=== PATIENT | male | born 1935 | race Caucasian/White ===

== ENCOUNTER → 2017-10-18 08:29 | Outpatient (CLI) | payer MEDICARE, SELFPAY ==
[2017-10-18 10:05] LABS: Absolute Neutrophil Count 3.3 X10^3/uL (2.0-7.7); Basophil# 0.04 X10^3/uL; Basophil% 0.6 % (0-1); Eosinophil# 0.39 X10^3/uL; Eosinophils% 6.3 % (0-5); Hematocrit 45.8 % (40-54); Hemoglobin 14.8 g/dl (13.0-16.5); Lymphocyte % 25.9 % (19-41); Mean Corp Hgb Conc 32.3 g/gl (32-36); Mean Corpuscular Hgb 29.7 pg (27.0-32.0); Monocyte# 0.83 X10^3/uL; Monocyte% 13.5 % (0-10); Neutrophil % 53.5 % (47-70); Platelet Count 205 K/mm3 (150-450); RBC Distribution Width CV 13.6 % (11.6-14.6); RBC Distribution Width SD 45.5 fl (35.1-43.9); Red Blood Count 4.98 M/mm3 (4.6-6.2); White Blood Count 6.2 K/mm3 (4.4-11.0)
[2017-10-18 10:13] LABS: POSITIVE COUNT NO; POSITIVE DIFFERENTIAL NO; POSITIVE MORPHOLOGY NO
[2017-10-18 10:18] LABS: ALB/GLOB Ratio 1.3 RATIO (0.9-2.4); AST(SGOT) 18 U/L (15-37); Alanine Aminotransfer ALT/SGPT 25 U/L (16-61); Alkaline Phosphatase 85 U/L (45-117); Anion Gap 10 (5-15); BUN 23 mg/dL (7-18); BUN/Creat Ratio 21.9 RATIO (10-20); Calcium,Total 9.1 mg/dL (8.5-10.1); Chloride 105 mmol/L (98-107); Creatinine, Serum 1.05 mg/dL (0.70-1.30); EST Glomerular Filtration Rate 72 mL/min (>60); Est Glom Filt Rate - Afr Amer 87 mL/min (>60); Globulin 3.1 g/dL (2.2-4.2); Glucose 95 mg/dL (74-106); Potassium 3.9 mmol/L (3.5-5.1); Protein, Total 7.1 g/dL (6.4-8.2); Sodium Level 142 mmol/L (136-145)
[2017-10-18 10:24] LABS: Vitamin D,25 Hydroxy 38.1 ng/mL (29.95-100.01)
== END ==
PROVIDERS: Family Provider Internal Medicine; PCP Internal Medicine; Visit Provider Internal Medicine
DX: E55.9 Vitamin D deficiency, unspecified (principal); I10 Essential (primary) hypertension
CPT/HCPCS: 36415; 80053; 82306; 85025

== ENCOUNTER → 2018-06-17 | Outpatient (CLI) | payer MEDICARE, SELFPAY ==
[2018-06-02 08:55] VITALS: BMI 29.1
--- NOTE | 2018-06-17 08:08 | ECHOD_ITS ---
Reason For Study: Murmur Procedure This was a 2D Doppler, Color Flow transthoracic echocardiogram. The exam was of adequate technical quality. Exam performed in department. Left Ventricle Normal LV size. Sigmoid septum. Apical false tendon noted. Left ventricular systolic function is normal. The estimated ejection fraction is 60 %. No evidence for diastolic dysfunction. No regional wall motion abnormalities noted. Right Ventricle Normal RV size. Normal systolic function. Atria Normal left atrium. Normal right atrium. No doppler evidence for ASD. Mitral Valve There is mild mitral annular calcification. Extension of the mitral annular calcification onto the base of the posterior mitral valve leaflet. Trivial mitral valve insufficiency. Tricuspid Valve Normal tricuspid valve. Trivial tricuspid valve insufficiency. Right ventricular systolic pressure estimated to be 24 mmHg. Aortic Valve Trisinus/trileaflet aortic valve. Mild diffuse aortic valve thickening. Mild-Moderate (1-2+) aortic valve insufficiency. Pulmonic Valve The pulmonic valve is not well visualized. Trivial pulmonic valve insufficiency. Great Vessels Mild to moderately dilated aortic root. Pericardium/Pleural No pericardial effusion. MMode/2D Measurements & Calculations LVIDd: 4.3 cm IVSd: 0.90 cm Ao root diam: 4.4 cm LVIDs: 2.4 cm LVPWd: 0.95 cm RVDd: 3.5 cm FS: 43.0 % LAV(MOD-bp): 49.0 ml LA A4 area: 14.6 cm2 LA dimension(2D): 3.3 cm LAV(MOD-bp) Indexed: 25.6 ml/m2 LAV(MOD-sp2): 55.3 ml LAV(MOD-sp4): 38.8 ml RA A4 area: 16.2 cm2 Doppler Measurements & Calculations MV E max sahil: 55.3 cm/sec Lat Peak E' Sahil: 6.7 cm/sec Med Peak E' Sahil: 4.7 cm/sec MV A max sahil: 80.6 cm/sec E/E' lat: 8.3 E/E' med: 11.7 MV E/A: 0.69 Ao V2 max: 153.9 cm/sec AI max sahil: 348.0 cm/sec LV V1 max: 113.2 cm/sec Ao max P.5 mmHg AI max P.5 mmHg LV V1 max P.1 mmHg AI dec slope: 165.0 cm/sec2 AI P1/2t: 617.8 msec PA V2 max: 80.6 cm/sec TR max sahil: 230.9 cm/sec TR max P.3 mmHg Interpretation Summary Left ventricular systolic function is normal. The estimated ejection fraction is 60 %. Sigmoid septum. Apical false tendon noted. There is mild mitral annular calcification. Extension of the mitral annular calcification onto the base of the posterior mitral valve leaflet. Trivial mitral valve insufficiency. Trivial tricuspid valve insufficiency. Mild diffuse aortic valve thickening. Mild-Moderate (1-2+) aortic valve insufficiency. Trivial pulmonic valve insufficiency. Mild to moderately dilated aortic root. Right ventricular systolic pressure estimated to be 24 mmHg. No evidence for diastolic dysfunction. Ordering Physician: Chon Almanzar Referring Physician: Keisha Briscoe M.D. Performed By: Rachelle Koenig [facility]
== END | disposition home or self-care (01) ==
PROVIDERS: Family Provider Internal Medicine; PCP Internal Medicine; Referring Provider Internal Medicine Cardiovascular Disease; Visit Provider Internal Medicine Cardiovascular Disease
DX: I25.10 Atherosclerotic heart disease of native coronary artery without angina pectoris (principal); I35.1 Nonrheumatic aortic (valve) insufficiency
CPT/HCPCS: 93306

== ENCOUNTER 2019-01-01 06:57 | Observation (INO) | payer MEDICARE, SELFPAY ==
[2018-12-17 15:01] VITALS: BMI 29.7
[2019-01-01] VITALS (12 sets, daily range): BP systolic 120–139; BP diastolic 53–80; PULSE 53–71; RESP 12–19; TEMP 36.4–36.8; O2SAT 92–96; BMI 28.4; BMI 28.5
[2019-01-01 07:06] LABS: Bedside Glucose 104 mg/dL (70-110)
--- NOTE | 2019-01-01 07:11 | EKG12_ITS ---
Test Reason : Blood Pressure : / mmHG Vent. Rate : 058 BPM Atrial Rate : 058 BPM P-R Int : 232 ms QRS Dur : 088 ms QT Int : 428 ms P-R-T Axes : 033 -23 018 degrees QTc Int : 420 ms Sinus bradycardia with 1st degree A-V block Minimal voltage criteria for LVH, may be normal variant Borderline ECG Confirmed by JANETTE NINA, JACINTA ([id number]), editor at large MAHOGANY GARCIA ([id number] on 01/06/2019 11:20:17 AM Referred By: COURTNEY Confirmed By:JACINTA SAVAGE MD
--- NOTE | 2019-01-01 07:11 | CT_ITS ---
STUDY: CT BRAIN WITHOUT CONTRAST REASON FOR EXAM: Male, 83 years old. Dizziness and left arm weakness after being injected for nuclear medicine stress test. RADIATION DOSAGE (If Supplied By Facility): CTDIvol = ( 44.99 ) mGy, DLP = ( 815.79 ) mGycm TECHNIQUE: Transaxial CT imaging of the brain was performed without administration of intravenous contrast material. Individualized dose optimization techniques were used for this CT. COMPARISON: No relevant priors. FINDINGS: Normal soft tissue structures. Normal calvarium. There is mild cerebral atrophy with widening of the extra-axial spaces and ventricular dilatation. There are areas of decreased attenuation within the white matter tracts of the supratentorial brain, consistent with microvascular disease changes. Normal basal ganglia and thalami. Normal brainstem. There is mild cerebellar atrophy. There is mild atherosclerotic calcification of the left cavernous carotid artery.. There is no intracranial hemorrhage. There are no findings of an acute ischemic infarction. There is minimal mucoperiosteal thickening in bilateral maxillary, ethmoid, and sphenoid sinuses. There is no evidence for acute sinusitis. CT/Brain/Head without Contrast IMPRESSION: Chronic involutional changes of the brain. No demonstrated acute intracranial process. Electronically Signed: Philip Hooper MD at 8:01 EST , Service support ,
--- NOTE | 2019-01-01 07:13 | ED.DCSUM_ITS ---
History of Present Illness Chief Complaint: Dizziness Informant: Patient, Significant Other Onset: Today Narrative: Patient presents to the nuclear stress lab. He was at the hospital this morning for nuclear stress test. They injected him with the radionuclide into an IV that have been established with a right AC. Patient states shortly after the injection he became very dizzy and felt as if he was drunk. He had difficulty using his arms, left greater than right. He denies difficulty with his legs but again states that he was walking like he was drunk. Symptoms lasted somewhere between 5 and 15 minutes and are resolved at this time. Patient states he amilcar ntflorencia feels back to baseline. He denies having any chest pain or palpitations during the episode. He denies history of stroke or TIA. - Past Medical History (1) Atherosclerotic heart disease of [place] coronary artery without angina pectoris Status: Chronic (2) Essential hypertension Status: Chronic (3) Nonrheumatic aortic valve insufficiency Status: Chronic (4) Pure hypercholesterolemia Status: Chronic (5) Thoracic aortic aneurysm without rupture Status: Chronic Past Medical History - Allergies and Home Meds Allergies/Adverse Reactions: Allergies Penicillins Allergy (Verified 01/01/19 07:00) Unknown Primary Care Physician: Keisha Briscoe MD [Primary Care Provider] - Doctors: Dr. Almanzar Prior records reviewed: Yes Lives: Spouse/ Significant Other Smoking Status: Never smoker Review of Systems General: Denies: Chills, Fever Eyes: Denies: Visual changes - bilaterally ENT: Denies: Bilateral ear pain Cardiovascular: Denies: Chest pain, Palpitations Respiratory: Denies: Dyspnea, Cough Gastrointestinal: Denies: Abdominal pain, Nausea, Vomiting, Diarrhea Musculoskeletal: Denies: Extremity Pain Skin: Denies: Rash Neurological: Reports: Weakness. Denies: Headache Allergy: Denies: Uticaria Physical Exam Vital Signs/Narrative: Vital Signs Temp Pulse Resp BP Pulse Ox 01/01/19 06:58 97.5 F L 56 L 12 139/62 H 95 Inital Vital Signs reviewed: Yes General: Well nourished, Well developed Head: Normocephalic ENT: Moist mucous membranes Neck: Supple Cardiovascular: Regular rate, Regular rhythm Respiratory: No distress, CTA bilaterally Abdomen: Soft, Nontender Extremities: Nontender, No edema Skin: Normal color, No rash Neurological: Alert, Oriented x3, Normal Strength, Normal Sensation, - - NIH equals 0 Psychological: Normal affect Diagnostic/Tx/Re-eval Impressions Brain CT 01/01/19 07:11 IMPRESSION: Chronic involutional changes of the brain. No demonstrated acute intracranial process. Electronically Signed: Philip Hooper MD at 8:01 EST , Service support , Chest X-Ray 01/01/19 07:15 IMPRESSION: Degenerative changes, as described above. No demonstrated acute cardiopulmonary process. Electronically Signed: Ingram Joslyn, at 7:44 EST Tel , Service support , 01/01/19 07:11 Brain/Head without Contrast [CT] Stat 01/01/19 07:15 Chest 1 View (Portable) [RAD] Stat Laboratory Results 01/01/19 01/01/19 01/01/19 07:02 07:15 07:15 WBC 5.8 RBC 4.81 Hgb 14.5 Hct 43.4 MCV 90.2 MCH 30.1 MCHC 33.4 RDW Std Deviation 41.8 RDW Coeff of Mt 12.8 Plt Count 191 MPV 9.8 Immature Gran % (Auto) 0.500 Neut % (Auto) 67.2 Lymph % (Auto) 16.0 L Geary % (Auto) 10.0 Eos % (Auto) 5.3 H Baso % (Auto) 1.0 Absolute Neuts (auto) 3.9 Absolute Lymphs (auto) 0.93 Nucleated RBC % 0 Sodium 143 Potassium 3.8 Chloride 109 H Carbon Dioxide 26.0 Anion Gap 8 BUN 27 H Creatinine 1.10 Estim Creat Clear Calc 50.95 Est GFR (MDRD) Af Amer 83 Est GFR (MDRD) Non-Af 68 BUN/Creatinine Ratio 24.5 H Glucose 100 Calcium 8.9 Troponin I < 0.015 POC Glucose 104 - EKG Initial EKG Interpretation: Sinus Bradycardia - Sinus bradycardia 58 bpm with no acute ischemia. - Medical Decision Making Patient has been given IV fluids here. He said no recurrence of symptoms. I did review the patient's last 2 cardiology visits and his heart rate has been in the mid 50s at that time as well. I spoke with Dr. Almanzar. He states the text and the nuclear lab were quite concerned that his symptoms seem to affect primarily his left arm and they were worried about stroke. Patient had NIH score of 0 on arrival here. I spoken with patient and we will admit patient for further TIA work-up. ED Disposition - Plan for ED Patient: Disposition: Acute Care Hospital [facility] Diagnosis: TIA (transient ischemic attack) Referrals: Keisha Briscoe MD [Primary Care Provider] -
--- NOTE | 2019-01-01 07:15 | RAD_ITS ---
STUDY: X-RAY CHEST REASON FOR EXAM: Male, 83 years old. SOB/DYSPNEA, DIZZINESS, LEFT ARM WEAKNESS S/P INJECTION FOR STRESS TEST TODAY; PATIENT STATES HAS KNOWN AORTIC ANEURYSM TECHNIQUE: Frontal and lateral views of the chest. COMPARISON: None. FINDINGS: The lungs are clear and expanded. There is no demonstrated pleural abnormality. Normal size heart. Normal mediastinum and latoya. Normal visualized pulmonary arteries. There is atherosclerotic calcification of the aortic arch with tortuosity. There is mild old compression fracture of T10. There is degenerative osteoarthritis of the bilateral shoulders. There is no demonstrated abnormality of the visualized soft tissue structures of the upper abdomen. RAD/Chest 1 View (Portable) IMPRESSION: Degenerative changes, as described above. No demonstrated acute cardiopulmonary process. Electronically Signed: Juan Jose Jorgensen, at 7:44 EST Tel , Service support ,
[2019-01-01 07:29] LABS: Absolute Lymphocyte Count 0.93 X10^3/uL (0.83-4.51); Absolute Neutrophil Count 3.9 X10^3/uL (2.0-7.7); Basophil# 0.06 X10^3/uL; Eosinophil# 0.31 X10^3/uL; Eosinophils% 5.3 % (0-5); Hematocrit 43.4 % (40-54); Hemoglobin 14.5 g/dL (13.0-16.5); Lymphocyte # 0.93 X10^3/ul (4.0); Mean Corp Hgb Conc 33.4 g/dL (32-36); Mean Corpuscular Hgb 30.1 pg (27.0-32.0); Mean Corpuscular Volume 90.2 fL (80-94); Mean Platelet Vol. 9.8 fl (6.2-12.0); Monocyte# 0.58 X10^3/uL; NRBC Flagged by Analyzer 0 % (0-5); Neutrophil # 3.89 X10^3/uL (2.7-7.7); Neutrophil % 67.2 % (47-70); Platelet Count 191 K/mm3 (150-450); RBC Distribution Width CV 12.8 % (11.6-14.6); RBC Distribution Width SD 41.8 fl (35.1-43.9); Red Blood Count 4.81 M/mm3 (4.6-6.2); White Blood Count 5.8 K/mm3 (4.4-11.0)
[2019-01-01] MEDS: 0.9% Normal Saline 1,000 ML 150 ML IV (07:29)
[2019-01-01 07:38] LABS: Anion Gap 8 (5-15); BUN 27 mg/dL (7-18); BUN/Creat Ratio 24.5 RATIO (10-20); Calcium,Total 8.9 mg/dL (8.5-10.1); Chloride 109 mmol/L (98-107); EST Glomerular Filtration Rate 68 mL/min (>60); Est Glom Filt Rate - Afr Amer 83 mL/min (>60); Estimated Creatinine Clearance 50.95 ml/min; Glucose 100 mg/dL (74-106); Potassium 3.8 mmol/L (3.5-5.1); Sodium Level 143 mmol/L (136-145)
--- NOTE | 2019-01-01 09:17 | MRI_ITS ---
STUDY: MRI BRAIN WITHOUT CONTRAST REASON FOR EXAM: Male, 83 years old. dizziness after medication injection for stress test ,rt arm wea. TECHNIQUE: Standardized multiplanar fat and water weighted pulse sequences were obtained. COMPARISON: 01/01/2019 CT of the head FINDINGS: There is mild cerebral atrophy with widening of the extra-axial spaces and ventricular dilatation. There are a limited number of small white matter hyperintensities, distributed throughout the deep white matter tracts of the cerebral hemispheres, consistent with minimal chronic white matter ischemic changes. Normal bilateral basal ganglia. Normal thalami. There is no extra-axial fluid accumulation. Normal flow voids within the major intracranial circulation suggesting patency by spin echo criteria. Normal sella turcica, pituitary gland, infundibular stalk, optic chiasm and hypothalamus. Normal tectal plate and pineal gland. Normal midbrain, sukhwinder and medulla. Normal cerebellum. Normal basal cisterns. MRI/Brain without Contrast IMPRESSION: No acute intracranial abnormality. Minimal chronic microvascular ischemic changes. Electronically Signed: Kee Lira MD at 14:21 EST Tel , Service support ,
--- NOTE | 2019-01-01 09:17 | MRI_ITS ---
STUDY: MRA NECK WITHOUT CONTRAST REASON FOR EXAM: Male, 83 years old. dizziness after medication injection for stress test ,rt arm wea. TECHNIQUE: Source images were obtained, MIPs were performed. The study was performed unenhanced. COMPARISON: None. FINDINGS: RIGHT CAROTID ARTERIES: Antegrade flow within the right common carotid artery (CCA). Antegrade flow within the right carotid bulb. There appears to be moderate atherosclerotic plaque formation of the origin of the right internal carotid artery with an estimated stenosis of greater than 70% stenosis. Antegrade flow within the visualized cervical portion of the right internal carotid artery. LEFT CAROTID ARTERIES: Antegrade flow within the left common carotid artery (CCA). Antegrade flow within the left common carotid bulb. There appears to be moderate atherosclerotic plaque formation of the origin of the left internal carotid artery with an estimated stenosis of 50% stenosis. Antegrade flow within the visualized cervical portion of the left internal carotid artery. VERTEBRAL ARTERIES: Antegrade flow within the bilateral vertebral artery. 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 Further evaluation with CTA is recommended. Electronically Signed: Kee Lira MD at 14:29 EST Tel , Service support ,
--- NOTE | 2019-01-01 09:17 | MRI_ITS ---
STUDY: MRA OF THE HEAD WITHOUT CONTRAST REASON FOR EXAM: Male, 83 years old. dizziness after medication injection for stress test ,rt arm wea. TECHNIQUE: 3-D [id number] (TOF) imaging was performed with MIPs. The study was performed unenhanced. COMPARISON: None. FINDINGS: Patent right cavernous carotid artery. Patent left cavernous carotid artery. Patent right A1 segments of the anterior cerebral artery. Patent left A1 segments of the anterior cerebral artery. Unremarkable anterior communicating artery (ACOM) region. Normal bilateral A2 segments of the anterior cerebral arteries. Patent right M1 and M2 segments of the middle cerebral arteries, with a unremarkable M1 bifurcation. Patent left M1 and M2 segments of the middle cerebral arteries, with a unremarkable M1 bifurcation. There is non-visualization of the right posterior communicating artery (PCOM). There is non-visualization of the left posterior communicating artery (PCOM). Patent basilar artery with a normal basilar bifurcation. Patent bilateral posterior cerebral arteries. MRI/MRA Head ONLY without Contrast IMPRESSION: No occlusion or significant stenosis. Electronically Signed: Kee Lira MD at 14:23 EST Tel , Service support ,
[2019-01-01 09:50] LABS: Cholesterol 115 mg/dL (200); High Density Lipoprotein 46 mg/dL; Thyroid Stim Hormone (TSH) 1.91 uIU/mL (0.358-3.74); Triglycerides 89 mg/dL; Very Low Density Lipoprotein 18 mg/dL (5-40)
--- NOTE | 2019-01-01 10:16 | PCM.HP.STD ---
Problem List (1) TIA (transient ischemic attack) Status: Acute (2) Pure hypercholesterolemia Status: Chronic (3) Essential hypertension Status: Chronic (4) Thoracic aortic aneurysm without rupture Status: Chronic History of Present Illness Date of Admission: 01/01/19 Chief Complaint: Dizziness, left arm weakness. The patient is a 83 year old M with past medical history as mentioned above presented to the emergency room because of dizziness and left arm weakness. This morning, patient had nuclear stress test, and received the IV radionuclide and shortly after, he became dizzy, lightheaded and he felt that he was a drunk. He mentioned that he had difficulty using both arms but weakness was more on the left arm, was not able to put his coat on and those symptoms lasted for several minutes. He reported associated mild blurred vision. He denied slurred speech, numbness or tingling. He denied chest pain, palpitation, sweating, syncope or presyncope. He had a history of hypertension and he has been on metoprolol and his blood pressure has been under control. He has a history of benign prostatic hypertrophy and he has been on Flomax and Avodart. He had a history of thoracic aortic aneurysm which has been stable on follow-ups. Upon arrival to ED, his NIH score was 0. His heart rate was in the high 50s, otherwise his vital signs are stable. Routine blood work was unremarkable. EKG revealed bradycardia, heart rate of 58, first-degree AV block with VT interval of 232 ms, no other acute findings. Troponin was negative. Chest x-ray showed no acute findings. CT scan brain showed no acute infarct or hemorrhage. He is being admitted for TIA for evaluation. Past Medical History Past Medical History (Chronic Problems): Chronic Problems (Last Updated 01/01/19 @ 10:16 by Radha Esquivel MD) Pure hypercholesterolemia (Chronic) Essential hypertension (Chronic) Fatigue (Chronic) SOB (shortness of breath) (Chronic) Thoracic aortic aneurysm without rupture (Chronic) Nonrheumatic aortic valve insufficiency (Chronic) Medical History: Medical History (Last Updated 01/01/19 @ 10:16 by Radha Esquivel MD) Pure hypercholesterolemia (Chronic) E78.00 Essential hypertension (Chronic) I10 Thoracic aortic aneurysm without rupture (Chronic) I71.2 Nonrheumatic aortic valve insufficiency (Chronic) I35.1 Osteoarthritis M19.90 BPH (benign prostatic hyperplasia) N40.0 Hypertension (Inactive) I10 Allergies Penicillins Allergy (Verified 01/01/19 07:00) Unknown Home Medications: Ambulatory Orders Medication Instructions Recorded Aspirin [Aspirin, Baby] 81 mg PO DAILY@0800 04/14/16 Calcium Carb,Gluc/Mag Ox,Gluc 1 ea PO BID 04/14/16 [Calcium Magnesium Caplet] Citalopram [Celexa] 10 mg PO DAILY 04/14/16 Dutasteride [Avodart] 0.5 mg PO DAILY 04/14/16 Multivit-Min/FA/Lycopen/Lutein 1 ea PO DAILY 04/14/16 [Centrum Silver Men Tablet] [place]-3 Fatty Acids/Fish Oil 1 ea PO DAILY 04/14/16 [[place] 3 1,000 mg Softgel] Pravastatin [Pravachol] 40 mg PO DAILY 04/14/16 tamsulosin 0.4 mg capsule 0.4 mg PO QDAY 01/22/17 coenzyme Q10 30 mg capsule 30 mg PO QDAY 01/24/17 metoprolol tartrate 25 mg tablet 12.5 mg PO BID tab 01/24/17 vit 2 tab PO DAILY 01/24/17 Z-zgwwagl-qawsqfkfx-rutin-[id number] 500 mg-50 mg-25 mg-40 mg tablet vit C,E,zinc,copper-fonci9d 250 1 cap PO DAILY 11/04/17 mg-lutein 5 mg-zeaxanthin 1 mg capsule Surgical History: Surgical History (Last Reviewed 12/17/18 @ 15:03 by Xochitl Duarte) H/O hemorrhoidectomy Z98.890 H/O hernia repair Z98.890, Z87.19 Surgical History: herniorrhaphy Psychiatric History: No pertinent psych hx Lives: Spouse/ Significant Other Smoking Status: Never smoker Alcohol: None Drugs: None - *Family History Maternal Family History: Family History (Last Reviewed 12/17/18 @ 15:03 by Xochitl Duarte) Father CAD (coronary artery disease) Mother CAD (coronary artery disease) History Items: No pertinent history Paternal Family History: Family History (Last Reviewed 12/17/18 @ 15:03 by Xochitl Duarte) Father CAD (coronary artery disease) Mother CAD (coronary artery disease) History Items: No pertinent history Review of Systems Constitutional: Reports: Weakness. Denies: Anorexia, Chills, Fever Eyes: Reports: Blurred vision. Denies: Double vision, Drainage, Redness HEENT: Denies: Difficulty Hearing, Ear Pain, Eye Pain, Nasal Congestion, Sore Throat Cardiovascular: Reports: Light Headedness. Denies: Chest Pain, Chest Pressure, Chest Tightness, Heaviness, Palpitations, Syncope Respiratory: Denies: Cough, Hemoptysis, Pleuritic Pain, Shortness of Breath, Sputum production, Wheezing Gastrointestinal: Denies: Abdominal Pain, Constipation, Diarrhea, Nausea, Vomiting Genitourinary: Denies: Dysuria, Frequency, Hematuria Musculoskeletal: Denies: Arm Pain, Back Pain, Foot Pain Skin: Denies: Dryness, Rash Neurological: Reports: Blurred vision, Focal weakness. Denies: Balance problems, Change in Speech, Slurred speech, Confusion, Headaches Psychiatric: Denies: Anxiety, Depression Endocrine: Denies: Change in Body Habitus, Polydipsia, Polyuria VTE Information - Inpt Only VTE Present on Admission: No VTE Mechan Device Prophylaxis: None VTE Pharm Prophylaxis ordered?: Yes Patient Problems: Active and Suspected Problems (Last Updated 01/01/19 @ 10:16 by Radha Esquivel MD) TIA (transient ischemic attack) (Acute) - Physical Exam Vitals/I&O's: Vital Signs Temp Pulse Resp BP Pulse Ox 97.8 F 53 L 16 138/53 H 96 01/01/19 09:22 01/01/19 09:55 01/01/19 09:22 01/01/19 09:22 01/01/19 09:22 Oxygen Delivery Method Room Air Weight: 181 lb 10.574 oz Body Mass Index (BMI) 28.4 Finger Stick Blood Glucose 104 General: Alert, Oriented x3, Cooperative, No apparent distress HEENT: Atraumatic, PERRLA, EOMI, Normocephalic Oral: Moist Mucosa, No Gingival or Mucosal Lesions/ Ulcerations Neck: Supple, No JVD, Negative Carotid Bruits, Trachea Midline, Thyroid Normal Size and Texture Lungs: Clear to auscultation, Normal air movement, No rhonchi, No wheeze, No rales Cardiovascular: Regular rate, Regular Rhythm, Normal S1, Normal S2, PMI Normal, Bradycardic Abdomen: Bowel Sounds Present, Soft, Non Tender, Non-Distended, No Hepato-splenomegaly Extremities: No clubbing, No cyanosis, No edema Skin: No rashes, No breakdown Lymphatic: No Cervical, Supraclavicular, or Inguinal Adenopathy Neurological: Cranial nerves II-XII grossly intact, Motor Exam 5/5 strength throughout Psych/Mental Status: Normal Affect, Appropriate, Alert and oriented to time, place, person, mood and affect Laboratory Results 01/01/19 07:02: POC Glucose 104 01/01/19 07:15: WBC 5.8, RBC 4.81, Hgb 14.5, Hct 43.4, MCV 90.2, MCH 30.1, MCHC 33.4, RDW Std Deviation 41.8, RDW Coeff of Mt 12.8, Plt Count 191, MPV 9.8, Immature Gran % (Auto) 0.500, Neut % (Auto) 67.2, Lymph % (Auto) 16.0 L, [place] % (Auto) 10.0, Eos % (Auto) 5.3 H, Baso % (Auto) 1.0, Absolute Neuts (auto) 3.9, Absolute Lymphs (auto) 0.93, Nucleated RBC % 0 01/01/19 07:15: Sodium 143, Potassium 3.8, Chloride 109 H, Carbon Dioxide 26.0, Anion Gap 8, BUN 27 H, Creatinine 1.10, Estim Creat Clear Calc 50.95, Est GFR (MDRD) Af Amer 83, Est GFR (MDRD) Non-Af 68, BUN/Creatinine Ratio 24.5 H, Glucose 100, Calcium 8.9, Troponin I < 0.015 01/01/19 07:15: Triglycerides 89, Cholesterol 115, LDL Cholesterol 51, VLDL Cholesterol 18, HDL Cholesterol 46, TSH 1.91 Clinical Impression(s) from Imaging Studies Brain CT 01/01/19 07:11 IMPRESSION: Chronic involutional changes of the brain. No demonstrated acute intracranial process. Electronically Signed: Philip Hooper MD at 8:01 EST , Service support , Chest X-Ray 01/01/19 07:15 IMPRESSION: Degenerative changes, as described above. No demonstrated acute cardiopulmonary process. Electronically Signed: Juan Jose Jorgensen, at 7:44 EST Tel , Service support , Current Medications Acetaminophen (Tylenol) 650 mg PO Q6H PRN PRN PRN Reason: Pain Score 1-3/Temp > 100.7 F Acetylcysteine (Mucomyst) 1,200 mg PO BID [facility] Stop: 01/02/19 22:01 Aspirin (Aspirin, Baby) 81 mg PO DAILY@0800 [facility] Atorvastatin Calcium (Lipitor) 80 mg PO QHS [facility] Enoxaparin Sodium (Lovenox) 40 mg SC DAILY@1000 [place] Sodium Chloride () 1,000 mls @ 75 mls/hr IV .[id number] [facility] Stop: 01/01/19 22:36 Influenza Virus Vaccine Quadrival (Flucelvax /Fluzone ) 0.5 ml IM .ONCE ONE Stop: 01/01/19 09:23 Lorazepam (Ativan) 1 mg IV X1 ONE Stop: 01/01/19 10:09 Ondansetron HCl (Zofran) 4 mg IV Q8H PRN PRN PRN Reason: NAUSEA/VOMITING Sodium Chloride () 10 - 40 ml IV UD PRN PRN Reason: SALINE FLUSH Assessment/Plan All Active Problems (Last Updated 01/01/19 @ 10:16 by Radha Esquivel MD) TIA (transient ischemic attack) (Acute) This is an 83 years old male patient presented to the emergency because of dizziness and left arm weakness after he received IV radionuclide for nuclear stress test this morning and he is being admitted for TIA for evaluation. #1 TIA: Patient started having dizziness and left upper extremity weakness after he received IV radionuclide. Radionuclide does not cause any neurological symptoms as side effects. NIH score was 0 up to arrival to ER. No focal deficit on physical exam. His vitals are stable. Was bradycardic, as he has been in the 50s which is chronic for him and not new. CT scan brain showed no acute findings. EKG revealed sinus bradycardia, first-degree AV block, no other cardiac arrhythmias or acute ischemic changes. Plan: Admit to PCU for observation, cardiac monitoring, NIH stroke scale, start baby aspirin, Lipitor, fasting lipid profile, MRI brain, MRA of the head and neck, neurology consult, PT OT evaluation and treatment. Patient had 2D echocardiogram back on May, that revealed ejection fraction of 60%, trivial MR, trivial TR, mild to moderate aortic insufficiency, mild to moderate aortic root dilatation, RVSP of 24. At this time, I do not think that we need to repeat the echocardiogram at this time. #2 hypertension: Blood pressure stable, continue metoprolol. #3 hyperlipidemia: Started on Lipitor, fasting lipid profile. #4 thoracic aortic aneurysm: Stable, no acute issues. #5 benign prostatic hyperplasia: Continue Flomax and Avodart. #6 DVT prophylaxis: Subcu Lovenox. This note was generated with [employer] dictation software. It may contain incorrect words, spelling, and punctuation that were not noted in checking the note before signing. Code Visit OBSV E&M: 55651 Initial observation care L3
[2019-01-01] MEDS: LORazepam 2 MG/ML Syringe 1 MG IV (10:54)
[2019-01-01] MEDS: 0.9% Saline Lock 10 ML Syringe IV (10:54)
--- NOTE | 2019-01-01 11:12 | PCM.CONS.GEN ---
Problem List (1) Dizziness Status: Acute Reason for Consult Date of Consultation: 01/01/19 Reason for Consultation: Dizziness and possible left hand weakness History of Present Illness: The patient is a 83 year old M with PMH HTN, HLD, thoracic aortic aneurysm, BPH admitted with acute onset dizziness and possible left hand weakness. Per patient this morning 01/01/2019 he came in for a nuclear stress test, he was given injection in the arm and immediately after that he developed acute dizziness, was very wobbly while walking, he felt his left arm was incoordinated and possibly weak per patient, did not have any leg weakness, speech disturbances or visual disturbances at that time, the symptoms lasted for about 10-15 minutes per patient, per ED documentation his NIHSS stroke scale was 0 on admission to the ED. at present patient feels he is back to his baseline self, denies any headache, dizziness, speech problems, visual disturbances, sensory loss or focal motor weakness. Per patient he does take aspirin every day at baseline but had stopped it for the nuclear stress testing since yesterday. Per patient he lives with his , denies any falls, does not use any cane or walker to ambulate, does drive and does not need any assistance for his ADLs. CT head done on admission reported nothing acute. [] Past Medical History Past Medical History (Chronic Problems): Chronic Problems (Last Updated 01/01/19 @ 10:16 by Radha Esquivel MD) Pure hypercholesterolemia (Chronic) Essential hypertension (Chronic) Fatigue (Chronic) SOB (shortness of breath) (Chronic) Thoracic aortic aneurysm without rupture (Chronic) Nonrheumatic aortic valve insufficiency (Chronic) Medical History: Medical History (Last Updated 01/01/19 @ 10:16 by Radha Esquivel MD) Pure hypercholesterolemia (Chronic) E78.00 Essential hypertension (Chronic) I10 Thoracic aortic aneurysm without rupture (Chronic) I71.2 Nonrheumatic aortic valve insufficiency (Chronic) I35.1 Osteoarthritis M19.90 BPH (benign prostatic hyperplasia) N40.0 Hypertension (Inactive) I10 Allergies Penicillins Allergy (Verified 01/01/19 07:00) Unknown Home Medications: Ambulatory Orders Medication Instructions Recorded Aspirin [Aspirin, Baby] 81 mg PO DAILY@0800 04/14/16 Calcium Carb,Gluc/Mag Ox,Gluc 1 ea PO BID 04/14/16 [Calcium Magnesium Caplet] Citalopram [Celexa] 10 mg PO DAILY 04/14/16 Dutasteride [Avodart] 0.5 mg PO DAILY 04/14/16 Multivit-Min/FA/Lycopen/Lutein 1 ea PO DAILY 04/14/16 [Centrum Silver Men Tablet] [place]-3 Fatty Acids/Fish Oil 1 ea PO DAILY 04/14/16 [[place] 3 1,000 mg Softgel] Pravastatin [Pravachol] 40 mg PO DAILY 04/14/16 tamsulosin 0.4 mg capsule 0.4 mg PO QDAY 01/22/17 coenzyme Q10 30 mg capsule 30 mg PO QDAY 01/24/17 metoprolol tartrate 25 mg tablet 12.5 mg PO BID tab 01/24/17 vit 2 tab PO DAILY 01/24/17 T-isoofoc-lahcehusv-rutin-qyyv606 500 mg-50 mg-25 mg-40 mg tablet vit C,E,zinc,copper-gmivi4r 250 1 cap PO DAILY 11/04/17 mg-lutein 5 mg-zeaxanthin 1 mg capsule Surgical History: Surgical History (Last Reviewed 12/17/18 @ 15:03 by Xochitl Duarte) H/O hemorrhoidectomy Z98.890 H/O hernia repair Z98.890, Z87.19 Surgical History: herniorrhaphy Psychiatric History: No pertinent psych hx Lives: Spouse/ Significant Other Smoking Status: Never smoker Alcohol: None Drugs: None - *Family History Maternal Family History: Family History (Last Reviewed 12/17/18 @ 15:03 by Xochitl Duarte) Father CAD (coronary artery disease) Mother CAD (coronary artery disease) History Items: No pertinent history Paternal Family History: Family History (Last Reviewed 12/17/18 @ 15:03 by Xochitl Duarte) Father CAD (coronary artery disease) Mother CAD (coronary artery disease) History Items: No pertinent history Review of Systems Constitutional: Reports: - - Complete ROS negative except as documented in HPI Patient Problems: Active and Suspected Problems (Last Updated 01/01/19 @ 10:16 by Radha Esquivel MD) Dizziness (Acute) TIA (transient ischemic attack) (Acute) - Physical Exam Vitals/I&O's: Vital Signs Temp Pulse Resp BP Pulse Ox 97.8 F 53 L 16 138/53 H 96 01/01/19 09:22 01/01/19 09:55 01/01/19 09:22 01/01/19 09:22 01/01/19 09:22 Oxygen Delivery Method Room Air Weight: 82.4 kg Body Mass Index (BMI) 28.4 Finger Stick Blood Glucose 104 General: Alert HEENT: Normocephalic Neck: Supple Lungs: Normal air movement Cardiovascular: Normal S1, Normal S2 Abdomen: Bowel Sounds Present Extremities: No cyanosis Neurological: - - Conscious, alert, AOA x3, CN II to XII grossly intact, power 5/5 both upper and lower extremities, plantars B/L flexor, no pronator drift, no sensory loss, no cerebellar signs, gait deferred, reflexes + B/L B/S/T/K/A, No NR, fundus not visualized, NIHSS 0 at present, mRS 0 at baseline Psych/Mental Status: Normal Affect Laboratory Results 01/01/19 07:02: POC Glucose 104 01/01/19 07:15: WBC 5.8, RBC 4.81, Hgb 14.5, Hct 43.4, MCV 90.2, MCH 30.1, MCHC 33.4, RDW Std Deviation 41.8, RDW Coeff of Mt 12.8, Plt Count 191, MPV 9.8, Immature Gran % (Auto) 0.500, Neut % (Auto) 67.2, Lymph % (Auto) 16.0 L, [place] % (Auto) 10.0, Eos % (Auto) 5.3 H, Baso % (Auto) 1.0, Absolute Neuts (auto) 3.9, Absolute Lymphs (auto) 0.93, Nucleated RBC % 0 01/01/19 07:15: Sodium 143, Potassium 3.8, Chloride 109 H, Carbon Dioxide 26.0, Anion Gap 8, BUN 27 H, Creatinine 1.10, Estim Creat Clear Calc 50.95, Est GFR (MDRD) Af Amer 83, Est GFR (MDRD) Non-Af 68, BUN/Creatinine Ratio 24.5 H, Glucose 100, Calcium 8.9, Troponin I < 0.015 01/01/19 07:15: Triglycerides 89, Cholesterol 115, LDL Cholesterol 51, VLDL Cholesterol 18, HDL Cholesterol 46, TSH 1.91 Current Medications Acetaminophen (Tylenol) 650 mg PO Q6H PRN PRN PRN Reason: Pain Score 1-3/Temp > 100.7 F Acetylcysteine (Mucomyst) 1,200 mg PO BID [facility] Stop: 01/02/19 22:01 Aspirin (Aspirin, Baby) 81 mg PO DAILY@0800 [facility] Atorvastatin Calcium (Lipitor) 80 mg PO QHS [facility] Citalopram Hydrobromide (Celexa) 10 mg PO DAILY [facility] Enoxaparin Sodium (Lovenox) 40 mg SC DAILY@1000 [facility] Finasteride (Proscar) 5 mg PO DAILY [facility] Sodium Chloride () 1,000 mls @ 75 mls/hr IV .[id number] [facility] Stop: 01/01/19 22:36 Metoprolol Tartrate (Lopressor (Beta Sabina)) 12.5 mg PO BID [facility] Ondansetron HCl (Zofran) 4 mg IV Q8H PRN PRN PRN Reason: NAUSEA/VOMITING Sodium Chloride () 10 - 40 ml IV UD PRN PRN Reason: SALINE FLUSH Last Admin: 01/01/19 10:54 Dose: 10 ml Documented by: Tamsulosin HCl (Flomax) 0.4 mg PO DAILY@1700 [facility] Assessment/Plan All Active Problems (Last Updated 01/01/19 @ 10:16 by Radha Esquivel MD) Dizziness (Acute) TIA (transient ischemic attack) (Acute) The patient is a 83 year old M with PMH HTN, HLD, thoracic aortic aneurysm, BPH admitted with acute onset dizziness and possible left hand weakness. Per patient this morning 01/01/2019 he came in for a nuclear stress test, he was given injection in the arm and immediately after that he developed acute dizziness, was very wobbly while walking, he felt his left arm was incoordinated and possibly weak per patient, did not have any leg weakness, speech disturbances or visual disturbances at that time, the symptoms lasted for about 10-15 minutes per patient, per ED documentation his NIHSS stroke scale was 0 on admission to the ED. at present patient feels he is back to his baseline self, denies any headache, dizziness, speech problems, visual disturbances, sensory loss or focal motor weakness. Per patient he does take aspirin every day at baseline but had stopped it for the nuclear stress testing since yesterday. Per patient he lives with his , denies any falls, does not use any cane or walker to ambulate, does drive and does not need any assistance for his ADLs. CT head done on admission reported nothing acute. Impression Possible TIA vs Reaction to medication given for nuclear stress testing R/O Stroke Plan -Aspirin 81 mg p.o. once daily. Bleeding risk discussed in detail with the patient. ABCD 2 score of 3. NIHSS 0 -Lipitor 40 mg PO q hs -MRI brain, MRA head/neck -HbA1c pending, LDL 51 -TTE-pending -30-day event recorder on discharge -Cardiology consult -Stroke risk factors discussed and stroke education provided -Permissive HTN for 24 hrs -terminal superintendent goal BP < 130/80 mmHg, goal LDL < 70 and goal Hba1c < 7% -PT/OT/ST -GI/DVT prophylaxis -Fall precautions -Further medical management per hospitalist team -Please call with questions if any -Follow-up with neurology in 4 weeks -Thank you for allowing us to participate in patient's care and management This note has been generated using [employer] dictation software. It may contain incorrect words, spellings and punctuation that were not noted in the review of the note prior to signing Code Visit Inpatient E&M: 73092 Init Hosp L3
[2019-01-01] MEDS: 0.9% Normal Saline 1,000 ML 75 ML IV (12:36)
[2019-01-01] MEDS: Enoxaparin 40 MG/0.4 ML Syringe SC (12:42)
[2019-01-01] MEDS: Aspirin 81 MG TAB.CHEW PO (12:42)
[2019-01-01 12:44] LABS: Hemoglobin A1c 5.6 % (4.2-6.3)
[2019-01-01] MEDS: Acetylcysteine (Mucomyst Oral) 20% SOLN 1200 MG PO ×2 (12:50→21:51)
--- NOTE | 2019-01-01 15:36 | PCM.CONS.C ---
Problem List (1) Dizziness Status: Acute Reason for Consult Date of Consultation: 01/01/19 History of Present Illness: MSAOOD SIMON, is a 83 year old with history of CAD-not requiring PCI or CABG, aortic valve insufficiency, thoracic aortic aneurysm-ascending, hyperlipidemia, and hypertension. He had complained of mild chest discomfort which he had seen Dr. Almanzar who was this primary sustainability purchasing agent. Stress test was ordered. When the patient received technetium he started having dizziness and also he felt his left arm was incoordinated and possibly weak. He did not have any leg weakness, speech disturbances or visual disturbances at that time, the symptoms lasted for about 10-15 minutes per patient, per ED documentation his NIHSS stroke scale was 0 on admission to the ED. at present patient feels he is back to his baseline self, denies any headache, dizziness, speech problems, visual disturbances, sensory loss or focal motor weakness. Per patient he does take aspirin every day at baseline but had stopped it for the nuclear stress testing since yesterday. Per patient he lives with his , denies any falls, does not use any cane or walker to ambulate, does drive and does not need any assistance for his ADLs. CT head done on admission reported nothing acute. Review of systems: All systems reviewed. All else is negative except that in the HPI. Past Medical History Allergies/Adverse Reactions: Allergies Penicillins Allergy (Verified 01/01/19 07:00) Unknown Home Medications: Ambulatory Orders Medication Instructions Recorded Aspirin [Aspirin, Baby] 81 mg PO DAILY@0800 04/14/16 Calcium Carb,Gluc/Mag Ox,Gluc 1 ea PO BID 04/14/16 [Calcium Magnesium Caplet] Citalopram [Celexa] 10 mg PO DAILY 04/14/16 Dutasteride [Avodart] 0.5 mg PO DAILY 04/14/16 Multivit-Min/FA/Lycopen/Lutein 1 ea PO DAILY 04/14/16 [Centrum Silver Men Tablet] [place]-3 Fatty Acids/Fish Oil 1 ea PO DAILY 04/14/16 [[place] 3 1,000 mg Softgel] Pravastatin [Pravachol] 40 mg PO DAILY 04/14/16 tamsulosin 0.4 mg capsule 0.4 mg PO QDAY 01/22/17 coenzyme Q10 30 mg capsule 30 mg PO QDAY 01/24/17 metoprolol tartrate 25 mg tablet 12.5 mg PO BID tab 01/24/17 vit 2 tab PO DAILY 01/24/17 G-fzvnjgv-btcovbhye-[id number] 500 mg-50 mg-25 mg-40 mg tablet vit C,E,zinc,copper-lptuo4v 250 1 cap PO DAILY 11/04/17 mg-lutein 5 mg-zeaxanthin 1 mg capsule Past Medical History (Chronic Problems): Chronic Problems (Last Updated 01/01/19 @ 10:16 by Radha Esquivel MD) Pure hypercholesterolemia (Chronic) Essential hypertension (Chronic) Fatigue (Chronic) SOB (shortness of breath) (Chronic) Thoracic aortic aneurysm without rupture (Chronic) Nonrheumatic aortic valve insufficiency (Chronic) Surgical History: herniorrhaphy Psychiatric History: No pertinent psych hx - *Family History Maternal Family History: Family History (Last Reviewed 12/17/18 @ 15:03 by Xochitl Duarte) Father CAD (coronary artery disease) Mother CAD (coronary artery disease) History Items: No pertinent history Paternal Family History: Family History (Last Reviewed 12/17/18 @ 15:03 by Xochitl Duarte) Father CAD (coronary artery disease) Mother CAD (coronary artery disease) History Items: No pertinent history Lives: Spouse/ Significant Other Smoking Status: Never smoker Alcohol: None Drugs: None Objective: Vital Signs Temp Pulse Resp BP Pulse Ox 97.7 F L 61 17 131/80 H 96 01/01/19 13:22 01/01/19 13:22 01/01/19 13:22 01/01/19 13:22 01/01/19 13:32 Oxygen Delivery Method Room Air Weight: 181 lb 10.574 oz Body Mass Index (BMI) 28.4 Finger Stick Blood Glucose 104 Intake and Output for Last 24 Hours 12/30/18 12/31/18 01/01/19 23:59 23:59 23:59 Intake Total 615 / 615 Balance 615 / 615 General: Awake, Alert, Oriented x 3 HEENT: Atraumatic Oral: Moist Mucosa Neck: Supple Cardiovascular: Regular Rhythm Abdomen: Soft Extremities: No edema Musculoskeletal: No Erythema Skin: No Rashes Psych/Mental Status: Appropriate 01/01/19 07:15: WBC 5.8, RBC 4.81, Hgb 14.5, Hct 43.4, MCV 90.2, MCH 30.1, MCHC 33.4, Plt Count 191, MPV 9.8, Immature Gran % (Auto) 0.500, Neut % (Auto) 67.2, Lymph % (Auto) 16.0 L, Delta % (Auto) 10.0, Eos % (Auto) 5.3 H, Baso % (Auto) 1.0, Absolute Neuts (auto) 3.9, Nucleated RBC % 0 01/01/19 07:15: Sodium 143, Potassium 3.8, Chloride 109 H, Carbon Dioxide 26.0, Anion Gap 8, BUN 27 H, Creatinine 1.10, Est GFR (MDRD) Af Amer 83, Est GFR (MDRD) Non-Af 68, BUN/Creatinine Ratio 24.5 H, Glucose 100, Calcium 8.9, Troponin I < 0.015 01/01/19 07:15: Triglycerides 89, Cholesterol 115, LDL Cholesterol 51, VLDL Cholesterol 18, HDL Cholesterol 46 01/01/19 07:15: Hemoglobin A1c 5.6 Rhythm: EKG: ECHO: Stress Test: Cardiac Cath: PCI: CT Surgery: Holter monitor: EPS: PPM: CXR: Chest CT Scan: Assessment/Plan 1. Start as a possible side effect of technetium injection. His symptoms could have been related to the technetium injection however he is also getting work-up for TIA which is very reasonable. Patient's family member at bedside states that patient has had a stress test with technetium in the past and hasn't had a similar reaction. 2. Thoracic aortic aneurysm: Stable by CT done at [facility]. 3. Aortic insufficiency: 1-2+ by echo in 06/06
--- NOTE | 2019-01-01 16:25 | CDU_ITS ---
Reason For Study: TIA Rt. Velocities/BP Lt. Velocities/BP Prox CCA 174 cm/sec. Prox CCA 61.9/8 cm/sec. Mid CCA 59.6/7.7 cm/sec. Mid CCA 59.7/6.9 cm/sec. Dist CCA 52/6.5 cm/sec. Dist CCA 52/8 cm/sec. Prox ICA 132.3/27 cm/sec. Prox ICA 68.4/13.5 cm/sec. Mid ICA 141.1/27 cm/sec. Mid ICA 71.7/11.3 cm/sec. Dist ICA 85.8/10.3 cm/sec. Dist ICA 98.1/20.1 cm/sec. Rt. ICA/CCA = 2.4. Lt. ICA/CCA = 1.6. Prox ECA 79 cm/sec. Prox ECA 88.3 cm/sec. Rt. Vert. 34.4 cm/sec. Lt. Vert. 63.1/11.6 cm/sec. Right Extracranial There is homogeneous, smooth atherosclerotic plaque noted in the right common carotid artery. There is heterogeneous, irregular atherosclerotic plaque noted in the right internal carotid artery. There is intimal thickening but no significant atherosclerotic plaque noted in the right external carotid artery. Antegrade flow is noted in the right vertebral artery. Left Extracranial There is homogeneous, smooth atherosclerotic plaque noted in the left common carotid artery. There is heterogeneous, irregular atherosclerotic plaque noted in the left internal carotid artery. There is no significant atherosclerotic plaque noted in the left external carotid artery. Antegrade flow is noted in the left vertebral artery. Procedure Carotid Duplex [id number]. Exam performed portable in patient room. Interpretation Summary Moderate calcific plaque with shadowing white proximal internal carotid with 50-69% stenosis. <50% stenosis right external carotid Mild amount of irregular calcific plaque in the proximal left internal carotid with <50% stenosis <50% stenosis left external carotid Patent and antegrade vertebrals bilaterally Ordering Physician: Radha Esquivel Referring Physician: Keisha Briscoe M.D. Performed By: Anastacia Lazo RVT
[2019-01-01] MEDS: Tamsulosin HCl 0.4 MG Capsule PO (18:14)
[2019-01-01] MEDS: Atorvastatin Calcium 80 MG Tablet PO (21:51)
[2019-01-01] MEDS: Metoprolol Tartrate 25 MG Tablet 12.5 MG PO (22:04)
[2019-01-01] MEDS: MELATONIN 10 MG TABLET 5 MG PO (23:56)
[2019-01-02] VITALS (8 sets, daily range): BP systolic 125–129; BP diastolic 61–69; PULSE 45–62; RESP 16–17; TEMP 36.3–36.6; O2SAT 94–98
[2019-01-02 06:17] LABS: Anion Gap 7 (5-15); BUN 20 mg/dL (7-18); BUN/Creat Ratio 21.2 RATIO (10-20); Calcium,Total 8.2 mg/dL (8.5-10.1); Chloride 110 mmol/L (98-107); Creatinine, Serum 0.94 mg/dL (0.70-1.30); EST Glomerular Filtration Rate 81 mL/min (>60); Est Glom Filt Rate - Afr Amer 98 mL/min (>60); Estimated Creatinine Clearance 57.62 ml/min; Glucose 101 mg/dL (74-106); Potassium 3.9 mmol/L (3.5-5.1); Sodium Level 142 mmol/L (136-145)
--- NOTE | 2019-01-02 08:16 | PCM.PN.CARD ---
Subjectve: The patient is awake and alert. He denies any ongoing chest discomfort, difficulty breathing, or focal motor or sensory deficit at this time. Objective: Vital Signs Temp Pulse Resp BP Pulse Ox 97.8 F 59 L 17 129/61 H 96 01/02/19 03:46 01/02/19 07:02 01/02/19 03:46 01/02/19 03:46 01/02/19 03:46 Oxygen Delivery Method Room Air Weight: 181 lb 10.574 oz Body Mass Index (BMI) 28.4 Finger Stick Blood Glucose 104 Intake and Output for Last 24 Hours 12/31/18 01/01/19 01/02/19 23:59 23:59 23:59 Intake Total 1642 / 1642 1000 / 1000 Output Total 0 / 0 Balance 1642 / 1642 1000 / 1000 General: Awake, Alert, Oriented x 3, Cooperative, No Acute Distress HEENT: Atraumatic, Normocephalic, PERRL, EOMI, Sclera Non Icteric Oral: Moist Mucosa Neck: Supple, Good ROM Lungs: Clear to auscultation Cardiovascular: Regular Rhythm, Normal S1, Normal S2 Murmur Murmur: Grade 1/6, Soft, Mid Diastolic, LLSB Vascular: No Carotid Bruits Abdomen: Bowel Sounds Present, Soft, Non Tender Extremities: No edema Neurological: No Focal Motor or Sensory Deficit Psych/Mental Status: Appropriate 01/01/19 07:15: Triglycerides 89, Cholesterol 115, LDL Cholesterol 51, VLDL Cholesterol 18, HDL Cholesterol 46 01/01/19 07:15: Hemoglobin A1c 5.6 01/02/19 05:35: Sodium 142, Potassium 3.9, Chloride 110 H, Carbon Dioxide 25.0, Anion Gap 7, BUN 20 H, Creatinine 0.94, Est GFR (MDRD) Af Amer 98, Est GFR (MDRD) Non-Af 81, BUN/Creatinine Ratio 21.2 H, Glucose 101, Calcium 8.2 L Rhythm: Sinus rhythm Medical Necessity - Tobacco Use Smoking Status: Never smoker Assessment/Plan 1. TIA The patient demonstrated, following an injection of Cardiolite nuclear imaging agent yesterday, what was reported as symptoms and physical examination findings compatible with a focal neurologic deficit. The patient was not reported as becoming bradycardic or hypotensive. The etiology of the event raise concerns about a potential reaction to the Cardiolite nuclear imaging agent. It appears to been reported with a variety of potential side effects including alteration in taste, IV site related irritation, potentially bradycardia/hypotension, lightheadedness/dizziness, abdominal discomfort with nausea and emesis, however, based upon review of information available thus far and discussion with the manager nuclear, there is been no report of side effects resulting in focal neurologic deficits such as motor deficits, etc. Thus his clinical course raise concerns of another etiology explaining and/or contributing to event such as an underlying neurologic event. He has undergone evaluation with no definitive findings of an acute OUTBOUND TELEMARKETER event. However his evaluation has revealed concerns of right carotid artery stenosis being potentially greater than 70%. He is now pending further evaluation with a carotid artery duplex study. He may need formal peripheral vascular surgery consultation. 2. CAD The patient has a history of CAD. In the past it is been thought to be angiographically significant. He has been treated medically. Based upon his recent concerns of some chest discomfort he was to undergo further evaluation with the stress nuclear imaging study, which he has undergone in the past, to further evaluate for any obvious changes that would suggest a change in his underlying cardiovascular status warranting further evaluation care. This is now on hold pending his neurologic evaluation. In the future, he may need continued noninvasive and/or invasive evaluation. Consideration will have to be given at that time as to how to proceed, from a noninvasive standpoint, if there is any concerns with respect to utilizing a nuclear imaging agent. 3. Thoracic aortic aneurysm He has been evaluated extensively locally and at [facility] and at [facility]. He has chosen to follow with [facility] for this issue. He has not been recommended for surgical intervention as of yet. 4. Aortic valve insufficiency He will continue to be followed by history, exam, and echocardiogram as deemed appropriate. 5. Hyperlipidemia He will continue medical management as deemed appropriate. 6. Hypertension He will continue medical therapy with adjustment as needed. Comment: The patient's case was discussed and reviewed with the patient, his spouse, his daughter, and Dr. Esquivel. This note was generated using a voice recognition system and there may be incorrect words, spelling or punctuation that were not noted when reviewing the office note prior to saving.
[2019-01-02] MEDS: Aspirin 81 MG TAB.CHEW PO (09:12)
[2019-01-02] MEDS: Finasteride 5 MG Tablet PO (09:12)
[2019-01-02] MEDS: Enoxaparin 40 MG/0.4 ML Syringe SC (09:12)
[2019-01-02] MEDS: Metoprolol Tartrate 25 MG Tablet 12.5 MG PO (09:12)
[2019-01-02] MEDS: Citalopram 10 MG Tablet PO (09:12)
[2019-01-02] MEDS: Acetylcysteine (Mucomyst Oral) 20% SOLN 1200 MG PO (09:16)
--- NOTE | 2019-01-02 10:03 | CASEMGMT ---
BRITTANY CISSE NOTE: To room to talk with pt. Introduced self and role of BRITTANY CISSE. @ bedside. Reviewed GALVEZ form and pt denies having any questions. Form signed by pt, copy made and placed on chart, and original given to pt. Anastasiya THURMAN RN, CM
--- NOTE | 2019-01-02 10:15 | CT_ITS ---
STUDY: CTA HEAD AND NECK WITH CONTRAST REASON FOR EXAM: Male, 83 years old. DIZZY. RADIATION DOSAGE (If Supplied By Facility): CTDIvol = ( 29.75 ) mGy, DLP = ( 1551.72 ) mGycm TECHNIQUE: CT angiography was performed with a multi-detector CT scanner. Data acquisition was obtained from the skull base through the vertex following intravenous administration of IV Isovue 370 100. MIP images were reconstructed from the axial data set. Post-processing of the angiographic images was performed, with multiplanar reformation and 3D reconstruction. Individualized dose optimization techniques were used for this CT. COMPARISON: No relevant priors. FINDINGS: Normal bilateral petrous carotid arteries. There is calcified plaque formation of the right cavernous carotid artery, without a cross-sectional luminal stenosis. There is calcified plaque formation of the left cavernous carotid artery, without a cross-sectional luminal stenosis. Normal right A1 segments of the anterior cerebral artery. Normal left A1 segments of the anterior cerebral artery. Normal intact anterior communicating artery (ACOM). Normal bilateral A2 segments of the anterior cerebral arteries. Normal right M1 and M2 segments of the middle cerebral arteries, with a normal M1 bifurcation. Normal left M1 and M2 segments of the middle cerebral arteries, with a normal M1 bifurcation. Small right posterior communicating artery (PCOM). Small left posterior communicating artery (PCOM). Normal basilar artery with a normal basilar bifurcation. The visualized bilateral superior cerebellar (SCA) arteries are normal. Normal bilateral P1, P2 and visualized P3 segments of the posterior cerebral arteries. AORTIC ARCH: There is mild atherosclerotic plaque of the visualized aortic arch. RIGHT CAROTID ARTERIES: Normal right common carotid artery (CCA). There is mild atherosclerotic plaque formation with minimal narrowing of the right carotid bulb. There is extensive atherosclerotic plaque formation of the proximal right internal carotid artery (axial image #127 series 3) with an estimated stenosis of greater than 70%. Normal visualized cervical portion of the right internal carotid artery. Normal origin of the right external carotid artery (ECA). LEFT CAROTID ARTERIES: Normal left common carotid artery (CCA). There is mild atherosclerotic plaque formation with minimal narrowing of the left carotid bulb. There is mild atherosclerotic plaque formation of the origin of the left internal carotid artery with less than 50% cross sectional diameter stenosis. Normal visualized cervical portion of the left internal carotid artery. Normal origin of the left external carotid artery (ECA). VERTEBRAL ARTERIES: Normal bilateral vertebral arteries. CT/CTA Head AND Neck W/ Contrast IMPRESSION: Greater than 70% stenosis of the right ICA. Less than 50% stenosis of the left ICA. Electronically Signed: Kee Lira MD at 12:03 EST Tel , Service support ,
--- NOTE | 2019-01-02 12:32 | PCM.DC ---
- Discharge Diagnoses Current Active Problems: Current Active and Chronic Problems (Last Updated 01/01/19 @ 10:16 by Radha Esquivel MD) Dizziness (Acute) TIA (transient ischemic attack) (Acute) You will use the following diet at home:: Cardiac Your food should be the consistency of: Regular Discharge Activity: Return to Normal Activity Weight Bearing Status: Weight bearing as tolerated Call your doctor if you observe: Fever of 101 or Higher, Numbness or Tingling, Shortness of breath, Dizziness, Fainting spells, Chest pain, Increased palpitations (irregular heartbeat), Uncontrolled pain Allergies/Adverse Reactions: Allergies Penicillins Allergy (Verified 01/01/19 07:00) Unknown Medications to take at Discharge Aspirin [Aspirin, Baby] 81 mg PO DAILY@0800 04/14/16 Calcium Carb,Gluc/Mag Ox,Gluc [Calcium Magnesium Caplet] 1 ea PO BID 04/14/16 Citalopram [Celexa] 10 mg PO DAILY 04/14/16 Dutasteride [Avodart] 0.5 mg PO DAILY 04/14/16 Multivit-Min/FA/Lycopen/Lutein [Centrum Silver Men Tablet] 1 ea PO DAILY 04/14/16 [place]-3 Fatty Acids/Fish Oil [[place] 3 1,000 mg Softgel] 1 ea PO DAILY 04/14/16 Pravastatin [Pravachol] 40 mg PO DAILY 04/14/16 tamsulosin 0.4 mg capsule 0.4 mg PO QDAY 01/22/17 coenzyme Q10 30 mg capsule 30 mg PO QDAY 01/24/17 metoprolol tartrate 25 mg tablet 12.5 mg PO BID tab 01/24/17 vit B-itdqcrt-yzziukugk-rutin-[id number] 500 mg-50 mg-25 mg-40 mg tablet 2 tab PO DAILY 01/24/17 vit C,E,zinc,copper-ctnrx8r 250 mg-lutein 5 mg-zeaxanthin 1 mg capsule 1 cap PO DAILY 11/04/17 Clopidogrel Bisulfate [Plavix] 75 mg PO DAILY #21 tab 01/02/19 The following prescriptions were given: Clopidogrel Bisulfate [Plavix] 75 mg PO DAILY #21 tab Transmission Status: Pending to [id number] Primary Care Physician: Keisha Briscoe MD [Primary Care Provider] - Please follow up with your Primary Care Physician in: 1-2 week. Test Results: Test results from this visit will be discussed in further detail at your follow-up appointment, if applicable. Please Follow Up With: Abisai Powell MD When: as scheduled. Please Follow Up With: Nusrat Krishnan MD When: 4 weeks.
--- NOTE | 2019-01-02 12:54 | PN.NEURO_ITS ---
Patient Problems: Active and Suspected Problems (Last Updated 01/01/19 @ 10:16 by Radha Esquivel MD) Dizziness (Acute) TIA (transient ischemic attack) (Acute) Subjective: No issues overnight. Care discussed with the hospitalist staff. MRI brain negative for acute stroke. MRA head/neck reported to show greater than 70% sten osis in the right ICA, CTA head/neck reported to show greater than 70% stenosis in the right ICA. Per patient today he tells me that he had episodes of probable left hand weakness 1 to 2 weeks ago, where he could not close his fingers and the weakness lasted for few minutes before improving but patient did not seek any medical advice for the same. - Physical Exam Vitals/I&O's: Vital Signs Temp Pulse Resp BP Pulse Ox 97.4 F L 61 16 129/68 H 96 01/02/19 09:10 01/02/19 09:12 01/02/19 09:10 01/02/19 09:10 01/02/19 09:10 Oxygen Delivery Method Room Air Weight: 82.4 kg Body Mass Index (BMI) 28.4 Finger Stick Blood Glucose 104 Intake and Output for Last 24 Hours 12/31/18 01/01/19 01/02/19 23:59 23:59 23:59 Intake Total 1642 / 1642 1500 / 1500 Output Total 0 / 0 Balance 1642 / 1642 1500 / 1500 General: Alert HEENT: Normocephalic Neck: Supple Lungs: Normal air movement Cardiovascular: Normal S1, Normal S2 Abdomen: Bowel Sounds Present Extremities: No cyanosis Neurological: - - Conscious, alert, AOA x3, CN II to XII grossly intact, power 5/5 both upper and lower extremities, plantars B/L flexor, no pronator drift, no sensory loss, no cerebellar signs, gait deferred, reflexes + B/L B/S/T/K/A, No NR, fundus not visualized, NIHSS 0, mRS 0 at baseline Psych/Mental Status: Normal Affect Laboratory Results 01/02/19 05:35: Sodium 142, Potassium 3.9, Chloride 110 H, Carbon Dioxide 25.0, Anion Gap 7, BUN 20 H, Creatinine 0.94, Estim Creat Clear Calc 57.62, Est GFR (MDRD) Af Amer 98, Est GFR (MDRD) Non-Af 81, BUN/Creatinine Ratio 21.2 H, Glucose 101, Calcium 8.2 L Current Medications Acetaminophen (Tylenol) 650 mg PO Q6H PRN PRN PRN Reason: Pain Score 1-3/Temp > 100.7 F Acetylcysteine (Mucomyst) 1,200 mg PO BID [facility] Stop: 01/02/19 22:01 Last Admin: 01/02/19 09:16 Dose: 1,200 mg Documented by: Aspirin (Aspirin, Baby) 81 mg PO DAILY@0800 [facility] Last Admin: 01/02/19 09:12 Dose: 81 mg Documented by: Atorvastatin Calcium (Lipitor) 80 mg PO QHS [facility] Last Admin: 01/01/19 21:51 Dose: 80 mg Documented by: Citalopram Hydrobromide (Celexa) 10 mg PO DAILY [facility] Last Admin: 01/02/19 09:12 Dose: 10 mg Documented by: Enoxaparin Sodium (Lovenox) 40 mg SC DAILY@1000 [facility] Last Admin: 01/02/19 09:12 Dose: 40 mg Documented by: Finasteride (Proscar) 5 mg PO DAILY [facility] Last Admin: 01/02/19 09:12 Dose: 5 mg Documented by: Melatonin (Melatonin) 5 mg PO QHS PRN PRN Reason: SLEEP Last Admin: 01/01/19 23:56 Dose: 5 mg Documented by: Metoprolol Tartrate (Lopressor (Beta Sabina)) 12.5 mg PO BID [facility] Last Admin: 01/02/19 09:12 Dose: 12.5 mg Documented by: Ondansetron HCl (Zofran) 4 mg IV Q8H PRN PRN PRN Reason: NAUSEA/VOMITING Sodium Chloride () 10 - 40 ml IV UD PRN PRN Reason: SALINE FLUSH Last Admin: 01/01/19 10:54 Dose: 10 ml Documented by: Tamsulosin HCl (Flomax) 0.4 mg PO DAILY@1700 [facility] Last Admin: 01/01/19 18:14 Dose: 0.4 mg Documented by: STROKE Vital Signs/Narrative: Vital Signs Temp Pulse Resp BP Pulse Ox 01/02/19 09:12 61 01/02/19 09:10 97.4 F L 61 16 129/68 H 96 Medical Necessity - Tobacco Use Smoking Status: Never smoker Assessment/Plan All Active Problems (Last Updated 01/01/19 @ 10:16 by Radha Esquivel MD) Dizziness (Acute) TIA (transient ischemic attack) (Acute) The patient is a 83 year old M with PMH HTN, HLD, thoracic aortic aneurysm, BPH admitted with acute onset dizziness and possible left hand weakness. Per patient this morning 01/01/2019 he came in for a nuclear stress test, he was given injection in the arm and immediately after that he developed acute dizziness, was very wobbly while walking, he felt his left arm was incoordinated and possibly weak per patient, did not have any leg weakness, speech disturbances or visual disturbances at that time, the symptoms lasted for about 10-15 minutes per patient, per ED documentation his NIHSS stroke scale was 0 on admission to the ED. at present patient feels he is back to his baseline self, denies any headache, dizziness, speech problems, visual disturbances, sensory loss or focal motor weakness. Per patient he does take aspirin every day at baseline but had stopped it for the nuclear stress testing since yesterday. Per patient he lives with his , denies any falls, does not use any cane or walker to ambulate, does drive and does not need any assistance for his ADLs. CT head done on admission reported nothing acute. Impression Probable TIA (as patient had episodes of left hand weakness about 1-2 weakness ago) Right ICA > 70% stenosis Plan -Aspirin 81 mg p.o. once daily. Plavix 75 mg PO once daily. Dual AP for 3 weeks then switch to single AP with ASA. Bleeding risk discussed in detail with the patient. -Lipitor 40 mg PO q hs -MRI brain, MRA head/neck-reviewed -CTA head/neck reviewed -HbA1c 5.6, LDL 51 -TTE-pending -30-day event recorder on discharge -Vascular Surgery consult [facility] to evaluate for right CEA -Stroke risk factors discussed and stroke education provided -Avoid hypotension -skilled nursing goal BP < 130/80 mmHg, goal LDL < 70 and goal Hba1c < 7% -PT/OT/ST -GI/DVT prophylaxis -Fall precautions -Further medical management per hospitalist team -Please call with questions if any -Follow-up with neurology in 4 weeks -Thank you for allowing us to participate in patient's care and management This note has been generated using edoation software. It may contain incorrect words, spellings and punctuation that were not noted in the review of the note prior to signing
--- NOTE | 2019-01-02 13:52 | DS.PCM_ITS ---
Discharge Date and Diagnosis Date of Admission: 01/01/19 Date of Discharge: 01/02/19 - Primary Discharge Diagnosis #1 probable transient ischemic attack. #2 Right internal carotid artery stenosis more than 70%. - Secondary Discharge Diagnosis Chronic Problems (Last Updated 01/01/19 @ 10:16 by Radha Esquivel MD) Pure hypercholesterolemia (Chronic) Essential hypertension (Chronic) Fatigue (Chronic) SOB (shortness of breath) (Chronic) Thoracic aortic aneurysm without rupture (Chronic) Nonrheumatic aortic valve insufficiency (Chronic) Hospital Course and Treatment Imaging Results: 01/02/19 10:15 CTA Head AND Neck W/ Contrast [CT] Urgent Clinical Impression(s) from Imaging Studies Brain CT 01/01/19 07:11 IMPRESSION: Chronic involutional changes of the brain. No demonstrated acute intracranial process. Electronically Signed: Philip Hooper MD at 8:01 EST , Service support , Chest X-Ray 01/01/19 07:15 IMPRESSION: Degenerative changes, as described above. No demonstrated acute cardiopulmonary process. Electronically Signed: Juan Jose Jorgensen, at 7:44 EST Tel , Service support , Brain MRI 01/01/19 09:17 IMPRESSION: No acute intracranial abnormality. Minimal chronic microvascular ischemic changes. Electronically Signed: Kee Lira MD at 14:21 EST Tel , Service support , Head MRA 01/01/19 09:17 IMPRESSION: No occlusion or significant stenosis. Electronically Signed: Kee Lira MD at 14:23 EST Tel , Service support , Neck MRA 01/01/19 09:17 IMPRESSION: Greater than 70% stenosis of the right ICA. Further evaluation with CTA is recommended. Electronically Signed: Kee Lira MD at 14:29 EST Tel , Service support , Head/Neck CTA 01/02/19 10:15 IMPRESSION: Greater than 70% stenosis of the right ICA. Less than 50% stenosis of the left ICA. Electronically Signed: Kee Lira MD at 12:03 EST Tel , Service support , Dr. Negro, neurology. Operations: None Procedures: 2-D Echocardiogram, EKG Summary of Care Provided: Patient seen and examined on day of discharge and appeared to be stable to be discharged home. Symptoms resolved, no more left arm weakness. He has been asymptomatic. His vital signs are stable. The patient is a 83 year old M patient presented to the emergency room because of dizziness and left arm weakness after he received IV radionuclide for nuclear stress test done on the morning of the day of admission and he was admitted for probable TIA for evaluation. CT scan brain done in the ED and showed no acute infarct or hemorrhage. Upon arrival to ED, his NIH stroke scale was 0 and his symptoms resolved. His EKG revealed sinus bradycardia, first-degree AV block otherwise no acute changes or cardiac arrhythmias. MRI brain done and revealed no evidence of acute infarct or hemorrhage. MRA of the head showed no occlusion or significant stenosis. MRA of the neck revealed greater than 70% stenosis of the right ICA. Patient had 2D echocardiogram done on May, that revealed ejection fraction of 60%, trivial MR, trivial TR, mild to moderate aortic insufficiency, RVSP of 24. There was no indication to repeat the echocardiogram at this time. His routine blood work was unremarkable. Lipid profile revealed normal total cholesterol, normal LDL and HDL cholesterol. TSH was normal. Hemoglobin A1c was normal. CTA of the head and neck performed because of the right RCA stenosis and revealed greater than 70% stenosis of the right ICA and less than 50% stenosis of the left ICA. Carotid Doppler done and report was pending at the time of the discharge. Neurology consulted and recommended to start patient Plavix in addition to the aspirin and statin that he has been on. After discussion with neurology, patient needed to be evaluated by vascular surgeon for this right ICA stenosis. I discussed the case with Dr. Powell and I requested if he can see the patient this coming week as outpatient and he agreed. Initially, patient preferred to go to [facility] as outpatient to be seen by vascular surgeon. I informed the patient that he should see a vascular surgeon sooner than later which should be this coming week or by maximum the week after. I informed the patient that if he wants to go to [facility] as outpatient, he either has to go to his PCP for a referral to vascular surgery at [facility] or he can find that by himself. After discussion with the patient, he agreed to see Dr. Abisai Powell this coming week as outpatient for evaluation and recommendation. Patient discharged home in a stable medical condition, discharged on aspirin, pravastatin, Plavix, continued on his previous home medications without any changes, recommended follow-up with PCP in 1 to 2 weeks, follow-up with as scheduled. - Physical Exam Vitals/I&O's: Vital Signs Temp Pulse Resp BP Pulse Ox 97.6 F L 62 16 125/69 H 94 01/02/19 13:15 01/02/19 13:15 01/02/19 13:15 01/02/19 13:15 01/02/19 13:15 Oxygen Delivery Method Room Air Weight: 181 lb 10.574 oz Body Mass Index (BMI) 28.4 Finger Stick Blood Glucose 104 Intake and Output for Last 24 Hours 12/31/18 01/01/19 01/02/19 23:59 23:59 23:59 Intake Total 1642 / 1642 1500 / 1500 Output Total 0 / 0 Balance 1642 / 1642 1500 / 1500 General: Alert, Oriented x3, Cooperative, No apparent distress HEENT: Atraumatic, PERRLA, EOMI, Normocephalic Oral: Moist Mucosa, No Gingival or Mucosal Lesions/ Ulcerations Neck: Supple, No JVD, Negative Carotid Bruits, Trachea Midline, Thyroid Normal Size and Texture Lungs: Clear to auscultation, Normal air movement, No rhonchi, No wheeze, No rales Cardiovascular: Regular rate, Regular Rhythm, Normal S1, Normal S2, PMI Normal Abdomen: Bowel Sounds Present, Soft, Non Tender, Non-Distended, No Hepato- splenomegaly Extremities: No clubbing, No cyanosis, No edema Skin: No rashes, No breakdown Lymphatic: No Cervical, Supraclavicular, or Inguinal Adenopathy Neurological: Cranial nerves II-XII grossly intact, Neuro grossly intact Psych/Mental Status: Normal Affect, Appropriate Laboratory Results 01/02/19 05:35: Sodium 142, Potassium 3.9, Chloride 110 H, Carbon Dioxide 25.0, Anion Gap 7, BUN 20 H, Creatinine 0.94, Estim Creat Clear Calc 57.62, Est GFR (MDRD) Af Amer 98, Est GFR (MDRD) Non-Af 81, BUN/Creatinine Ratio 21.2 H, Glucose 101, Calcium 8.2 L Discharge Activity: Return to Normal Activity Weight Bearing Status: Weight bearing as tolerated Call your doctor if you observe: Fever of 101 or Higher, Numbness or Tingling, Shortness of breath, Dizziness, Fainting spells, Chest pain, Increased palpitations (irregular heartbeat), Uncontrolled pain Home Medications: Medications to take at Discharge Aspirin [Aspirin, Baby] 81 mg PO DAILY@0800 04/14/16 Calcium Carb,Gluc/Mag Ox,Gluc [Calcium Magnesium Caplet] 1 ea PO BID 04/14/16 Citalopram [Celexa] 10 mg PO DAILY 04/14/16 Dutasteride [Avodart] 0.5 mg PO DAILY 04/14/16 Multivit-Min/FA/Lycopen/Lutein [Centrum Silver Men Tablet] 1 ea PO DAILY 04/14/16 Buchanan-3 Fatty Acids/Fish Oil [Buchanan 3 1,000 mg Softgel] 1 ea PO DAILY 04/14/16 Pravastatin [Pravachol] 40 mg PO DAILY 04/14/16 tamsulosin 0.4 mg capsule 0.4 mg PO QDAY 01/22/17 coenzyme Q10 30 mg capsule 30 mg PO QDAY 01/24/17 metoprolol tartrate 25 mg tablet 12.5 mg PO BID tab 01/24/17 vit F-sqfsbjp-odljvwoke-rutin-mrpd316 500 mg-50 mg-25 mg-40 mg tablet 2 tab PO DAILY 01/24/17 vit C,E,zinc,copper-vzpyp4o 250 mg-lutein 5 mg-zeaxanthin 1 mg capsule 1 cap PO DAILY 11/04/17 Clopidogrel Bisulfate [Plavix] 75 mg PO DAILY #21 tab 11/15/19 Following Prescrptions Were Given to Patient: Clopidogrel Bisulfate [Plavix] 75 mg PO DAILY #21 tab Transmission Status: Received by [id number] Primary Care Physician: Keisha Briscoe MD [Primary Care Provider] - Please follow up with your Primary Care Physician in: 1-2 week. Please Follow Up With: Abisai Powell MD When: as scheduled. Please Follow Up With: Nursat Negro MD When: 4 weeks. Please Follow Up With: Keisha Briscoe MD Disposition: Home Minutes spent on discharge:: 28 Patient Condition:: Stable Medical Necessity - Tobacco Use Smoking Status: Never smoker Meaningful Use Info Meaningful Use Diagnoses (Choose all that apply): None applicable Code Visit OBSV E&M: 25558 Observation care discharge
== END 2019-01-02 12:33 | disposition home or self-care (01) ==
LOC: ED 08:31 → PCU 08:35
PROVIDERS: Psychiatry & Neurology Neurology; Admitting Provider Hospitalist; Emergency Provider Emergency Medicine; Family Provider Internal Medicine; PCP Internal Medicine; Visit Provider Hospitalist
DX: I65.21 Occlusion and stenosis of right carotid artery (principal); I10 Essential (primary) hypertension; Z23 Encounter for immunization; I25.10 Atherosclerotic heart disease of native coronary artery without angina pectoris; M19.90 Unspecified osteoarthritis, unspecified site; N40.0 Benign prostatic hyperplasia without lower urinary tract symptoms; E78.5 Hyperlipidemia, unspecified; I71.2 Thoracic aortic aneurysm, without rupture; Z79.899 Other long term (current) drug therapy; Z79.82 Long term (current) use of aspirin
CPT/HCPCS: 36415; 70450; 70496; 70498; 70544; 70549; 70551; 71045; 80048; 80061; 82962; 83036; 84443; 84484; 85025; 93005; 93880; 96361; 96372; 96374; 99218; 99285; A9575; J7030; Q9967; 90686; A4216; G0378

== ENCOUNTER → 2019-12-10 | Outpatient (CLI) | payer MEDICARE, SELFPAY ==
[2019-12-10 09:12] VITALS: BMI 26.1
--- NOTE | 2019-12-10 09:37 | CT_ITS ---
STUDY: CT PELVIS WITH CONTRAST REASON FOR EXAM: Male, 84 years old. RT GROIN PAIN, RECURRENT RIH, RT HYDROCELE. RADIATION DOSAGE (If Supplied By Facility): CTDIvol = ( 28.20 ) mGy, DLP = ( 1724.82 ) mGycm TECHNIQUE: Transaxial imaging of the pelvis was performed with oral contrast. Oral and amp; IV Gastrografin and amp; 100mL Isovue-300 was administered intravenously. Individualized dose optimization techniques were used for this CT. COMPARISON: None. FINDINGS: Normal urinary bladder. The prostate is enlarged measuring 6.7 cm x 4.4 cm. This causes indentation at the bladder base. Normal visualized small intestine. There are multiple colonic diverticula of the sigmoid colon consistent with chronic diverticulosis. There is no pelvic fluid. There is no pelvic lymphadenopathy or mass lesion. There is diffuse atherosclerotic calcification of the pelvic arteries. Normal abdominal wall. There are diffuse degenerative changes of the visualized lumbar spine. CT/Pelvis WITH IV Contrast IMPRESSION: Sigmoid diverticulitis. Prostatic enlargement with indentation of the bladder base. No evidence of a right inguinal hernia Electronically Signed: Jm Howe, at 12:41 EDT , Service support ,
[2019-12-10 12:21] LABS: CREATININE FINGERSTICK 0.8 mg/dL (0.70-1.30)
== END | disposition home or self-care (01) ==
PROVIDERS: PCP Internal Medicine; Referring Provider Surgery; Visit Provider Surgery
DX: R10.31 Right lower quadrant pain (principal)
CPT/HCPCS: 72193; Q9967

== ENCOUNTER → 2020-11-24 08:18 | Outpatient (CLI) | payer MEDICARE, SELFPAY ==
--- NOTE | 2020-11-24 08:21 | RAD_ITS ---
INDICATION: DYSPHAGIA EXAMINATION/TECHNIQUE: Barium pill was administered to the patient. Thick and thin oral contrast and effervescent granules were administered to the patient. Total Fluoroscopic Time: 2:20 minutes. Number of Fluoroscopic Images: 23 COMPARISON: None. FINDINGS: Slight delay in transit of the barium pill through the esophagus was notable in the mid esophagus and in the distal esophagus immediately above the gastroesophageal junction. Unremarkable oropharyngeal phase of swallowing. Unremarkable transit of the contrast bolus into the esophagus. The esophagus demonstrates unremarkable contours, no evidence of esophageal strictures or diverticula, no evidence of esophageal masses or external compression is seen. Irregular esophageal contractility visualized suggestion of presbyesophagus. There is a circumferential persistent narrowing visualized just above the gastroesophageal junction suggestive of a SCHATZKI ring. Small type I hiatus hernia is seen. No evidence of gastroesophageal reflux was seen. RAD/Esophagus Dual Contrast IMPRESSION: Irregular esophageal contractility. Circumferential persistent narrowing visualized just above the gastroesophageal junction suggestive of a SCHATZKI ring. Small type I hiatus hernia is seen. No evidence of gastroesophageal reflux was seen. Electronically Signed: Jr Ridley MD at 10:37 EDT Tel , Service support ,
== END ==
PROVIDERS: PCP Internal Medicine; Referring Provider Internal Medicine; Visit Provider Internal Medicine
DX: R13.10 Dysphagia, unspecified (principal)
CPT/HCPCS: 74221

== ENCOUNTER 2020-12-22 06:59 | Day surgery (SDC) | payer MEDICARE, SELFPAY ==
[2020-12-22 07:28] VITALS: BP 152/60; PULSE 59; RESP 18; TEMP 35.8; O2SAT 98; BMI 29.0
[2020-12-22] MEDS: Lactated Ringers 1,000 ML 100 ML IV (07:30)
--- NOTE | 2020-12-22 08:06 | PCM.HP.BLA ---
History and Physical Date of Admission: 12/22/20 [facility] [id number] [place] [address] Intake Visit Reasons: Dysphagia Chief Complaint: Neck and Upper Back Pain Allergies Penicillins Allergy (Verified 11/29/20 14:54) Unknown Medications aspirin 81 mg PO DAILY@0800 04/14/16 [History Confirmed 11/29/20] tdpzaeir-lgn-AX-lycopen-lutein 1 ea PO DAILY 04/14/16 [History Confirmed 11/29/20] tamsulosin 0.4 mg capsule 0.4 mg PO QDAY 01/22/17 [History Confirmed 11/29/20] cholecalciferol (vitamin D3) 10 mcg (400 unit) chewable tablet 10 mcg PO DAILY 03/11/20 [History Confirmed 11/29/20] lactobacillus combination no.9 4 billion cell capsule 4,000 mmu cells PO DAILY 03/11/20 [History Confirmed 11/29/20] melatonin 5 mg capsule 5 mg PO QHS PRN cap 03/11/20 [History Confirmed 11/29/20] metoprolol tartrate 25 mg tablet 12.5 mg PO BID tab 03/11/20 [History Confirmed 11/29/20] omega-3 fatty acids 1,000 mg capsule 1,000 mg PO DAILY 03/11/20 [History Confirmed 11/29/20] ascorbic acid (vitamin C) 1,000 mg tablet 1 g PO DAILY tab 09/26/20 [History Confirmed 11/29/20] coenzyme Q10 100 mg capsule 100 mg PO DAILY 09/26/20 [History Confirmed 11/29/20] magnesium oxide 400 mg PO DAILY 09/26/20 [History Confirmed 11/29/20] tizanidine 4 mg tablet 4 mg PO TID PRN tab 09/26/20 [History Confirmed 11/29/20] zinc gluconate 30 mg tablet 30 mg PO DAILY 09/26/20 [History Confirmed 11/29/20] [facility] Medical History (Updated 11/29/20 @ 17:[address] Ocasio Friend, DO) BPH (benign prostatic hyperplasia) Carotid stenosis, bilateral Dysphagia Essential hypertension Hypertension Nonrheumatic aortic valve insufficiency Osteoarthritis Pure hypercholesterolemia Right groin pain Thoracic aortic aneurysm without rupture TIA (transient ischemic attack) Surgical History H/O hemorrhoidectomy H/O hernia repair History of cataract extraction History of colonoscopy (~2016) History of right-sided carotid endarterectomy History of sinus surgery Family History Father CAD (coronary artery disease) Diabetes Mother CAD (coronary artery disease) CHF (congestive heart failure) Sister Hypertension Cancer leukemia Social History Smoking Status: Never smoker alcohol intake: never substance use type: does not use what type of physical activity do you participate in: walking frequency: daily duration: 30-45 minutes/day HPI HPI Chief Complaint: Neck and Upper Back Pain Details: MASOOD SIMON, is a 85 M who presents to the office today for He was referred to this office for evaluation of esophageal dysphagia. He has been having problems with esophageal dysphagia with mostly solids and occasional pills. Lower esophageal ring (Schatzki). Symptoms include difficulty swallowing and some choking and coughing with food and pills, nighttime cough noted. Esophageal dual contrast performed 11/24/2020 with the following findings: barium pill had slight delay of transit through the esophagus in the mid esophagus and in the distal esophagus immediately above the gastroesophageal junction. Irregular esophageal contractility with suggestion of presbyesophagus, suggestion of Schatzki ring and small type I hiatal hernia. Denies EGD history. ROS Eyes Eyes: Positive for irritation ENT ENT: Positive for hearing loss and hoarseness Resp Respiratory: Positive for cough Musc Musculoskeletal: Positive for Arthritis Endo Endocrine: Positive for increased thirst/drinking Brad/Lymp Hematologic/Lymphatic: Positive for easy bruising Exam Const General: cooperative and comfortable Nutritional Appearance: average body habitus and well nourished [facility] Head: normal to inspection Ears: hearing grossly normal bilaterally Nose: external nose normal Face and sinus: normal facial exam Mouth: oral mucosae normal Throat: posterior oropharynx normal Eyes General: appearance normal, both eyes and all related structures Neck Neck: normal visual inspection Chest Chest palpation & inspection: normal inspection of the chest and normal palpation of entire chest wall Resp Effort & Inspection: normal respiratory effort Auscultation: Bilateral: Clear to Auscultation Cardio Palpation: normal PMI Rate: regular rate Rhythm: regular rhythm GI Inspection: normal to inspection Auscultation: normal bowel sounds Percussion: normal to percussion Palpation: no hepatosplenomegaly Skin General: no rashes or lesions noted Neuro General: patient alert Extrem General: normal to inspection Psych Affect: normal affect Quality Reporting Tobacco Screening ([facility] 138) Smoking Status: Never smoker Assessment and Plan Assessment and Plan (1) Dysphagia: Status: Acute Plan - Dr. Ocasio Friend, DO: Patient will undergo upper endoscopy to evaluate his upper GI tract for Doherty's esophagus, esophageal stricture, esophageal ring. He also undergo esophageal dilation. I suspect he does have a hiatal hernia that is contributing to the symptoms even though he does not have GERD on daily basis. He will likely need to be on 40 mg of pantoprazole or omeprazole twice a day for 8 weeks and then can can be titrated all the way down.
--- NOTE | 2020-12-22 08:30 | EGD_PTH ---
PATIENT: MASOOD SIMON LOC: EN U#:[id number] AGE/SX: 85/M ROOM: RE12/22/[address]: Dr. Amarjit Arango DO : 1935 BED: DIS: 12/22/2020 SPEC #: [id number] RECD: 12/22/20 10:56 STATUS: EUGENIO REBrenda #: [id number] RODDY: 12/22/20 08:[address]: Amarjit Arango DEPT: SURGICAL PATHOLOGY RECD BY: Rae Ybarra ENTERED: 12/22/20 12:19 SP TYPE: EGD BIOPSY OT DR: Dr. Roz Morrison DO Tissues: Esophagus, NOS Procedures: Special Stain Group II Surgery Specimen Level IV Alcian Blue/PAS (control) HEADER OPERATION: EGD ([facility]) with dilation PRE-OP DIAGNOSIS: Dysphagia TISSUE SUBMITTED: Random esophagus biopsy MICROSCOPIC DIAGNOSIS Esophagus, random biopsy: Fragments of gastroesophageal mucosa with mild chronic inflammation. Intestinal metaplasia (goblet cell metaplasia) not identified. See comment. DASH:sarabjit 12/23/2020 COMMENT The specimen predominantly consists of squamous epithelium. Alcian blue/PAS stain with matched control is used in the evaluation of the specimen. Significant increased number of eosinophils consistent with eosinophilic esophagitis are not seen. MICROSCOPIC DESCRIPTION Slides are reviewed. GROSS DESCRIPTION Received in fixative is one container labeled with the patient's name and designated random esophagus biopsy. The specimen consists of multiple irregular fragments of light moreira soft tissue that in aggregate measure 1 x 0.8 x 0.1 cm. The specimen is totally submitted in one cassette. / DASH:sarabjit 12/22/20 TC:3 CPT: 77270, 35678
[2020-12-22 08:35] VITALS: BP 111/53; BP 152/60; PULSE 67; PULSE 71; RESP 16; TEMP 36.1; O2SAT 94
--- NOTE | 2020-12-22 08:35 | OP.EGD_ITS ---
Patient Name: Bogdan Cobb Procedure Date: 12/22/2020 8:05 AM Date of : 1935 Age: 85 Procedure: Upper GI endoscopy Indications: Suspected esophageal reflux Providers: Amarjit Arango DO Referring MD: Roz Morrison Medicines: See the Anesthesia note for documentation of the administered medications Patient Profile: This is an 85 year old male. Refer to note in patient chart for documentation of history and physical. Patient has symptoms of chronic dysphagia and dysphagia with solids. Complications: No immediate complications. Procedure: Pre-Anesthesia Assessment: - Prior to the procedure, a History and Physical was performed, and patient medications and allergies were reviewed. The patient is competent. The risks and benefits of the procedure and the sedation options and risks were discussed with the patient. All questions were answered and informed consent was obtained. Patient identification and proposed procedure were verified by the physician in the pre-procedure area. Mental Status Examination: alert and oriented. Airway Examination: normal oropharyngeal airway and neck mobility. Respiratory Examination: clear to auscultation. CV Examination: normal. Prophylactic Antibiotics: The patient does not require prophylactic antibiotics. Prior Anticoagulants: The patient has taken no previous anticoagulant or antiplatelet agents. ASA Grade Assessment: II - A patient with mild systemic disease. After reviewing the risks and benefits, the patient was deemed in satisfactory condition to undergo the procedure. The anesthesia plan was to use moderate sedation / analgesia (conscious sedation). Immediately prior to administration of medications, the patient was re-assessed for adequacy to receive sedatives. The heart rate, respiratory rate, oxygen saturations, blood pressure, adequacy of pulmonary ventilation, and response to care were monitored throughout the procedure. The physical status of the patient was re-assessed after the procedure. After obtaining informed consent, the endoscope was passed under direct vision. Throughout the procedure, the patient's blood pressure, pulse, and oxygen saturations were monitored continuously. The Endoscope was introduced through the mouth, and advanced to the second part of duodenum. The upper GI endoscopy was accomplished without difficulty. The patient tolerated the procedure well. Moderate Sedation: Moderate (conscious) sedation was administered by the endoscopy nurse and supervised by the endoscopist. The patient's oxygen saturation, heart rate, blood pressure and response to care were monitored. Total physician intraservice time was 15 minutes. Scope In: 8:15:25 AM Scope Out: 8:25:21 AM Total Procedure Duration Time 0 hours 9 minutes 56 seconds Findings: There were two 1 cm submucosal lesion seen in the proximal esophagus. A moderate Schatzki ring was found in the lower third of the esophagus. A guidewire was placed and the scope was withdrawn. Dilation was performed with a Savary dilator with no resistance at 60 Fr. Mucosal changes including ringed esophagus and feline appearance were found in the lower third of the esophagus. Esophageal findings were graded using the Eosinophilic Esophagitis Endoscopic Reference Score (EoE-EREFS) as: Rings Grade 2 Moderate (distinct rings that do not occlude passage of diagnostic 8-10 mm endoscope), Exudates Grade 0 None (no white lesions seen), Furrows Grade 1 Present (vertical lines with or without visible depth) and Stricture none (no stricture found). Biopsies were obtained from the proximal and distal esophagus with cold forceps for histology of suspected eosinophilic esophagitis. A small hiatal hernia was present. The second portion of the duodenum was normal. Impression: - Moderate Schatzki ring. Dilated. - Esophageal mucosal changes consistent with eosinophilic esophagitis. Biopsied. - Small hiatal hernia. - Normal second portion of the duodenum. Recommendation: - Discharge patient to home. - Resume previous diet. - Continue present medications. - Await pathology results. - Return to my office in 2 weeks. Procedure Code(s): --- Professional --- 74522, 59, Esophagogastroduodenoscopy, flexible, transoral; with insertion of guide wire followed by passage of dilator(s) through esophagus over guide wire G0500, Moderate sedation services provided by the same physician or other qualified health pet care worker performing a gastrointestinal endoscopic service that sedation supports, requiring the presence of an independent trained observer to assist in the monitoring of the patient's level of consciousness and physiological status; initial 15 minutes of intra-service time; patient age 5 years or older (additional time may be reported with [address]4838, as appropriate) Diagnosis Code(s): --- Professional --- K22.2, Esophageal obstruction K22.8, Other specified diseases of esophagus K44.9, Diaphragmatic hernia without obstruction or gangrene CPT copyright 2017 [employer]. All rights reserved. The codes documented in this report are preliminary and upon donor recruiter review may be revised to meet current compliance requirements. Amarjit Arango DO 12/22/2020 8:34:45 AM This report has been signed electronically. Number of Addenda: 1 Note Initiated On: 12/22/2020 8:05 AM Addendum Number: 1 Addendum Date: 10/20/2021 6:12:20 AM MAC was used instead of moderate sedation for this patient. Amarjit Arango DO 10/20/2021 6:12:26 AM This report has been signed electronically.
--- NOTE | 2020-12-22 08:36 | OP.CCLET_ITS ---
10/20/2021 Roz Morrison [address] [place] [address] Re : Upper GI endoscopy procedure for Bogdan Cobb Dear Dr. Morrison This procedure was performed on December. My impressions and recommendations are as follows: Impressions : - Moderate Schatzki ring. Dilated. - Esophageal mucosal changes consistent with eosinophilic esophagitis. Biopsied. - Small hiatal hernia. - Normal second portion of the duodenum. Recommendations : - Discharge patient to home. - Resume previous diet. - Continue present medications. - Await pathology results. - Return to my office in 2 weeks. My findings are described in the full procedure note, which is enclosed. If I can be of further assistance, please feel free to contact me at . Sincerely, Amarjit Arango, 12/22/2020 8:34:45 AM This report has been signed electronically.
[2020-12-22 08:40] VITALS: BP 112/56; BP 152/60; PULSE 61; RESP 16; O2SAT 96
[2020-12-22 08:45] VITALS: BP 112/59; BP 152/60; PULSE 61; RESP 16; O2SAT 96
[2020-12-22 08:49] VITALS: BP 122/59; BP 152/60; PULSE 57; RESP 16; TEMP 36.1; O2SAT 95
[2020-12-22 09:05] VITALS: BP 152/60
== END 2020-12-22 09:10 | disposition home or self-care (01) ==
LOC: EN 07:00 → AC 07:01
PROVIDERS: PCP Internal Medicine; Referring Provider Internal Medicine; Visit Provider Internal Medicine Gastroenterology
PROC: 0DJ08ZZ Inspection of Upper Intestinal Tract, Via Natural or Artificial Opening Endoscopic (ICD-10-PCS; CPT 43235; principal; 2020-12-22 08:25)
DX: K21.00 Gastro-esophageal reflux disease with esophagitis, without bleeding (principal); K22.2 Esophageal obstruction; K44.9 Diaphragmatic hernia without obstruction or gangrene; I10 Essential (primary) hypertension; M19.90 Unspecified osteoarthritis, unspecified site; E78.00 Pure hypercholesterolemia, unspecified; Z86.73 Personal history of transient ischemic attack (TIA), and cerebral infarction without residual deficits; Z79.899 Other long term (current) drug therapy
CPT/HCPCS: 43239; 43248; 88305; 88313; J7120

== ENCOUNTER → 2021-01-27 10:18 | Outpatient (CLI) | payer MEDICARE, SELFPAY ==
--- NOTE | 2021-01-27 10:20 | VDLE_ITS ---
Reason For Study: Leg pain RIGHT LEFT GSV is normal. CFV is compressible, spontaneous, phasic, CFV is compressible, spontaneous, phasic, competent, and demonstrates normal competent and demonstrates normal augmentation. augmentation. FV is compressible, spontaneous, phasic, competent and demonstrates normal augmentation. POP V is compressible, spontaneous, phasic, competent and demonstrates normal augmentation. T/P Trunk is compressible. PTV is compressible. RT PerV is compressible. Procedure This is a venous duplex using B-mode, color flow and spectral Doppler. Exam performed in department. A preliminary report was called and/or faxed to [place]. VL/Venous Duplex US, Unilateral Interpretation Summary Deep veins of the right lower extremity are patent and compressible segmentally . There is no evidence of right lower extremity deep vein thrombosis. Valvular competence nadir ears intact within the proximal deep venous system on the right . The right great saphenous vein a ppears patent and compressible segmentally. Ordering Physician: Elvia Monson Referring Physician: Roz Morrison M.D. Performed By: Anastacia Lazo RVT
== END ==
PROVIDERS: PCP Internal Medicine; Referring Provider Nurse Practitioner; Visit Provider Nurse Practitioner
DX: M79.604 Pain in right leg (principal)
CPT/HCPCS: 93971

== ENCOUNTER → 2021-06-28 | Outpatient (CLI) | payer MEDICARE, SELFPAY ==
--- NOTE | 2021-06-28 08:39 | ECHOD_ITS ---
Reason For Study: Aortic insufficiency, Thoracic Ao Aneurysm Procedure This was a 2D Doppler, Color Flow transthoracic echocardiogram. The exam was of adequate technical quality. Exam performed in department. Left Ventricle Normal LV size. Apical false tendon noted. Left ventricular systolic function is normal. The estimated ejection fraction is 65 %. Diastolic function is indeterminate. No regional wall motion abnormalities noted. Right Ventricle Normal RV size. Normal systolic function. Atria Normal left atrium. Normal right atrium. No doppler evidence for ASD. Mitral Valve There is mild mitral annular calcification. Extension of the mitral annular calcification onto the base of the posterior mitral valve leaflet. Trivial mitral valve insufficiency. Tricuspid Valve Normal tricuspid valve. Trivial tricuspid valve insufficiency. Right ventricular systolic pressure estimated to be 22 mmHg. Aortic Valve Trisinus/trileaflet aortic valve. Mild diffuse aortic valve thickening. Mild focal aortic valve calcification. Mild-Moderate (1-2+) aortic valve insufficiency. Pulmonic Valve The pulmonic valve is not well visualized. Trivial pulmonic valve insufficiency. Great Vessels Mild to moderately dilated aortic root. Pericardium/Pleural No pericardial effusion. MMode/2D Measurements & Calculations LVIDd: 4.0 cm IVSd: 1.3 cm Ao root diam: 4.4 cm LVIDs: 2.4 cm LVPWd: 1.1 cm RVDd: 3.3 cm FS: 39.6 % LAV(MOD-bp): 52.6 ml LVAd ap4: 37.3 cm2 SV(MOD-sp4): 78.4 ml LAV(MOD-bp) Indexed: 26.7 ml/m2 LVLd ap4: 9.0 cm LAV(MOD-sp2): 71.9 ml EDV(MOD-sp4): 126.0 ml LAV(MOD-sp4): 33.2 ml EDV(sp4-el): 131.6 ml LVAs ap4: 20.9 cm2 LVLs ap4: 7.6 cm ESV(MOD-sp4): 47.6 ml ESV(sp4-el): 48.7 ml EF(MOD-sp4): 62.2 % EF(sp4-el): 63.0 % SV(sp4-el): 82.9 ml LA A4 area: 13.4 cm2 LA dimension(2D): 3.9 cm RA A4 area: 14.4 cm2 Doppler Measurements & Calculations MV E max sahil: 72.2 cm/sec Lat Peak E' Sahil: 6.9 cm/sec Med Peak E' Sahil: 3.8 cm/sec MV A max sahil: 103.2 cm/sec E/E' lat: 10.5 E/E' med: 18.9 MV E/A: 0.70 Ao V2 max: 169.8 cm/sec AI max sahil: 353.4 cm/sec LV V1 max: 95.9 cm/sec Ao max P.5 mmHg AI max P.0 mmHg LV V1 max P.7 mmHg AI dec slope: 178.6 cm/sec2 AI P1/2t: 579.4 msec PA V2 max: 75.9 cm/sec TR max sahil: 215.1 cm/sec TR max P.5 mmHg ECHO/Echo Complete Interpretation Summary Left ventricular systolic function is normal. The estimated ejection fraction is 65 %. Apical false tendon noted. There is mild mitral annular calcification. Extension of the mitral annular calcification onto the base of the posterior mi tral valve leaflet. Trivial mitral valve insufficiency. Trivial tricuspid valve insufficiency. Mild diffuse aortic valve thickening. Mild focal aortic valve calcification. Mild-Moderate (1-2+) aortic valve insufficiency. Trivial pulmonic valve insufficiency. Mild to moderately dilated aortic root. Right ventricular systolic pressure estimated to be 22 mmHg. Diastolic function is indeterminate. Ordering Physician: Chon Almanzar Referring Physician: Roz Morrison M.D. Performed By: Rachelle Koenig RDCS
--- NOTE | 2021-06-28 08:39 | CT_ITS ---
STUDY: CTA CHEST REASON FOR EXAM: Male, 86 years old. Follow-up examination for thoracic aortic aneurysm RADIATION DOSAGE (If Supplied By Facility): CTDIvol = ( 14.83 ) mGy, DLP = ( 671.72 ) mGycm TECHNIQUE: The examination was performed with the intravenous administration of IV 100mL Isovue-300. Post-processing of the angiographic images was performed, with multiplanar reformation and 3D reconstruction. Individualized dose optimization techniques were used for this CT. COMPARISON: Comparison is made with prior study dated 11/12/2016. FINDINGS: Normal enhancement of the main pulmonary artery and right and left pulmonary arteries. Normal enhancement of the bilateral peripheral pulmonary arteries. There is no demonstrated pulmonary embolism. There is aneurysmal dilatation of the ascending aorta. The transverse diameter of the ascending aorta measures 43 mm''s. This is unchanged. There is no demonstrated aortic dissection. Normal heart and pericardium. Normal mediastinum. Calcified bilateral hilar lymph nodes more prominent on the right side. Normal visualized trachea and bronchi. The lungs are well expanded. Normal pulmonary parenchyma. Normal pleura. Normal chest wall structures. There are degenerative changes of thoracic spine. Mild loss of height of the superior endplates of the lower dorsal vertebrae. Stable 1.6 x 2.7 cm hypodense nodule with peripheral enhancement in the superior anterior aspect of the right lobe of the liver suggestive of a small hemangiomas. CT/CTA Chest W/WO Contrast IMPRESSION: Stable examination. Electronically Signed: Jm Howe MD at 12:52 EDT ,
[2021-06-28 08:51] LABS: CREATININE FINGERSTICK 0.7 mg/dL (0.70-1.30); EGFR FINGERSTICK > 60.0000 mL/min (>60)
== END | disposition home or self-care (01) ==
LOC: CT 08:39
PROVIDERS: PCP Internal Medicine; Referring Provider Internal Medicine Cardiovascular Disease; Visit Provider Internal Medicine Cardiovascular Disease
DX: I71.2 Thoracic aortic aneurysm, without rupture (principal); I35.1 Nonrheumatic aortic (valve) insufficiency; I10 Essential (primary) hypertension
CPT/HCPCS: 71275; 93306; Q9967

== ENCOUNTER 2022-01-07 02:46 | Emergency (ER) | payer MEDICARE, SELFPAY ==
[2022-01-07 02:47] VITALS: BP 156/88; PULSE 107; RESP 18; TEMP 36.1; O2SAT 95; BMI 27.2
[2022-01-07] MEDS: Ipratropium/Albuterol Sulfate 3 ML AMPUL.NEB INHALATION (03:29)
[2022-01-07] MEDS: Albuterol 2.5 MG/3 ML VIAL.NEB. INHALATION (03:29)
[2022-01-07] MEDS: dexAMETHasone 10 MG/ML Vial PO.IVFORM (03:31)
[2022-01-07 03:39] VITALS: PULSE 95; RESP 22
--- NOTE | 2022-01-07 04:34 | EX.ED.DYSGE1 ---
HPI History of Present Illness Chief Complaint: Cough Narrative Narrative: Patient is an 86-year-old male with past medical history of hypertension hyperlipidemia and thoracic aortic aneurysm. He states about 5 days ago he was seen by his family doctor secondary to congestion cough and drainage. He states COVID was negative but he tested positive for influenza A and therefore was placed on Tamiflu Tessalon Perles and Robitussin-AC. He states has been taking his medications as directed but he stays up all night hacking and coughing and secondary to this comes to the ER for evaluation [facility] Medical History Arthritis BPH (benign prostatic hyperplasia) Cardiology follow-up encounter Carotid stenosis, bilateral Cough Dietary restriction Difficulty swallowing Dysphagia Easy bruising Essential hypertension GERD (gastroesophageal reflux disease) History of echocardiogram History of pain when walking History of stress test Hypertension Hypertension Non-smoker Nonrheumatic aortic valve insufficiency Osteoarthritis Pain Prostate disease Pure hypercholesterolemia Restless legs Right groin pain Shortness of breath on exertion Thoracic aortic aneurysm without rupture TIA (transient ischemic attack) TIA (transient ischemic attack) Wears glasses Wears hearing aid Home Medications aspirin 81 mg chewable tablet 81 mg PO DAILY@0800 [facility] 04/14/16 [History Last Taken Unknown] xeyyqgrw-hkp-iprli acid 300 mcg-lycopene 600 mcg-lutein 300 mcg tablet 1 ea PO DAILY supplement 04/14/16 [History Last Taken Unknown] tamsulosin 0.4 mg capsule 0.4 mg PO QDAY prostate 01/22/17 [History Last Taken Unknown] cholecalciferol (vitamin D3) 10 mcg (400 unit) chewable tablet (PushToTest Vitamin D3) 10 mcg PO DAILY 03/11/20 [History Last Taken Unknown] melatonin 5 mg capsule 5 mg PO QHS PRN Sleep 03/11/20 [History Last Taken Unknown] metoprolol tartrate 25 mg tablet 12.5 mg PO BID 03/11/20 [History Last Taken 12/22/20] omega-3 fatty acids 1,000 mg capsule (Fish Oil Concentrate) 1,000 mg PO DAILY 03/11/20 [History Last Taken Unknown] ascorbic acid (vitamin C) 1,000 mg tablet 1 g PO DAILY 09/26/20 [History Last Taken Unknown] magnesium oxide 400 mg PO DAILY 09/26/20 [History Last Taken Unknown] zinc gluconate 30 mg tablet 30 mg PO DAILY 09/26/20 [History Last Taken Unknown] Prostate B 3 cap PO/SL DAILY 12/19/20 [History Last Taken Unknown] albuterol sulfate 90 mcg/actuation aerosol inhaler (Ventolin HFA) 1 - 2 puff inhalation Q4H PRN PRN Wheezing #1 device 01/07/22 [Rx Last Taken Unknown] azelastine 137 mcg (0.1 %) nasal spray aerosol 2 spray intranasal BID #30 mL 01/07/22 [Rx Last Taken Unknown] buvxtslv-lddadcshq-xbomsnmk 3.5 mg/mL-10,000 unit/mL-0.1% eye drops (Maxitrol) 2 drp EACH EYE 4X/DAY 7 days #10 mL 01/07/22 [Rx Last Taken Unknown] prednisone 20 mg tablet 20 mg PO DAILY 5 days #5 tabs 01/07/22 [Rx Last Taken Unknown] Allergy/AdvReac Type Severity Reaction Status Date / Time Penicillins Allergy Unknown Verified 01/07/22 02:54 Family History Father CAD (coronary artery disease) Diabetes Mother CAD (coronary artery disease) CHF (congestive heart failure) Sister Hypertension Cancer leukemia Surgical History H/O hemorrhoidectomy H/O hernia repair History of cardiac catheterization History of cataract extraction History of colonoscopy (~2015) History of esophagogastroduodenoscopy (EGD) History of right-sided carotid endarterectomy History of sinus surgery Social History Smoking Status: Never smoker alcohol intake: never substance use type: does not use what type of physical activity do you participate in: walking frequency: daily duration: 30-45 minutes/day ROS ROS ED Constitutional Constitutional ED: Reports chills, fever(s) and subjective Eyes Eyes: Reports other Details: Positive bilateral eye discharge ENT ENT ED: Reports rhinorrhea and sore throat Cardiovascular Cardiovascular: Denies chest pain Respiratory/Chest Respiratory/Chest: Reports cough and dyspnea Gastrointestinal Gastrointestinal: Denies abdominal pain, diarrhea, nausea or vomiting Genitourinary Genitourinary ED: Denies dysuria Musculoskeletal Musculoskeletal: Reports myalgias Integumentary Denies rash Neurologic Neurologic: Reports headache(s) Hematologic/Lymphatic Hematologic/Lymphatic: Denies easy bleeding or easy bruising EXAM Physical Exam Const Vital Signs: 01/07/22 02:47 01/07/22 02:55 01/07/22 03:39 Temperature 97.0 F L Temperature Source Temporal Pulse Rate 107 H 95 Respiratory Rate 18 22 H Respiratory Effort Normal Respiratory Pattern Tachypnea Blood Pressure 156/88 H Blood Pressure Mean 110 Pulse Ox 95 Oxygen Delivery Method Room Air 01/07/22 05:13 Temperature Temperature Source Pulse Rate 90 Respiratory Rate 19 H Respiratory Effort Respiratory Pattern Blood Pressure Blood Pressure Mean Pulse Ox 97 Oxygen Delivery Method Positive well nourished and well developed General Appearance ED: well developed HEENT Reports moist mucous membranes HEENT Narrative: Nasal mucosa is hyperemic and boggy with enlarged inferior nasal turbinate. There is cobblestoning the posterior pharynx consistent with sinus drainage without airway edema or compromise Eyes PERRL and EOMs intact bilaterally Eyes Narrative: Bilateral sclera are injected with full conjunctiva and purulent discharge present Neck supple and no JVD Neck Narrative: Positive anterior cervical lymphadenopathy Chest Wall palpation of chest normal Resp normal respiratory effort Resp Narrative: Breath sounds are slight diminished throughout with faint expiratory wheeze in the bilateral bases but otherwise no nasal flaring retractions tachypnea or accessory muscle use Cardio regular rate and regular rhythm GI normal to inspection, nondistended, normoactive bowel sounds, non-tender, non-distended and no masses Auscultation: normoactive bowel sounds Palpation: soft Extremity normal to inspection Neuro oriented x3 and CN's II-XII intact bilaterally Sensorium / Orientation: alert Psych mental status grossly normal Skin no rashes or lesions noted MDM MDM MDM Narrative Medical decision making narrative: Patient presented to the ER slightly hypertensive but does have a past medical history of this. Otherwise he is satting in the high 90s on room air and has no signs of acute distress. He already has a known diagnosis of influenza A. Therefore do not feel there is need to repeat viral swabs. As the patient has known influenza I do not feel chest x-ray is warranted as even if it shows pneumonia it will be viral pneumonia and there is no need for antibiotics. As the patient is not having respiratory distress or hypoxia he will not require admission to the hospital. He will be placed on symptomatic medications and is otherwise safe for discharge Discharge Plan Triage Chief Complaint: Cough ED Provider: Gerald Emerson Dx/Rx/DC Orders Clinical Impression: Influenza A, Essential hypertension, Acute viral conjunctivitis Instructions: ED Influenza (Adult) Prescriptions: New albuterol sulfate [Ventolin HFA] 90 mcg/actuation HFA aerosol inhaler 1 - 2 puff inhalation Q4H PRN PRN (Reason: Wheezing) Qty: 1 0RF prednisone 20 mg tablet 20 mg PO DAILY 5 Days Qty: 5 0RF azelastine 137 mcg (0.1 %) aerosol,spray 2 spray intranasal BID Qty: 30 0RF Rx Instructions: administer into each nostril neomycin-polymyxin B-dexameth [Maxitrol] 3.5mg/mL-10,000 unit/mL-0.1 % drops,suspension 2 drp EACH EYE 4X/DAY 7 Days Qty: 10 0RF No Action tamsulosin 0.4 mg capsule,extended release 24hr 0.4 mg PO QDAY melatonin 5 mg capsule 5 mg PO QHS PRN (Reason: Sleep) omega-3 fatty acids [Fish Oil Concentrate] 1,000 mg capsule 1,000 mg PO DAILY cholecalciferol (vitamin D3) [Kids Vitamin D3] 10 mcg (400 unit) tablet,chewable 10 mcg PO DAILY metoprolol tartrate 25 mg tablet 12.5 mg PO BID magnesium oxide 400 mg magnesium capsule 400 mg PO DAILY ascorbic acid (vitamin C) 1,000 mg tablet 1 g PO DAILY zinc gluconate 30 mg tablet 30 mg PO DAILY aspirin 81 MG tablet,chewable 81 mg PO DAILY@0800 bzwyhnjv-ctf-DL-lycopen-lutein 1 EACH tablet 1 ea PO DAILY Prostate B 3 cap PO/SL DAILY Primary Care Provider: Roz Morrison Referrals: Roz Morrison DO [Primary Care Provider] - Activity Restrictions/Additional Instructions: You have influenza A which is causing persistent cough and drainage. This will usually last 7 to 10 days which means you have another 2 to 5 days of symptoms on average. Take the medication prescribed today to help reduce congestion wheezing and cough. You may also mix hot tea honey and a shot of whiskey in order to help reduce cough and help with sleep. Please return to the ER should you have any further concerns Disposition Disposition: Home, Self Care Discharge Date/Time: 01/07/22 05:14
[2022-01-07 05:13] VITALS: PULSE 90; RESP 19; O2SAT 97
== END 2022-01-07 05:14 | disposition home or self-care (01) ==
PROVIDERS: Emergency Provider Emergency Medicine; PCP Internal Medicine; Visit Provider Emergency Medicine
DX: J10.1 Influenza due to other identified influenza virus with other respiratory manifestations (principal); E78.00 Pure hypercholesterolemia, unspecified; I10 Essential (primary) hypertension; B30.9 Viral conjunctivitis, unspecified; Z20.822 Contact with and (suspected) exposure to COVID-19
CPT/HCPCS: 94640; 99283

== ENCOUNTER → 2022-06-26 | Outpatient (CLI) | payer MEDICARE, SELFPAY ==
--- NOTE | 2022-06-26 12:14 | CT_ITS ---
STUDY: CTA CHEST REASON FOR EXAM: Male, 87 years old. Thoracic ascending aortic aneurysm. Follow-up examination. RADIATION DOSAGE (If Supplied By Facility): CTDIvol = ( 14.9 ) mGy, DLP = ( 623.93 ) mGycm TECHNIQUE: The examination was performed with the intravenous administration of IV 75mL Isovue-370. Post-processing of the angiographic images was performed, with multiplanar reformation and 3D reconstruction. Individualized dose optimization techniques were used for this CT. COMPARISON: Comparison is made with prior study of June 28, 2021. FINDINGS: Normal enhancement of the main pulmonary artery and right and left pulmonary arteries. Normal enhancement of the bilateral peripheral pulmonary arteries. There is no demonstrated pulmonary embolism. There is aneurysmal dilatation of the ascending aorta. The transverse diameter of the ascending aorta measures 45 mm''s. Atherosclerotic plaque formation of the aortic arch. There is no demonstrated aortic dissection. There are calcifications of the coronary arteries. Normal mediastinum. Calcified right hilar lymph nodes. Normal visualized trachea and bronchi. The lungs are well expanded. Normal pulmonary parenchyma. Normal pleura. Normal chest wall structures. There are degenerative changes of thoracic spine. Diffuse fatty infiltration of the liver. Stable 2.9 cm by 3.2 cm hypodense nodule in the peripheral lateral aspect of the right lobe of the liver with peripheral enhancement suggestive of an hemangioma. CT/CTA Chest W/WO Contrast IMPRESSION: The transverse diameter of the root of the ascending thoracic aorta measures 45 mm. Electronically Signed: Jm Howe MD at 13:32 EDT ,
--- NOTE | 2022-06-26 12:37 | CDU_ITS ---
Reason For Study: Carotid Occlusion Rt. Velocities/BP Lt. Velocities/BP Prox CCA 116.2/8.4 cm/sec. Prox CCA 70.7/14.2 cm/sec. Mid CCA 86.4/7.3 cm/sec. Mid CCA 62.1/5.6 cm/sec. Dist CCA 45.0/5.2 cm/sec. Dist CCA 41.3/5.6 cm/sec. Prox ICA 63.6/12.6 cm/sec. Prox ICA 60.9/9.3 cm/sec. Mid ICA 64.5/14.5 cm/sec. Mid ICA 78.1/11.8 cm/sec. Dist ICA 52.2/10.6 cm/sec. Dist ICA 78.4/15.6 cm/sec. Rt. ICA/CCA = 0.7. Lt. ICA/CCA = 1.3. Prox ECA 67.4/6.0 cm/sec. Prox ECA 89.1/9.3 cm/sec. Rt. Vert. 26.0/6.8 cm/sec. Lt. Vert. 38.9/7.5 cm/sec. Right Extracranial There is homogeneous, smooth atherosclerotic plaque noted in the right common carotid artery. There is heterogeneous, irregular atherosclerotic plaque noted in the right internal carotid artery. History of RT Endarterectomy. There is intimal thickening but no significant atherosclerotic plaque noted in the right external carotid artery. Antegrade flow is noted in the right vertebral artery. Left Extracranial There is homogeneous, smooth atherosclerotic plaque noted in the left common carotid artery. There is heterogeneous, irregular atherosclerotic plaque noted in the left internal carotid artery. There is intimal thickening but no significant atherosclerotic plaque noted in the left external carotid artery. Antegrade flow is noted in the left vertebral artery. Procedure Carotid Duplex 01603. This is a Carotid Duplex examination using B-mode, color flow and specral Doppler. The exam was diagnostic. Exam performed in department. VL/Carotid Duplex Ultrasound Interpretation Summary Postoperative changes of the right carotid bulb and proximal internal carotid a rtery with minimal irregular plaque and less than 50% stenosis of the internal carotid artery Less than 50% stenosis right external carotid artery Heterogenous plaque at the proximal left internal carotid artery albeit with le ss than 50% stenosis Less than 50% stenosis left external carotid artery Patent and antegrade vertebral arteries bilaterally There is improvement per the previous examination January 02, 2019 regarding t he right carotid Ordering Physician: Keisha Briscoe Referring Physician: Keisha Briscoe Performed By: Abrahan Levy RVT
[2022-06-26 12:45] LABS: CREATININE FINGERSTICK 1.1 mg/dL (0.70-1.30); EGFR FINGERSTICK > 60.0000 mL/min (>60)
== END | disposition home or self-care (01) ==
LOC: CT 12:13
PROVIDERS: PCP Internal Medicine; Referring Provider Internal Medicine; Visit Provider Internal Medicine
DX: I71.21 Aneurysm of the ascending aorta, without rupture (principal); I65.23 Occlusion and stenosis of bilateral carotid arteries
CPT/HCPCS: 71275; 93880; Q9967

== ENCOUNTER → 2022-07-06 | Outpatient (CLI) | payer MEDICARE, SELFPAY ==
--- NOTE | 2022-07-06 09:56 | ECHOD_ITS ---
Version 2 Reason For Study: NON RHEUMATIC AI, TAA W/O RUPTURE Procedure This was a 2D Doppler, Color Flow transthoracic echocardiogram. The study was technically difficult. Exam performed in department. Left Ventricle Normal LV size. Left ventricular systolic function is normal. The estimated ejection fraction is 65 %. Stage 1 diastolic dysfunction. No regional wall motion abnormalities noted. Right Ventricle Normal RV size. Normal systolic function. Atria Normal left atrium. Normal right atrium. Mitral Valve There is mild mitral annular calcification. Tricuspid Valve Normal tricuspid valve. Mild tricuspid valve insufficiency. Pulmonary artery systolic pressure is 23 mmHg. Aortic Valve Trisinus/trileaflet aortic valve. Mild focal aortic valve calcification. Mild (1+) aortic valve insufficiency. Great Vessels Mild to moderately dilated aortic root. The pulmonary artery is normal size. Normal inferior vena cava. Pericardium/Pleural No pericardial effusion. MMode/2D Measurements & Calculations LVIDd: 4.7 cm IVSd: 1.1 cm Ao root diam: 4.5 cm LVIDs: 3.0 cm LVPWd: 1.1 cm RVDd: 3.2 cm FS: 36.1 % LAV(MOD-bp): 57.3 ml LVAd ap4: 32.1 cm2 LVAd ap2: 31.9 cm2 LAV(MOD-bp) Indexed: 28.9 ml/m2 LVLd ap4: 8.6 cm LVLd ap2: 8.6 cm LAV(MOD-sp2): 60.7 ml EDV(MOD-sp4): 98.2 ml EDV(MOD-sp2): 97.4 ml LAV(MOD-sp4): 51.1 ml EDV(sp4-el): 101.4 ml EDV(sp2-el): 100.3 ml LVAs ap4: 18.2 cm2 LVAs ap2: 16.9 cm2 LVLs ap4: 7.1 cm LVLs ap2: 7.0 cm ESV(MOD-sp4): 40.8 ml ESV(MOD-sp2): 35.5 ml ESV(sp4-el): 39.9 ml ESV(sp2-el): 34.8 ml EF(MOD-sp4): 58.5 % EF(MOD-sp2): 63.5 % EF(sp4-el): 60.7 % SV(MOD-sp4): 57.4 ml SV(MOD-sp2): 61.8 ml SV(sp4-el): 61.6 ml LA dimension(2D): 3.7 cm LA A4 area: 18.3 cm2 Time Measurements MV dec time: 0.20 sec Doppler Measurements & Calculations MV E max sahil: 73.2 cm/sec Lat Peak E' Sahil: 9.4 cm/sec Med Peak E' Sahil: 6.9 cm/sec MV A max sahil: 105.2 cm/sec E/E' lat: 7.8 E/E' med: 10.5 MV E/A: 0.70 Ao V2 max: 157.1 cm/sec AI max sahil: 361.0 cm/sec LV V1 max: 110.1 cm/sec Ao max P.9 mmHg AI max P.2 mmHg LV V1 max P.8 mmHg Ao V2 mean: 105.0 cm/sec AI dec slope: 187.3 cm/sec2 LV V1 mean P.7 mmHg Ao mean P.9 mmHg AI P1/2t: 564.5 msec LV V1 mean: 79.0 cm/sec Ao V2 VTI: 31.4 cm LV V1 VTI: 27.5 cm AV (velocity ratio): 0.88 PA V2 max: 85.0 cm/sec TR max sahil: 224.4 cm/sec TR max P.1 mmHg ECHO/Echo Complete Interpretation Summary Normal LV size. Left ventricular systolic function is normal. The estimated ejection fraction is 65 %. Mild to moderately dilated aortic root. Mild (1+) aortic valve insufficiency. Stage 1 diastolic dysfunction. Compared to previous study, the left ventricular systolic function is the same. . Ordering Physician: Chon Almanzar Referring Physician: Keisha Briscoe Performed By: Ailyn Molina, GI, RVT
== END | disposition home or self-care (01) ==
PROVIDERS: PCP Internal Medicine; Referring Provider Internal Medicine Cardiovascular Disease; Visit Provider Internal Medicine Cardiovascular Disease
DX: I35.1 Nonrheumatic aortic (valve) insufficiency (principal); I71.20 Thoracic aortic aneurysm, without rupture, unspecified; E78.00 Pure hypercholesterolemia, unspecified
CPT/HCPCS: 93306

== ENCOUNTER → 2022-10-08 | Outpatient (CLI) | payer MEDICARE, SELFPAY ==
--- NOTE | 2022-10-08 15:54 | CT_ITS ---
STUDY: CTA CHEST REASON FOR EXAM: Male, 87 years old. 3 months follow-up thoracic aortic aneurysm RADIATION DOSAGE (If Supplied By Facility): CTDIvol = ( 22.70 ) mGy, DLP = ( 480.51 ) mGycm TECHNIQUE: The examination was performed with the intravenous administration of 100mL Isovue-370. Post-processing of the angiographic images was performed, with multiplanar reformation and 3D reconstruction. Individualized dose optimization techniques were used for this CT. COMPARISON: CTA chest 06/26/2022 FINDINGS: Normal enhancement of the main pulmonary artery and right and left pulmonary arteries. Normal enhancement of the bilateral peripheral pulmonary arteries. There is no demonstrated pulmonary embolism. Stable 4.5 cm aneurysmal dilatation ascending thoracic aorta, descending aorta normal caliber. There is no demonstrated aortic dissection. Normal heart and pericardium. Normal mediastinum. Normal hilar regions. Normal pulmonary parenchyma. No pleural effusions. Normal chest wall structures. No acute or aggressive osseous abnormality. No acute findings in the upper abdomen. Stable 2.7 cm low-attenuation lesion right lobe liver with discontinuous peripheral puddling enhancement suggesting hemangioma. CT/CTA Chest W/WO Contrast IMPRESSION: Stable examination with stable 4.5 cm aneurysmal dilatation ascending thoracic aorta. No evidence of dissection. No acute pulmonary findings or other significant interval change from the prior examination. Electronically Signed: Jonathon Boo MD at 21:08 EDT ,
[2022-10-08 16:19] LABS: CREATININE FINGERSTICK < 0.9 mg/dL (0.70-1.30); EGFR FINGERSTICK > 60.0000 mL/min (>60)
== END | disposition home or self-care (01) ==
LOC: CT 15:51
PROVIDERS: PCP Internal Medicine; Referring Provider Internal Medicine Cardiovascular Disease; Visit Provider Internal Medicine Cardiovascular Disease
DX: I71.20 Thoracic aortic aneurysm, without rupture, unspecified (principal)
CPT/HCPCS: 71275; Q9967

== ENCOUNTER 2022-11-27 10:28 | Day surgery (SDC) | payer MEDICARE, SELFPAY ==
--- NOTE | 2022-11-27 | COLBX_PTH ---
PATIENT: MASOOD SIMON LOC: EN U#:[id number] AGE/SX: 87/M ROOM: RE11/27/[address]: Dr. Amarjit Arango DO : 1935 BED: DIS: 11/27/2022 SPEC #: [id number] RECD: 11/27/22 15:14 STATUS: EUGENIO RICK #: [id number] RODDY: 11/27/22 00:[address]: Amarjit Arango DEPT: SURGICAL PATHOLOGY RECD BY: Marisol Ramirez ENTERED: 11/28/22 09:57 SP TYPE: COLON BX OTHR DR: Dr. Keisha Briscoe MD Tissues: A - SPLENIC FLEXURE B - Sigmoid colon biopsy Procedures: Surgery Specimen Level IV HEADER OPERATION: Colonoscopy, biopsy PRE-OP DIAGNOSIS: Screening colon cancer TISSUE SUBMITTED: A - Splenic flexure polyp biopsy, B - Sigmoid polyps (x2) biopsy MICROSCOPIC DIAGNOSIS A. Colonic polyp at splenic flexure, biopsy: Fragments of hyperplastic polyp. B. Sigmoid colon polyps, biopsy: Tubular adenoma. Hyperplastic polyp. AM:sarabjit 11/29/2022 MICROSCOPIC DESCRIPTION Slides are reviewed. GROSS DESCRIPTION A - Received in fixative is one container labeled with the patient's name and designated splenic flexure polyp. The specimen consists of two irregular fragments of light moreira soft tissue that in aggregate measure 0.5 x 0.2 x 0.1 cm. The specimen is totally submitted in one cassette. B - Received in fixative is one container labeled with the patient's name and designated sigmoid polyp biopsy. The specimen consists of multiple irregular fragments of light moreira soft tissue that in aggregate measure 0.7 x 0.3 x 0.1 cm. The specimen is totally submitted in one cassette. / AM:sarabjit 11/28/2022 TC:5 CPT: 15931 x2
[2022-11-27 10:40] VITALS: BP 143/57; PULSE 77; RESP 16; TEMP 36.3; O2SAT 95; BMI 27.8
[2022-11-27] MEDS: Lactated Ringers 1,000 ML 15 ML IV (10:45)
--- NOTE | 2022-11-27 11:37 | PCM.HP.BLA ---
History and Physical Date of Admission: 11/27/22 MASOOD SIMON, is a 86 M who presents to the office today for 85 M who presents to the office today for Last visit 11/29/20 for initial evaluation for esophageal dysphagia with solids and pills. Dysphagia ? EGD with possible dilation. Expected PPI need BID with eight weeks titration until cessation of medication. EGD performed 12/22/20 Moderate Schatzki ring, dilated. Esophageal mucosal changes consistent with EOE. Small hiatal hernia. Biopsies - Esophagus, random biopsy: Fragments of gastroesophageal mucosa with mild chronic inflammation. Medications ? Protonix taper. Still has some difficulty with swallowing and states he continues to have a harsh cough frequently that is not productive. Protonix BID started yesterday. ROS General General: No weight change, appetite, fatigue, colon cancer, breast cancer or weakness HEENT HEENT: No difficulty swallowing, eye injury, eye surgery, swollen glands or hoarseness Endo Endocrine: No thyroid disease, diabetes mellitus, thyroid cancer, Hair loss, heat intolerance or cold intolerance Skin Skin: No rash or changing moles Breast Breast: No left breast lump, right breast lump, nipple discharge, breast pain, abnormal mammogram, abnormal US or breast enlargement Musc Musculoskeletal: No back problems, arthritis, rheumatoid arthritis, gout or joint pain Cardio Cardiovascular: No murmur, pacemaker, heart disease, atrial fibrillation, high blood pressure, heart attack, heart stent, palpitations, shortness of breat with exertion or chest pain Psych Psychiatric: No depression, anxiety or hearing voices Resp Respiratory: No shortness of breath, No sleep apnea, No cough, No COPD, No asthma, No emphysema and No wheezing Gastro Gastrointestinal: No abdominal pain, No nausea or vomiting, No diarrhea, No constipation, No blood in stool, No acid reflux, No hemorrhoids, No ulcers, No gallbladder problem and No black,tarry stools Brad Hematologic: No blood thinners, No blood disorders, No bleeding, No anemia and No blood clots Neuro Neurologic: No system reviewed and no additional complaints, except as documented, No as per HPI, No abnormal gait, No abnormal hearing, No abnormal movements, No abnormal speech, No behavioral changes, No burning sensations, No confusion, No convulsions, No disequilibrium, No dizziness, No localized weakness, No frequent falls, No headache(s), No lack of coordination, No loss of vision, No memory loss, No numbness, No other visual disturbances, No radicular pain, No restless legs, No sensory deficit, No syncope, No tingling, No tremor(s), No weakness and No other Exam Const General: cooperative and comfortable Nutritional Appearance: average body habitus and well nourished [facility] Head: normal to inspection Ears: hearing grossly normal bilaterally Nose: external nose normal Face and sinus: normal facial exam Mouth: oral mucosae normal Throat: posterior oropharynx normal Eyes General: appearance normal, both eyes and all related structures Neck Neck: normal visual inspection Chest Chest palpation & inspection: normal inspection of the chest and normal palpation of entire chest wall Resp Effort & Inspection: normal respiratory effort Cardio Palpation: normal PMI Rate: regular rate Rhythm: regular rhythm GI Inspection: normal to inspection Palpation: no hepatosplenomegaly Percussion: normal to percussion Auscultation: normal bowel sounds Skin General: no rashes or lesions noted Neuro General: patient alert Extrem General: normal to inspection Psych Affect: normal affect Assessment and Plan Assessment and Plan (1) GERD (gastroesophageal reflux disease): Status: Acute Plan - Dr. Ocasio Friend, DO: Patient is up on pantoprazole therapy with famotidine. we will continue that for the next couple months and then wean off famotidine (2) Dysphagia: Status: Acute Plan - Dr. Ocasio Friend, DO: Anymore dysphagia at this time after undergoing esophageal dilation. Hopefully this will plan for him to have another endoscopy with dilation. Plan Details Goals & Barriers: Goals Decrease pain Improve ROM Decrease inflammation Barriers Stenosis I have examined the patient and the H&P has been reviewed. There are no clinical changes since date of exam.
[2022-11-27 12:20] VITALS: BP 108/54; BP 109/54; BP 143/57; PULSE 55; PULSE 57; RESP 16; RESP 18; TEMP 36.4; O2SAT 95; O2SAT 96
--- NOTE | 2022-11-27 12:20 | OP.COLON_ITS ---
Patient Name: Bogdan Cobb Procedure Date: 11/27/2022 11:34 AM Date of : 1935 Age: 87 Procedure: Colonoscopy Indications: Screening for colorectal malignant neoplasm Providers: Amarjit Arango DO Referring MD: Keisha Briscoe Medicines: Monitored Anesthesia Care Patient Profile: This is an 87 year old male. Refer to note in patient chart for documentation of history and physical. Last Colonoscopy: more than 10 years ago. Complications: No immediate complications. Procedure: Pre-Anesthesia Assessment: - Prior to the procedure, a History and Physical was performed, and patient medications and allergies were reviewed. The patient is competent. The risks and benefits of the procedure and the sedation options and risks were discussed with the patient. All questions were answered and informed consent was obtained. Patient identification and proposed procedure were verified by the physician. Mental Status Examination: normal. Prophylactic Antibiotics: The patient does not require prophylactic antibiotics. Prior Anticoagulants: The patient has taken no anticoagulant or antiplatelet agents. ASA Grade Assessment: II - A patient with mild systemic disease. After reviewing the risks and benefits, the patient was deemed in satisfactory condition to undergo the procedure. The anesthesia plan was to use monitored anesthesia care (MAC). Immediately prior to administration of medications, the patient was re-assessed for adequacy to receive sedatives. The heart rate, respiratory rate, oxygen saturations, blood pressure, adequacy of pulmonary ventilation, and response to care were monitored throughout the procedure. The physical status of the patient was re-assessed after the procedure. After I obtained informed consent, the scope was passed under direct vision. Throughout the procedure, the patient's blood pressure, pulse, and oxygen saturations were monitored continuously. The Colonoscope was introduced through the anus and advanced to the cecum, identified by appendiceal orifice and ileocecal valve. The colonoscopy was performed without difficulty. The patient tolerated the procedure well. The quality of the bowel preparation was good. The ileocecal valve, appendiceal orifice, and rectum were photographed. Scope In: 11:52:18 AM Scope Withdrawal Time 0 hours 15 minutes 53 seconds Scope Out: 12:13:26 PM Total Procedure Duration Time 0 hours 21 minutes 8 seconds Findings: The perianal and digital rectal examinations were normal. Three sessile polyps were found in the sigmoid colon and transverse colon. The polyps were 1 to 2 mm in size. These polyps were removed with a cold snare. Resection and retrieval were complete. Verification of patient identification for the specimen was done. Estimated blood loss was minimal. Multiple small and large-mouthed diverticula were found in the recto-sigmoid colon and sigmoid colon. Impression: - Three 1 to 2 mm polyps in the sigmoid colon and in the transverse colon, removed with a cold snare. Resected and retrieved. - Diverticulosis in the recto-sigmoid colon and in the sigmoid colon. Recommendation: - Discharge patient to home. - Resume previous diet. - Continue present medications. - Await pathology results. - Repeat colonoscopy in 5 years for surveillance. Procedure Code(s): --- Professional --- 07881, Colonoscopy, flexible; with removal of tumor(s), polyp(s), or other lesion(s) by snare technique CPT copyright 2021 [employer]. All rights reserved. The codes documented in this report are preliminary and upon stand up comedian review may be revised to meet current compliance requirements. Amarjit Arango DO 11/27/2022 12:20:22 PM This report has been signed electronically. Number of Addenda: 0 Note Initiated On: 11/27/2022 11:34 AM
--- NOTE | 2022-11-27 12:21 | OP.CCLET_ITS ---
11/27/2022 Keisha Briscoe Re : Colonoscopy procedure for Bogdan Cobb Dear Rachna This procedure was performed on Sunday, November 27, 2022. My impressions and recommendations are as follows: Impressions : - Three 1 to 2 mm polyps in the sigmoid colon and in the transverse colon, removed with a cold snare. Resected and retrieved. - Diverticulosis in the recto-sigmoid colon and in the sigmoid colon. Recommendations : - Discharge patient to home. - Resume previous diet. - Continue present medications. - Await pathology results. - Repeat colonoscopy in 5 years for surveillance. My findings are described in the full procedure note, which is enclosed. If I can be of further assistance, please feel free to contact me at . Sincerely, Amarjit Arango, 11/27/2022 12:20:22 PM This report has been signed electronically.
[2022-11-27 12:25] VITALS: BP 104/52; BP 143/57; PULSE 56; RESP 18; O2SAT 95
[2022-11-27 12:35] VITALS: BP 113/55; BP 115/57; BP 143/57; PULSE 56; PULSE 61; RESP 14; TEMP 36.6; O2SAT 96; O2SAT 99
[2022-11-27 13:00] VITALS: BP 143/57
== END 2022-11-27 13:12 | disposition home or self-care (01) ==
LOC: EN 10:28 → AC 10:30
PROVIDERS: PCP Internal Medicine; Referring Provider Internal Medicine; Visit Provider Internal Medicine Gastroenterology
PROC: 0DJD8ZZ Inspection of Lower Intestinal Tract, Via Natural or Artificial Opening Endoscopic (ICD-10-PCS; CPT 45378; principal; 2022-11-27 11:25)
DX: Z12.11 Encounter for screening for malignant neoplasm of colon (principal); K21.9 Gastro-esophageal reflux disease without esophagitis; K57.30 Diverticulosis of large intestine without perforation or abscess without bleeding; D12.5 Benign neoplasm of sigmoid colon; Z79.899 Other long term (current) drug therapy; Z79.82 Long term (current) use of aspirin; I10 Essential (primary) hypertension; E78.00 Pure hypercholesterolemia, unspecified; Z87.19 Personal history of other diseases of the digestive system
CPT/HCPCS: 45385; 88305; J7120; J2405

== ENCOUNTER → 2023-05-06 | Outpatient (CLI) | payer MEDICARE, SELFPAY ==
--- NOTE | 2023-05-06 11:00 | ECHOD_ITS ---
Reason For Study: NONRHEUMATIC AI Procedure This was a 2D Doppler, Color Flow transthoracic echocardiogram. Exam performed in department. Left Ventricle Normal LV size. Left ventricular systolic function is normal. Stage 1 diastolic dysfunction. The left ventricular ejection fraction is 60 %. No regional wall motion abnormalities noted. Right Ventricle Normal RV size. Normal systolic function. Atria Normal left atrium. Normal right atrium. Mitral Valve Normal mitral valve. Tricuspid Valve Normal tricuspid valve. Mild tricuspid valve insufficiency. Aortic Valve Mild focal aortic valve calcification. Mild (1+) aortic valve insufficiency. Pulmonic Valve Normal pulmonic valve. Mild (1+) pulmonic valve insufficiency. Great Vessels Mild to moderately dilated aortic root. The pulmonary artery is normal size. Inferior vena cava collapse with respiration. Pericardium/Pleural No pericardial effusion. MMode/2D Measurements & Calculations LVIDd: 4.9 cm IVSd: 1.1 cm Ao root diam: 4.3 cm LVIDs: 2.8 cm LVPWd: 1.1 cm RVDd: 3.2 cm FS: 42.7 % LAV(MOD-bp): 54.2 ml LVAd ap4: 32.4 cm2 LVAd ap2: 29.1 cm2 LAV(MOD-bp) Indexed: 27.7 ml/m2 LVLd ap4: 8.4 cm LVLd ap2: 7.9 cm LAV(MOD-sp2): 59.7 ml EDV(MOD-sp4): 102.3 ml EDV(MOD-sp2): 91.3 ml LAV(MOD-sp4): 49.2 ml EDV(sp4-el): 106.3 ml EDV(sp2-el): 90.5 ml LVAs ap4: 17.8 cm2 LVAs ap2: 15.3 cm2 LVLs ap4: 6.8 cm LVLs ap2: 6.5 cm ESV(MOD-sp4): 39.4 ml ESV(MOD-sp2): 29.8 ml ESV(sp4-el): 39.7 ml ESV(sp2-el): 30.5 ml EF(MOD-sp4): 61.5 % EF(MOD-sp2): 67.4 % EF(sp4-el): 62.7 % SV(MOD-sp4): 62.9 ml SV(MOD-sp2): 61.5 ml SV(sp4-el): 66.6 ml LA dimension(2D): 3.9 cm LA A4 area: 17.9 cm2 RA A4 area: 19.8 cm2 TAPSE: 2.1 cm Time Measurements MV dec time: 0.18 sec Doppler Measurements & Calculations MV E max sahil: 63.9 cm/sec Lat Peak E' Sahil: 8.0 cm/sec Med Peak E' Sahil: 7.2 cm/sec MV A max sahil: 96.9 cm/sec E/E' lat: 8.0 E/E' med: 8.9 MV E/A: 0.66 MV V2 max: 91.8 cm/sec MV P1/2t max sahil: 94.4 cm/sec Ao V2 max: 153.2 cm/sec MV max P.4 mmHg MV P1/2t: 70.7 msec Ao max P.4 mmHg MV V2 mean: 52.7 cm/sec MV dec slope: 391.2 cm/sec2 Ao V2 mean: 98.7 cm/sec MV mean P.3 mmHg Ao mean P.6 mmHg MV V2 VTI: 29.3 cm MVA(P1/2t): 3.1 cm2 Ao V2 VTI: 37.6 cm AV (velocity ratio): 0.74 AI max sahil: 358.5 cm/sec LV V1 max: 97.8 cm/sec PA V2 max: 71.6 cm/sec AI max P.5 mmHg LV V1 max P.8 mmHg PA V2 mean: 48.8 cm/sec AI dec slope: 153.3 cm/sec2 LV V1 mean P.4 mmHg AI P1/2t: 684.9 msec LV V1 mean: 73.0 cm/sec LV V1 VTI: 27.6 cm TR max sahil: 219.8 cm/sec TR max P.3 mmHg ECHO/Echo Complete Interpretation Summary Normal LV size. Left ventricular systolic function is normal. Stage 1 diastolic dysfunction. The left ventricular ejection fraction is 60 %. Mild to moderately dilated aortic root. Mild (1+) aortic valve insufficiency. Mild focal aortic valve calcification. Ordering Physician: Christ Long Referring Physician: Keisha Briscoe Performed By: Ailyn Molina, GI, RVT
== END | disposition home or self-care (01) ==
LOC: CVS 10:57
PROVIDERS: PCP Internal Medicine; Referring Provider Internal Medicine Cardiovascular Disease; Visit Provider Internal Medicine Cardiovascular Disease
DX: I35.1 Nonrheumatic aortic (valve) insufficiency (principal)
CPT/HCPCS: 93306

== ENCOUNTER → 2023-07-30 | Outpatient (CLI) | payer MEDICARE, SELFPAY ==
--- NOTE | 2023-07-30 15:17 | US_ITS ---
INDICATION: BPH EXAMINATION: Ultrasound US Post Void Residual Urine/Bladder TECHNIQUE: Gillis scale and color doppler imaging was performed of the urinary bladder. COMPARISON: No relevant prior comparison study available FINDINGS: Minimally distended bladder without wall thickening. No calculi. Pre-void volume is 184 mL. Post-void volume is 120 mL. Enlarged prostate measures 7.2 x 7 x 4.7 cm. US/Post Void Residual Bladder IMPRESSION: Prostatomegaly. Post void residual bladder volume of 120 mL. Electronically Signed: Eliseo Morales MD at 23:19 EDT ,
== END | disposition home or self-care (01) ==
LOC: US 15:15
PROVIDERS: PCP Internal Medicine; Referring Provider Internal Medicine; Visit Provider Internal Medicine
DX: N40.1 Benign prostatic hyperplasia with lower urinary tract symptoms (principal)
CPT/HCPCS: 51798

== ENCOUNTER → 2023-10-24 | Outpatient (CLI) | payer MEDICARE, SELFPAY ==
--- NOTE | 2023-10-24 14:54 | CT_ITS ---
STUDY: CTA CHEST REASON FOR EXAM: Male, 88 years old. TAA RADIATION DOSAGE (If Supplied By Facility): CTDIvol = ( 16.11 ) mGy, DLP = ( 537.26 ) mGycm TECHNIQUE: The examination was performed with the intravenous administration of IV 100mL Isovue-370. Post-processing of the angiographic images was performed, with multiplanar reformation and 3D reconstruction. Individualized dose optimization techniques were used for this CT. COMPARISON: Comparison is made with prior study dated October 08, 2022. FINDINGS: Normal enhancement of the main pulmonary artery and right and left pulmonary arteries. Normal enhancement of the bilateral peripheral pulmonary arteries. There is no demonstrated pulmonary embolism. There is aneurysmal dilatation of the ascending aorta. The transverse diameter of the ascending aorta measures 44.3 mm''s. This is essentially unchanged. Scattered calcific plaques of the aortic arch. There is no demonstrated aortic dissection. Normal heart and pericardium. No significant coronary calcification is seen. Normal mediastinum. Normal hilar regions. Normal visualized trachea and bronchi. The lungs are well expanded. Normal pulmonary parenchyma. Normal pleura. Normal chest wall structures. There are degenerative changes of thoracic spine. Stable 2.7 cm hypodensity in the anterior lateral aspect of the right lobe of the liver suggestive of a hemangioma. Fatty infiltration of the liver. CT/CTA Chest W/WO Contrast IMPRESSION: Stable examination. Electronically Signed: Jm Howe MD at 9:07 EDT ,
[2023-10-24 15:32] LABS: CREATININE FINGERSTICK 1.1 mg/dL (0.70-1.30); EGFR FINGERSTICK > 60.0000 mL/min (>60)
== END | disposition home or self-care (01) ==
LOC: CT 14:52
PROVIDERS: PCP Internal Medicine; Referring Provider Physician Assistant Medical; Visit Provider Physician Assistant Medical
DX: Z01.812 Encounter for preprocedural laboratory examination (principal); I71.21 Aneurysm of the ascending aorta, without rupture
CPT/HCPCS: 71275; Q9967

== ENCOUNTER → 2023-10-29 | Outpatient (CLI) | payer MEDICARE, SELFPAY ==
--- NOTE | 2023-10-29 17:32 | STRESSREP_ITS ---
Stress Test Report Exercise myocardial perfusion stress test. 88-year-old man with a history of chest pain Stress protocol: Resting EKG demonstrates normal sinus rhythm with a first-degree AV block and a rate of 62 bpm resting blood pressure is 128/70 mmHg. The patient exercised according to the regular Luis protocol for a total duration of 7 minutes attain ing a maximum heart rate of 102 bpm which was 76% of maximum predicted heart rate; the maximum workload was 7 metabolic equivalents. At rest there were no ST or T wave changes noted to suggest ischemia and at peak exercise upsloping ST changes only were noted which did not meet the criteria for ischemia. No clinical angina was noted the test was terminated due to the target heart rate being achieved/fatigue. The peak blood pressure was 140/66 mmHg. Rate-pressure product was 12,000. Myocardial perfusion protocol. 11.1 mCi of technetium 99m sestamibi was injected at rest. The patient exerc ised according to regular Luis protocol for total duration of 7 minutes and at peak exercise 33.7 mCi of technetium 99m sestamibi was injected stress images were obtained stress and rest images were reconstructed in comparing the short axis vertical long and horizontal long axis. Gated images were also obtained. Perfusion SPECT analysis: Review of the stress images demonstrate normal uptake of tracer noted in all areas of the myocardium. The resting images similarly demonstrate normal uptake of tracer noted in all areas of the myocardium. No areas of reversibility are noted to suggest ischemia no previous infarct was noted. Gated SPECT analysis: The gated ejection fraction is 63. Conclusion: Normal exercise myocardial perfusion stress test at a moderate work load Preserved ejection fraction.
== END | disposition home or self-care (01) ==
LOC: CVS 06:52
PROVIDERS: PCP Internal Medicine; Referring Provider Physician Assistant Medical; Visit Provider Physician Assistant Medical
DX: R53.83 Other fatigue (principal); I35.1 Nonrheumatic aortic (valve) insufficiency; E78.00 Pure hypercholesterolemia, unspecified; R06.09 Other forms of dyspnea
CPT/HCPCS: 78452; 93017; A9500; A4216

== ENCOUNTER → 2023-11-09 | Outpatient (CLI) | payer MEDICARE, SELFPAY ==
--- NOTE | 2023-11-09 10:45 | US_ITS ---
STUDY: SCROTUM ULTRASOUND REASON FOR EXAM: Male, 88 years old. Right-sided pain TECHNIQUE: Ultrasound evaluation of the scrotum was performed with color Doppler and static bowers-scale imaging. COMPARISON: None. FINDINGS: RIGHT TESTICLE INTRATESTICULAR: There is a normal size of the right testicle. The right testicle measures 4.2 x 2.4 x 1.9 cm. There is a homogenous echotexture. There is normal arterial and normal venous vascularity. There is no demonstrated right testicular mass or cyst. EXTRATESTICULAR: The epididymis is normal in size. The epididymis head measures 1.3 cm. There is normal vascularity of the epididymis. There are well-defined cystic structures within the epididymis, without internal echoes, consistent with epididymal cysts. There is a moderate sized hydrocele with echogenic debris. There is no demonstrated varicocele. There is no demonstrated extratesticular mass or cyst. LEFT TESTICLE INTRATESTICULAR: There is a normal size of the left testicle. The left testicle measures 4.2 x 2.7 x 1.7 cm. There is a homogenous echotexture. There is normal arterial and normal venous vascularity. There is no demonstrated left testicular mass or cyst. EXTRATESTICULAR: The epididymis is normal in size. The epididymis head measures 1.0 cm. There is normal vascularity of the epididymis. There are well-defined cystic structures within the epididymis, without internal echoes, consistent with epididymal cysts. There is a moderate size hydrocele with echogenic debris. There is no demonstrated varicocele. There is no demonstrated extratesticular mass or cyst. US/Testicular with Arterial Flow IMPRESSION: Normal bilateral testicles, no sonographic evidence of intratesticular mass or torsion. Bilateral epididymal cysts Moderate bilateral hydroceles Electronically Signed: Jay Bach MD at 15:38 EDT ,
== END | disposition home or self-care (01) ==
LOC: US 10:43
PROVIDERS: PCP Internal Medicine; Referring Provider Internal Medicine; Visit Provider Internal Medicine
DX: N50.811 Right testicular pain (principal)
CPT/HCPCS: 76870; 93976

== ENCOUNTER → 2024-03-25 | Outpatient (CLI) | payer MEDICARE, SELFPAY ==
--- NOTE | 2024-03-25 14:08 | RAD_ITS ---
PROCEDURE: CHEST PA AND LATERAL REASON FOR EXAM: Cough for 3 days. TECHNIQUE: Single frontal image including the chest. COMPARISON: CTA chest dated 10/24/2023. FINDINGS: Lungs are clear of pneumonia and congestion. Old healed granulomatous changes. No pleural effusions, thickening, or pneumothorax. Heart and mediastinum are normal. Aorta is atherosclerotic and tortuous. No hilar masses. Bones and soft tissues are unremarkable. RAD/Chest PA and Lateral IMPRESSION: No active cardiopulmonary disease. Reading Location: [facility]
== END | disposition home or self-care (01) ==
LOC: MTRAD 14:05
PROVIDERS: PCP Internal Medicine; Referring Provider Nurse Practitioner; Visit Provider Nurse Practitioner
DX: R05.1 Acute cough (principal)
CPT/HCPCS: 71046

== ENCOUNTER 2024-05-18 03:15 | Emergency (ER) | payer MEDICARE, SELFPAY ==
[2024-05-18] VITALS (12 sets, daily range): BP systolic 138–163; BP diastolic 53–97; PULSE 55–63; RESP 12–22; TEMP 36.6–36.7; O2SAT 94–97; BMI 28.1
--- NOTE | 2024-05-18 03:38 | EKG12_ITS ---
Test Reason : CP Blood Pressure : */* mmHG Vent. Rate : 60 BPM Atrial Rate : 60 BPM P-R Int : 266 ms QRS Dur : 80 ms QT Int : 396 ms P-R-T Axes : 26 -16 18 degrees QTcB Int : 396 ms Sinus rhythm with 1st degree A-V block Otherwise normal ECG Confirmed by JANETTE NINA, JACINTA ([id number]), supervising editor trailer MARLYN MATA ([id number]) on 05/19/2024 8:35:10 AM Referred By: Confirmed By: JACINTA SAVAGE MD
--- NOTE | 2024-05-18 03:39 | CT_ITS ---
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 Coronal and Sagittal reconstruction series were provided. 3D, 3D post processing, 3D reconstructions, Maximum intensity projection (MIPs) Volume rendering and Shaded surface rendering was provided. CONTRAST: 99 cc Isovue 370 contrast intravenously One or more dose reduction techniques were used (e.g., Automated exposure control, adjustment of the mA and/or kV according to patient size, use of iterative reconstruction technique). RADIATION DOSE SUMMARY: CTDlvol: 47.49 mGy DLP: 556.10 mGycm COMPARISON: 10/24/2023 and 06/28/2021 FINDINGS: Ascending thoracic aorta measures 4.1 cm, not significantly changed. No thoracic aortic dissection. Descending thoracic aorta 2.7 cm. There is an again note of undulation of the great vessels with calcific plaque, kinking and some post stenotic appearing dilation of the proximal right subclavian artery with contrast beyond and not significantly changed from the prior study. No pericardial effusion. Some mild coronary calcification noted. No pleural effusion. No evidence of filling defect to suggest pulmonary embolism. The central airways appear patent. The lungs appear clear. Sequela of previous granulomatous disease again noted. 3 cm low-density subcapsular focus within the liver not significantly changed in size and has been associated with suggested peripheral contrast nodular foci consistent with suggesting cavernous hemangioma. A 2 cm ovoid soft tissue lesion along the anterior wall of the stomach axial 40 is again seen not significantly changed in size since 2021. May follow-up with nonemergent GI consult if not already previously evaluated. Cervical spondylosis/discogenic change again noted. CT/CTA Chest W/WO Contrast IMPRESSION: Ascending thoracic aorta measures 4.1 cm, not significantly changed. No thorac ic aortic dissection. Descending thoracic aorta 2.7 cm. A 2 cm ovoid soft tissue lesion along the anterior wall of the stomach axial 40 is again seen not significantly changed in size since 2021. May follow-up with nonemergent GI consult if not already previously evaluated. Reading Location: [id number]
[2024-05-18] MEDS: 0.9% Normal Saline (500mL Bag) 500 ML 999 ML IV (03:44)
[2024-05-18 03:48] LABS: Absolute Lymphocyte Count 1.09 X10^3/uL (0.83-4.51); Basophil# 0.08 X10^3/uL; Basophil% 1.3 % (0-1); Eosinophil# 0.36 X10^3/uL; Eosinophils% 5.8 % (0-5); Hematocrit 39.8 % (40-54); Hemoglobin 13.3 g/dL (13.0-16.5); Lymphocyte # 1.09 X10^3/ul (0.83-4.51); Lymphocyte % 17.7 % (19-41); Mean Corp Hgb Conc 33.4 g/dL (32-36); Mean Corpuscular Hgb 30.6 pg (27.0-32.0); Mean Corpuscular Volume 91.5 fL (80-94); Monocyte# 0.64 X10^3/uL; Monocyte% 10.4 % (0-10); NRBC Flagged by Analyzer 0 % (0-5); Neutrophil # 3.97 X10^3/uL (2.7-7.7); Neutrophil % 64.5 % (47-70); Platelet Count 195 K/mm3 (150-450); RBC Distribution Width CV 13.1 % (11.6-14.6); RBC Distribution Width SD 43.8 fl (35.1-43.9); Red Blood Count 4.35 M/mm3 (4.6-6.2); White Blood Count 6.2 K/mm3 (4.4-11.0)
[2024-05-18 04:03] LABS: Prothrombin Time (Protime)PT. 13.2 SECONDS (11.7-14.9)
[2024-05-18 04:04] LABS: Partial Thromboplast Time 29.6 Seconds (24.1-36.2)
[2024-05-18 04:11] LABS: Magnesium 2.4 mg/dL (1.5-2.2); Troponin T High Sensitivity 11 ng/L (<=22)
[2024-05-18 04:25] LABS: Anion Gap 11 (5-15); BUN 22 mg/dL (4-19); BUN/Creat Ratio 23.8 RATIO (10-20); Carbon Dioxide 23.3 mmol/L (21.0-32.0); Chloride 107 mmol/L (98-108); Creatinine, Serum 0.91 mg/dL (0.70-1.20); EST Glomerular Filtration Rate 82 (>60); Estimated Creatinine Clearance 60.38 ml/min (50-250); Glucose 113 mg/dL (70-99); Potassium 4.1 mmol/L (3.3-5.1); Sodium Level 141 mmol/L (133-145)
[2024-05-18 05:46] LABS: Troponin T High Sens 2 HR 10 ng/L (<=22)
--- NOTE | 2024-05-18 05:58 | EX.ED.DYSGE1 ---
HPI History of Present Illness Chief Complaint: Chest Pain Informant: patient and spouse/S.O. Narrative Narrative: Patient is an 89-year-old male with past medical history of hypertension hyperlipidemia coronary artery disease and thoracic aortic aneurysm. He also reports he has a left rotator cuff injury. He states that occasionally while he sleeps the rotator cuff will cause pain but if he rolls over and moves in different direction symptoms seem to resolve. He states he went to bed feeling normal then awoke with pain along the left shoulder and back region. He states he thought it was his rotator cuff acting up again and therefore he changed positions and took Tylenol but states that there was no symptom improvement. He states a few hours later he went downstairs and the pain suddenly worsened and caused nausea and diaphoresis. With concern this could be cardiac in nature he presents for evaluation. Of note the patient states that upon arrival to the ER the pain seems to be suddenly improving. [facility] Medical History (Updated 05/18/24 @ 06:[address] Gerald Emerson, DO) Acute cough Fatigue High cholesterol Aortic dilatation Wears dentures GERD (gastroesophageal reflux disease) Cough Wears hearing aid Wears glasses Arthritis Prostate disease Easy bruising Restless legs TIA (transient ischemic attack) Dietary restriction Difficulty swallowing Non-smoker Shortness of breath on exertion Pain History of pain when walking History of echocardiogram History of stress test Hypertension Cardiology follow-up encounter Dysphagia Right groin pain Carotid stenosis, bilateral TIA (transient ischemic attack) Pure hypercholesterolemia Essential hypertension BPH (benign prostatic hyperplasia) Hypertension Osteoarthritis Thoracic aortic aneurysm without rupture Nonrheumatic aortic valve insufficiency Home Medications ?Medication ?Instructions ?Recorded ?Last Taken ?Type aspirin 81 mg chewable tablet 81 mg PO DAILY@0800 heart [facility] 04/14/16 Unknown History tamsulosin 0.4 mg capsule 0.4 mg PO QDAY prostate 01/22/17 Unknown History cholecalciferol (vitamin D3) 10 10 mcg PO DAILY 03/11/20 Unknown History mcg (400 unit) chewable tablet (Kids Vitamin D3) melatonin 5 mg capsule 5 mg PO QHS PRN Sleep 03/11/20 Unknown History metoprolol tartrate 25 mg tablet 12.5 mg PO BID 03/11/20 11/27/22 10:20 History omega-3 fatty acids 1,000 mg 1,000 mg PO DAILY 03/11/20 Unknown History capsule (Fish Oil Concentrate) ascorbic acid (vitamin C) 1,000 mg 1 g PO DAILY 09/26/20 Unknown History tablet magnesium oxide 400 mg PO DAILY 09/26/20 Unknown History Prostate B 3 cap PO/SL DAILY 12/19/20 Unknown History citalopram 10 mg tablet 10 mg PO DAILY 09/18/22 11/27/22 10:20 History rosuvastatin 5 mg tablet 5 mg PO DAILY 09/18/22 Unknown History coenzyme Q10 200 mg capsule 200 mg PO QDAY 03/25/24 Unknown History carboxymethylcellulose sodium 1 % 1 drp EACH EYE .weekly 05/18/24 Unknown History eye drops (Artificial Tears (carboxymethylcellulose)) Allergy/AdvReac Type Severity Reaction Status Date / Time Penicillins Allergy Unknown Verified 05/18/24 03:18 Family History Father CAD (coronary artery disease) Diabetes Mother CAD (coronary artery disease) CHF (congestive heart failure) Sister Hypertension Cancer leukemia Surgical History History of esophagogastroduodenoscopy (EGD) History of cardiac catheterization History of right-sided carotid endarterectomy History of sinus surgery History of colonoscopy (~2015) History of cataract extraction H/O hemorrhoidectomy H/O hernia repair Social History Smoking Status: Never smoker alcohol intake: never substance use type: does not use what type of physical activity do you participate in: walking frequency: daily duration: 30-45 minutes/day ROS ROS ED Constitutional Constitutional ED: Reports sweats; Denies chills or fever(s) Eyes Eyes: Denies blurry vision or change in vision ENT ENT ED: Denies sore throat Cardiovascular Cardiovascular: Reports chest pain; Denies palpitations or racing heartbeat Respiratory/Chest Respiratory/Chest: Denies cough or dyspnea Gastrointestinal Gastrointestinal: Reports nausea; Denies abdominal pain, diarrhea or vomiting Genitourinary Genitourinary ED: Denies dysuria Musculoskeletal Musculoskeletal: Reports back pain Integumentary Denies rash Neurologic Neurologic: Denies headache(s) Hematologic/Lymphatic Hematologic/Lymphatic: Denies easy bleeding or easy bruising EXAM Physical Exam Const Vital Signs: 05/18/24 03:19 05/18/24 03:31 05/18/24 03:45 Temperature 98.0 F Temperature Source Temporal Pulse Rate 63 60 Respiratory Rate 19 H 15 Blood Pressure 163/80 H 142/61 H Blood Pressure Mean 107 83 Pulse Ox 97 97 Oxygen Delivery Method Room Air 05/18/24 04:00 05/18/24 04:10 05/18/24 04:15 Temperature Temperature Source Pulse Rate Respiratory Rate Blood Pressure 146/53 H Blood Pressure Mean 76 Pulse Ox 94 95 Oxygen Delivery Method 05/18/24 04:16 05/18/24 04:30 05/18/24 04:45 Temperature Temperature Source Pulse Rate 57 L 57 L 60 Respiratory Rate 17 12 22 H Blood Pressure 155/97 H 155/97 H Blood Pressure Mean 116 110 Pulse Ox 94 96 96 Oxygen Delivery Method 05/18/24 05:00 Temperature Temperature Source Pulse Rate 55 L Respiratory Rate 16 Blood Pressure 147/56 H Blood Pressure Mean 83 Pulse Ox 95 Oxygen Delivery Method Positive well nourished and well developed General Appearance ED: well developed; Negative for pallor HEENT HEENT Narrative: Normocephalic atraumatic Eyes PERRL and EOMs intact bilaterally General Eye ED: Negative for scleral icterus Neck supple and no JVD Chest Wall palpation of chest normal Chest Narrative: No bony deformity or subcutaneous emphysema noted Resp normal respiratory effort and clear to auscultation bilaterally Cardio regular rate and regular rhythm Rate: other Other Details: Regular rate and rhythm Radial and carotid pulses are equal and symmetric There is a grade 3 out of 6 systolic murmur noted GI normal to inspection, nondistended, normoactive bowel sounds, non-tender, non-distended and no masses GI Narrative: No voluntary guarding or rigidity or pulsatile mass Auscultation: normoactive bowel sounds Palpation: soft Back/Spine no CVA tenderness Extremity normal to inspection Extremity Narrative: No asymmetric edema no pitting edema negative Homans' sign bilaterally Neuro oriented x3, CN's II-XII intact bilaterally and no sensory deficits noted Sensorium / Orientation: alert Motor Exam: strength 5/5 throughout Psych mental status grossly normal Skin no rashes or lesions noted and no wounds General Skin Exam: Negative for jaundice or pallor MDM MDM MDM Narrative Medical decision making narrative: Patient arrived to the ER hypertensive otherwise with stable vitals. He reported spontaneous improvement of pain upon arrival as well. There is potential this could just be a an exacerbation of his left rotator cuff injury. However based on his complex medical history this could be acute coronary syndrome versus a thoracic aortic dissection. Patient could also have atypical presentation for a pulmonary embolus or pneumonia. Secondary to his basic labs were obtained and a CTA of the chest was ordered as well. EKG showed sinus rhythm without ischemic changes or dysrhythmia changes. Lab work revealed no clinically significant findings such as electrolyte abnormality anemia or TRIPP. Initial troponin was 11 the delta was flat at a value of 10 going against acute coronary syndrome. The CTA confirmed his thoracic aortic aneurysm but it is stable in size without dissection nor is there a PE or pneumonia noted. The patient's pain remained spontaneously resolved while in the ER and his blood pressure improved as well. At this time as symptoms have spontaneously improved his workup does not reveal any signs of ACS or dissection or PE there is no need for further inpatient evaluation and he is otherwise safe for discharge. History & Record Review Discussion w/independent historian: Patient and Significant other Lab Data Attestation: I reviewed the patient's lab results. Labs: Laboratory Results - last 24 hr 05/18/24 05/18/24 03:25 05:21 WBC 6.2 RBC 4.35 L Hgb 13.3 Hct 39.8 L MCV 91.5 MCH 30.6 MCHC 33.4 RDW Std Deviation 43.8 RDW Coeff of Mt 13.1 Plt Count 195 MPV 10.0 Immature Gran % (Auto) 0.300 Neut % (Auto) 64.5 Lymph % (Auto) 17.7 L [place] % (Auto) 10.4 H Eos % (Auto) 5.8 H Baso % (Auto) 1.3 H Absolute Neuts (auto) 4.0 Absolute Lymphs (auto) 1.09 Nucleated RBC % 0 PT 13.2 INR 1.0 APTT 29.6 Sodium 141 Potassium 4.1 Chloride 107 Carbon Dioxide 23.3 Anion Gap 11 BUN 22 H Creatinine 0.91 Estim Creat Clear Calc 60.38 Est GFR (MDRD) Non-Af 82 BUN/Creatinine Ratio 23.8 H Glucose 113 H Calcium 9.0 Magnesium 2.4 H Troponin T High Sens 11 Troponin T Hi Sens 2 Hr 10 Radiography Diagnostic Testing: Clinical Impression(s) from Imaging Studies Chest CTA 05/18/24 03:39 IMPRESSION: Ascending thoracic aorta measures 4.1 cm, not significantly changed. No thoracic aortic dissection. Descending thoracic aorta 2.7 cm. A 2 cm ovoid soft tissue lesion along the anterior wall of the stomach axial 40 is again seen not significantly changed in size since 2021. May follow-up with nonemergent GI consult if not already previously evaluated. Reading Location: [facility] Discharge Plan Triage Chief Complaint: Chest Pain ED Provider: Gerald Emerson Dx/Rx/DC Orders Clinical Impression: Nonspecific chest pain, Thoracic aortic aneurysm, Essential hypertension, Dyslipidemia, GERD (gastroesophageal reflux disease) Instructions: ED Chest Pain, Uncertain Cause, Thoracic Aortic Aneurysm Prescriptions: No Action tamsulosin 0.4 mg capsule,extended release 24hr 0.4 mg PO QDAY melatonin 5 mg capsule 5 mg PO QHS PRN (Reason: Sleep) omega-3 fatty acids [Fish Oil Concentrate] 1,000 mg capsule 1,000 mg PO DAILY cholecalciferol (vitamin D3) [Kids Vitamin D3] 10 mcg (400 unit) tablet,chewable 10 mcg PO DAILY metoprolol tartrate 25 mg tablet 12.5 mg PO BID magnesium oxide 400 mg magnesium capsule 400 mg PO DAILY ascorbic acid (vitamin C) 1,000 mg tablet 1 g PO DAILY citalopram 10 mg tablet 10 mg PO DAILY rosuvastatin 5 mg tablet 5 mg PO DAILY Patient Comments: TAKE 1 TABLET BY MOUTH IN THE MORNING coenzyme Q10 200 mg capsule 200 mg PO QDAY aspirin 81 MG tablet,chewable 81 mg PO DAILY@0800 Prostate B 3 cap PO/SL DAILY Artificial Tears (cmc) 1 % drops 1 drp EACH EYE .weekly Primary Care Provider: Keisha Briscoe Referrals: Keisha Briscoe MD [Primary Care Provider] - Activity Restrictions/Additional Instructions: Your CT scan displayed that your aneurysm is stable without tear or rupture. Your EKG was sinus rhythm going against heart attack and your blood test for the heart to troponins have been normal as well going against active heart damage. Continue all of your home medications as directed by your doctor and return to the ER should you have any further concerns Print Language: Lao Disposition Disposition: Home, Self Care Discharge Date/Time: 05/18/24 06:07
== END 2024-05-18 06:07 | disposition home or self-care (01) ==
PROVIDERS: Emergency Provider Emergency Medicine; PCP Internal Medicine; Visit Provider Emergency Medicine
DX: R07.9 Chest pain, unspecified (principal); K21.9 Gastro-esophageal reflux disease without esophagitis; E78.5 Hyperlipidemia, unspecified; I71.20 Thoracic aortic aneurysm, without rupture, unspecified; I25.10 Atherosclerotic heart disease of native coronary artery without angina pectoris; Z86.73 Personal history of transient ischemic attack (TIA), and cerebral infarction without residual deficits; N40.0 Benign prostatic hyperplasia without lower urinary tract symptoms; Z79.899 Other long term (current) drug therapy; Z79.82 Long term (current) use of aspirin; Z98.49 Cataract extraction status, unspecified eye
CPT/HCPCS: 71275; 80048; 83735; 84484; 85025; 85610; 85730; 93005; 96360; 99282; Q9967; A4216

== ENCOUNTER 2024-05-25 12:48 | Day surgery (SDC) | payer MEDICARE, SELFPAY ==
--- NOTE | 2024-05-22 12:08 | PAT.ANESEVAL ---
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 When Was Last Pacemaker Check QUESTION #4 FULL TEXT: You/Your Family Experience fever (hyperthermia) with Anesthesia Last Oral Intake Last Oral intake: Last Oral Intake NPO since Meds taken in AM with sips of water? Meds patient instructed to take am of surgery PONV PONV - lead based paint technician: PONV - lead based paint technician Female No 05/22/24 09:22 HX of Motion Sickness Yes 05/22/24 09:22 HX of N/V After Surgery No 05/22/24 09:22 Non-Smoker Yes 05/22/24 09:22 Duration of Surgery greater No 05/22/24 09:22 than 60 minutes Number of Risk Factors 2 05/22/24 09:22 PONV Score Moderate Risk 05/22/24 09:22 Height & Weight Height & Weight: Anesthesia: Height & Weight Height 5 ft 8 in 05/18/24 03:19 Respiratory Assessment Respiratory Assessment - lead based paint technician: Respiratory Tract Infection Hx - lead based paint technician Hx Respiratory Tract Infection No 05/22/24 09:22 STOP Sleep Apnea STOP Sleep Apnea - lead based paint technician: STOP Sleep Apnea - lead based paint technician Hx Hypertension Yes: CONTROLLED WITH MED 05/22/24 09:22 Hx Sleep Apnea Yes 05/22/24 09:22 CPAP Yes 05/22/24 09:22 BIPAP No 05/22/24 09:22 Do you snore loudly (louder than talking or can be heard Do you often feel tired/ fatigued/ sleepy during daytime? Has anyone observed you stop breathing during sleep? STOP Results Positive 05/22/24 09:22 QUESTION #5 FULL TEXT : Do you snore loudly (louder than talking or can be heard through closed doors)? Tobacco Use History Tobacco Use History - lead based paint technician: Tobacco Use History - lead based paint technician Tobacco Use Smoking Status Never smoker 05/22/24 09:22 Hx Tobacco Use No 05/22/24 09:22 Years Smoking Packs Smoked per Day Smoking Cessation Date was within the last 15 years Hx Smoking Cessation Date Hx Smoking Cessation Counseling Hematologic Medial History Hematologic Hx - lead based paint technician: Hematologic Medical Hx - seat mender Hx of Blood Transfusion No 05/22/24 09:22 Hx of Transfusion in last 3 No 05/22/24 09:22 Months Date of Last Transfusion (if within last 3 months) Ever experience any problems No 05/22/24 09:22 with transfusion(s)? Specify any problems Hx of Preganancy in last 3 N/A 05/22/24 09:22 Months Nurse Filling Out Transfusion DSCHRIBER 05/22/24 09:22 & Questions: Date: 05/22/24 05/22/24 09:22 Time: 09:23 05/22/24 09:22 Patient unable to answer at this time (ie. confused, unrespo /Reproduction History /Reproductive History - lead based paint technician: /Reproductive Hx- lead based paint technician Hx Now No 05/22/24 09:22 Gestational Age (in weeks): EDC: Hx Hx Para Hx Section SAB No 05/22/24 09:22 [facility] Medical History (Updated 05/22/24 @ 09:29 by Juany Valdivia) CPAP (continuous positive airway pressure) dependence Acute cough High cholesterol Aortic dilatation GERD (gastroesophageal reflux disease) Cough Wears hearing aid Wears glasses Arthritis Prostate disease Restless legs TIA (transient ischemic attack) Difficulty swallowing Non-smoker Shortness of breath on exertion Pain History of echocardiogram History of stress test Hypertension Cardiology follow-up encounter Dysphagia Right groin pain Carotid stenosis, bilateral TIA (transient ischemic attack) Pure hypercholesterolemia BPH (benign prostatic hyperplasia) Fatigue Hypertension Osteoarthritis Thoracic aortic aneurysm without rupture Nonrheumatic aortic valve insufficiency Home Medications ?Medication ?Instructions ?Recorded ?Last Taken ?Type aspirin 81 mg chewable tablet 81 mg PO DAILY@0800 heart health 04/14/16 Unknown History tamsulosin 0.4 mg capsule 0.8 mg PO QHS prostate 01/22/17 Unknown History cholecalciferol (vitamin D3) 10 10 mcg PO DAILY 03/11/20 Unknown History mcg (400 unit) chewable tablet (Kids Vitamin D3) melatonin 5 mg capsule 5 mg PO QHS PRN Sleep 03/11/20 Unknown History metoprolol tartrate 25 mg tablet 12.5 mg PO BID 03/11/20 11/27/22 10:20 History omega-3 fatty acids 1,000 mg 1,000 mg PO DAILY 03/11/20 Unknown History capsule (Fish Oil Concentrate) ascorbic acid (vitamin C) 1,000 mg 1 g PO DAILY 09/26/20 Unknown History tablet magnesium oxide 400 mg PO DAILY 09/26/20 Unknown History Prostate B 3 cap PO/SL DAILY 12/19/20 Unknown History citalopram 10 mg tablet 10 mg PO DAILY 09/18/22 11/27/22 10:20 History rosuvastatin 5 mg tablet 5 mg PO DAILY 09/18/22 Unknown History coenzyme Q10 200 mg capsule 200 mg PO QDAY 03/25/24 Unknown History carboxymethylcellulose sodium 1 % 1 drp EACH EYE .weekly 05/18/24 Unknown History eye drops (Artificial Tears (carboxymethylcellulose)) Allergy/AdvReac Type Severity Reaction Status Date / Time Penicillins Allergy Unknown Verified 05/22/24 09:20 Family History Father CAD (coronary artery disease) Diabetes Mother CAD (coronary artery disease) CHF (congestive heart failure) Sister Hypertension Cancer leukemia Surgical History (Updated 05/22/24 @ 09:29 by Juany Valdivia) Hx of oral surgery History of esophagogastroduodenoscopy (EGD) History of cardiac catheterization History of right-sided carotid endarterectomy History of sinus surgery History of colonoscopy (~2015) History of cataract extraction H/O hemorrhoidectomy H/O hernia repair Social History Smoking Status: Never smoker alcohol intake: never substance use type: does not use what type of physical activity do you participate in: walking frequency: daily duration: 30-45 minutes/day Audit: Pertinent Findings Pertinent Findings EKG Perinent findings: May 18, 2024. Sinus rhythm with first-degree AV block. Stress test pertinent findings: October 29, 2023. Ejection fraction 63%. No areas of reversibility are noted to suggest ischemia. No previous infarct is noted. Echo (EF%) pertinent findings: May 06, 2023. Ejection fraction 60%. No aortic stenosis is noted. Consult pertinent findings: October 07, 2023. Deyanira BRENNER. 1. Thoracic aortic aneurysm without rupture-ascending thoracic aorta last examined September [address] scan. Showed stable measurement of 4.5 cm. No evidence of dissection. No acute pulmonary findings. 2. Nonrheumatic aortic valve insufficiency-1+ aortic insufficiency in the face of dilated aneurysmal thoracic aorta. History of hypertension but blood pressure is well-controlled. Patient is complaining of dyspnea on exertion which is new. 3. Hypertension?chronic?well-controlled. 4. Carotid artery disease patient is status post right internal carotid endarterectomy. Patient has ultrasounds done yearly. 5. Fatigue-this could be an anginal component. Will get a stress. Open (see above) Recommendation Anesthesia Recommendation Anesthesia recommendation: OPTIMIZED for anesthesia
[2024-05-25] VITALS (7 sets, daily range): BP systolic 98–141; BP diastolic 54–66; PULSE 59–68; RESP 14–16; TEMP 36.5–36.7; O2SAT 94–96; BMI 28.1
--- NOTE | 2024-05-25 12:41 | PRE.ANES_ITS ---
ASA Classification* ASA Classification ASA Classification: 3 Assessment & Plan Anesthesia* Anesthesia Assessment Anesthesia Assessment: Discussed sedation and/or anesthesia options, risks, benefits, and alternatives with patient/parents/legal guardian/POA. Questions invited. The patient/parents/legal guardian/POA seems to understand and agrees to proceed with anesthesia plan. Reviewed the physical assessment, medical history, allergy history and patient home medications list prior to surgery/procedure/anesthetic and documented any changes. Performed airway and anesthesia risk assessments. Anesthesia Type Anesthesia Type: MAC Anesthesia Focused Assessment* Airway Assessment Mouth opens: >3 cm Mallampati Score: II Focused Labs Anesthesia Preop lab: CBC WBC 6.2 K/mm3 (4.4-11.0) 05/18/24 03:25 05/18/24 RBC 4.35 M/mm3 (4.6-6.2) L 05/18/24 03:25 05/18/24 Hgb 13.3 g/dL (13.0-16.5) 05/18/24 03:25 05/18/24 Hct 39.8 % (40-54) L 05/18/24 03:25 05/18/24 Plt Count 195 K/mm3 (150-450) 05/18/24 03:25 05/18/24 CHEMISTRY Potassium 4.1 mmol/L (3.3-5.1) 05/18/24 03:25 05/18/24 Sodium 141 mmol/L (133-145) 05/18/24 03:25 05/18/24 Magnesium 2.4 mg/dL (1.5-2.2) H 05/18/24 03:25 05/18/24 BUN 22 mg/dL (4-19) H 05/18/24 03:25 05/18/24 Creatinine 0.91 mg/dL (0.70-1.20) 05/18/24 03:25 05/18/24 Glucose 113 mg/dL (70-99) H 05/18/24 03:25 05/18/24 POC Glucose 104 mg/dL (70-110) 01/01/19 07:02 01/01/19 TSH 1.91 uIU/mL (0.358-3.74) 01/01/19 07:15 COAG PT 13.2 SECONDS (11.7-14.9) 05/18/24 03:25 Pre-Assessment Diagnosis/Proposed Procedure Planned Operative Procedure(s): EGD Anesthesia History 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 When Was Last Pacemaker Check QUESTION #4 FULL TEXT: You/Your Family Experience fever (hyperthermia) with Anesthesia Last Oral Intake Last Oral intake: Last Oral Intake NPO since Meds taken in AM with sips of water? 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 boat operator Female No 05/22/24 09:22 HX of Motion Sickness Yes 05/22/24 09:22 HX of N/V After Surgery No 05/22/24 09:22 Non-Smoker Yes 05/22/24 09:22 Duration of Surgery greater No 05/22/24 09:22 than 60 minutes Number of Risk Factors 2 05/22/24 09:22 PONV Score Moderate Risk 05/22/24 09:22 Height & Weight Height & Weight: Anesthesia: Height & Weight Height 5 ft 8 in 05/18/24 03:19 Respiratory Assessment Respiratory Assessment - special warfare boat operator: Respiratory Tract Infection Hx - special warfare boat operator Hx Respiratory Tract Infection No 05/22/24 09:22 STOP Sleep Apnea STOP Sleep Apnea - special warfare boat operator: STOP Sleep Apnea - special warfare boat operator Hx Hypertension Yes: CONTROLLED WITH MED 05/22/24 09:22 Hx Sleep Apnea Yes 05/22/24 09:22 CPAP Yes 05/22/24 09:22 BIPAP No 05/22/24 09:22 Do you snore loudly (louder than talking or can be heard Do you often feel tired/ fatigued/ sleepy during daytime? Has anyone observed you stop breathing during sleep? STOP Results Positive 05/22/24 09:22 QUESTION #5 FULL TEXT : Do you snore loudly (louder than talking or can be heard through closed doors)? 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 Specify any problems Hx of Preganancy in last 3 N/A 05/22/24 09:22 Months Nurse Filling Out Transfusion DSCHRIBER 05/22/24 09:22 & Questions: Date: 05/22/24 05/22/24 09:22 Time: 09:23 05/22/24 09:22 Patient unable to answer at this time (ie. confused, unrespo /Reproduction History /Reproductive History - special warfare boat operator: /Reproductive Hx- special warfare boat operator Hx Now No 05/22/24 09:22 Gestational Age (in weeks): EDC: Hx Hx Para Hx Section SAB No 05/22/24 09:22 PFSH Medical History CPAP (continuous positive airway pressure) dependence Acute cough High cholesterol Aortic dilatation GERD (gastroesophageal reflux disease) Cough Wears hearing aid Wears glasses Arthritis Prostate disease Restless legs TIA (transient ischemic attack) Difficulty swallowing Non-smoker Shortness of breath on exertion Pain History of echocardiogram History of stress test Hypertension Cardiology follow-up encounter Dysphagia Right groin pain Carotid stenosis, bilateral TIA (transient ischemic attack) Pure hypercholesterolemia BPH (benign prostatic hyperplasia) Fatigue Hypertension Osteoarthritis Thoracic aortic aneurysm without rupture Nonrheumatic aortic valve insufficiency Home Medications ?Medication ?Instructions ?Recorded ?Last Taken ?Type aspirin 81 mg chewable tablet 81 mg PO DAILY@0800 hear t health 04/14/16 Unknown History tamsulosin 0.4 mg capsule 0.8 mg PO QHS prostate 01/22 Unknown History cholecalciferol (vitamin D3) 10 10 mcg PO DAILY Unknown History mcg (400 unit) chewable tablet (Kids Vitamin D3) melatonin 5 mg capsule 5 mg PO QHS PRN Sleep Unknown History metoprolol tartrate 25 mg tablet 12.5 mg PO BID 11/27/22 10:20 History omega-3 fatty acids 1,000 mg 1,000 mg PO DAILY 1 Unknown History capsule (Fish Oil Concentrate) ascorbic acid (vitamin C) 1,000 mg 1 g PO DAILY Unknown History tablet magnesium oxide 400 mg PO DAILY 09/26/20 Unk nown History Prostate B 3 cap PO/SL DAILY 12/19/20 U nknown History citalopram 10 mg tablet 10 mg PO DAILY 09/18/2211/18 10:20 History rosuvastatin 5 mg tablet 5 mg PO DAILY 09/18/22 Unkno wn History coenzyme Q10 200 mg capsule 200 mg PO QDAY 03/25/24 Un known History carboxymethylcellulose sodium 1 % 1 drp EACH EYE .week ly 05/18/24 Unknown History eye drops (Artificial Tears (carboxymethylcellulose)) Allergy/AdvReac Type Severity Reaction Status Date / Time Penicillins Allergy Unknown Verified 05/22/24 09:20 Family History Father CAD (coronary artery disease) Diabetes Mother CAD (coronary artery disease) CHF (congestive heart failure) Sister Hypertension Cancer leukemia Surgical History Hx of oral surgery History of esophagogastroduodenoscopy (EGD) History of cardiac catheterization History of right-sided carotid endarterectomy History of sinus surgery History of colonoscopy (~2015) History of cataract extraction H/O hemorrhoidectomy H/O hernia repair Social History Smoking Status: Never smoker alcohol intake: never substance use type: does not use what type of physical activity do you participate in: walking frequency: daily duration: 30-45 minutes/day Review of Systems (Anesthesia) ROS Narrative System reviewed and no additional complaints, except as documented.
--- NOTE | 2024-05-25 12:51 | HP.PCM_ITS ---
HPI - General General Date of Admission: 05/25/24 Date of Service: 05/25/24 Chief Complaint: abnormal imaging HPI Narrative MASOOD SIMON, is a 89 M who presents [facility] Medical History CPAP (continuous positive airway pressure) dependence Acute cough High cholesterol Aortic dilatation GERD (gastroesophageal reflux disease) Cough Wears hearing aid Wears glasses Arthritis Prostate disease Restless legs TIA (transient ischemic attack) Difficulty swallowing Non-smoker Shortness of breath on exertion Pain History of echocardiogram History of stress test Hypertension Cardiology follow-up encounter Dysphagia Right groin pain Carotid stenosis, bilateral TIA (transient ischemic attack) Pure hypercholesterolemia BPH (benign prostatic hyperplasia) Fatigue Hypertension Osteoarthritis Thoracic aortic aneurysm without rupture Nonrheumatic aortic valve insufficiency Home Medications ?Medication ?Instructions ?Recorded ?Last Taken ?Type aspirin 81 mg chewable tablet 81 mg PO DAILY@0800 hear [place] 04/14/16 Unknown History tamsulosin 0.4 mg capsule 0.8 mg PO QHS prostate 01/22 Unknown History cholecalciferol (vitamin D3) 10 10 mcg PO DAILY Unknown History mcg (400 unit) chewable tablet (Kids Vitamin D3) melatonin 5 mg capsule 5 mg PO QHS PRN Sleep Unknown History metoprolol tartrate 25 mg tablet 12.5 mg PO BID 11/27/22 10:20 History omega-3 fatty acids 1,000 mg 1,000 mg PO DAILY 1 Unknown History capsule (Fish Oil Concentrate) ascorbic acid (vitamin C) 1,000 mg 1 g PO DAILY Unknown History tablet magnesium oxide 400 mg PO DAILY 09/26/20 Unk nown History Prostate B 3 cap PO/SL DAILY 12/19/20 U nknown History citalopram 10 mg tablet 10 mg PO DAILY 09/18/2211/18 10:20 History rosuvastatin 5 mg tablet 5 mg PO DAILY 09/18/22 Unkno wn History coenzyme Q10 200 mg capsule 200 mg PO QDAY 03/25/24 Un known History carboxymethylcellulose sodium 1 % 1 drp EACH EYE .week ly 05/18/24 Unknown History eye drops (Artificial Tears (carboxymethylcellulose)) Allergy/AdvReac Type Severity Reaction Status Date / Time Penicillins Allergy Unknown Verified 05/22/24 09:20 Family History Father CAD (coronary artery disease) Diabetes Mother CAD (coronary artery disease) CHF (congestive heart failure) Sister Hypertension Cancer leukemia Surgical History Hx of oral surgery History of esophagogastroduodenoscopy (EGD) History of cardiac catheterization History of right-sided carotid endarterectomy History of sinus surgery History of colonoscopy (~2015) History of cataract extraction H/O hemorrhoidectomy H/O hernia repair Social History Smoking Status: Never smoker alcohol intake: never substance use type: does not use what type of physical activity do you participate in: walking frequency: daily duration: 30-45 minutes/day
--- NOTE | 2024-05-25 12:51 | PCM.HP.STD ---
HPI - General General Date of Admission: 05/25/24 Date of Service: 05/25/24 Chief Complaint: abnormal imaging HPI Narrative MASOOD SIMON, is a 89 M who presents for the evaluation of a 2 cm ovoid soft tissue lesion along the anterior wall of the stomach seen on a CTA of the Chest. [facility] Medical History CPAP (continuous positive airway pressure) dependence Acute cough High cholesterol Aortic dilatation GERD (gastroesophageal reflux disease) Cough Wears hearing aid Wears glasses Arthritis Prostate disease Restless legs TIA (transient ischemic attack) Difficulty swallowing Non-smoker Shortness of breath on exertion Pain History of echocardiogram History of stress test Hypertension Cardiology follow-up encounter Dysphagia Right groin pain Carotid stenosis, bilateral TIA (transient ischemic attack) Pure hypercholesterolemia BPH (benign prostatic hyperplasia) Fatigue Hypertension Osteoarthritis Thoracic aortic aneurysm without rupture Nonrheumatic aortic valve insufficiency Home Medications ?Medication ?Instructions ?Recorded ?Last Taken ?Type aspirin 81 mg chewable tablet 81 mg PO DAILY@0800 heart health 04/14/16 Unknown History tamsulosin 0.4 mg capsule 0.8 mg PO QHS prostate 01/22/17 Unknown History cholecalciferol (vitamin D3) 10 10 mcg PO DAILY 03/11/20 Unknown History mcg (400 unit) chewable tablet (Kids Vitamin D3) melatonin 5 mg capsule 5 mg PO QHS PRN Sleep 03/11/20 Unknown History metoprolol tartrate 25 mg tablet 12.5 mg PO BID 03/11/20 11/27/22 10:20 History omega-3 fatty acids 1,000 mg 1,000 mg PO DAILY 03/11/20 Unknown History capsule (Fish Oil Concentrate) ascorbic acid (vitamin C) 1,000 mg 1 g PO DAILY 09/26/20 Unknown History tablet magnesium oxide 400 mg PO DAILY 09/26/20 Unknown History Prostate B 3 cap PO/SL DAILY 12/19/20 Unknown History citalopram 10 mg tablet 10 mg PO DAILY 09/18/22 11/27/22 10:20 History rosuvastatin 5 mg tablet 5 mg PO DAILY 09/18/22 Unknown History coenzyme Q10 200 mg capsule 200 mg PO QDAY 03/25/24 Unknown History carboxymethylcellulose sodium 1 % 1 drp EACH EYE .weekly 05/18/24 Unknown History eye drops (Artificial Tears (carboxymethylcellulose)) Allergy/AdvReac Type Severity Reaction Status Date / Time Penicillins Allergy Unknown Verified 05/22/24 09:20 Family History Father CAD (coronary artery disease) Diabetes Mother CAD (coronary artery disease) CHF (congestive heart failure) Sister Hypertension Cancer leukemia Surgical History Hx of oral surgery History of esophagogastroduodenoscopy (EGD) History of cardiac catheterization History of right-sided carotid endarterectomy History of sinus surgery History of colonoscopy (~2015) History of cataract extraction H/O hemorrhoidectomy H/O hernia repair Social History Smoking Status: Never smoker alcohol intake: never substance use type: does not use what type of physical activity do you participate in: walking frequency: daily duration: 30-45 minutes/day Physical Exam Const alert, oriented x3, no apparent distress and healthy appearing General Appearance: cooperative GI normal to inspection, nondistended, normoactive bowel sounds, soft to palpation, non-tender and non-distended Percussion: normal to percussion Rectal Exam: deferred Assessment & Plan Assessment/Plan (1) Abnormal CT of the chest: PLAN: 89 yo with h/o aortic aneurysm presents for endoscopic evaluation of an abnormal CT scan of the chest that he had recently. It showed a 2 cm oval lesion in his gastric antrum. He was explained alternatives, risk, benefits including not withstanding bleeding, infection, sepsis, perforation, emergency . He will have an ASA of 3.
--- NOTE | 2024-05-25 13:15 | EGD_PTH ---
PATIENT: MASOOD SIMON LOC: EN U#:[id number] AGE/SX: 89/M ROOM: RE05/25/[address]: Dr. Amarjit Arango DO : 1935 BED: DIS: 05/25/2024 SPEC #: [id number] RECD: 05/26/24 08:53 STATUS: EUGENIO REBrenda #: [id number] RODDY: 05/25/24 13:[address]: Amarjit Arango DEPT: SURGICAL PATHOLOGY RECD BY: Kalin Engle ENTERED: 05/26/24 08:54 SP TYPE: EGD BIOPSY PATRICIO DR: Dr. Keisha Briscoe MD Tissues: A - COLON BIOPSY Procedures: Surgery Specimen Level IV HEADER OPERATION: EGD biopsy PRE-OP DIAGNOSIS: Abnormal CT of chest TISSUE SUBMITTED: A- Submucosal mass biopsy MICROSCOPIC DIAGNOSIS A. Esophagus/stomach/duodenum, submucosal mass, biopsy: * Fragments of oxyntic gastric mucosa with no specific pathologic change. * Scant submucosa with focal adipose tissue - see note. Note: Focal submucosal adipose is a nonspecific finding that could be seen with a submucosal lipoma. Additional submucosal pathology cannot be ruled out. If this biopsy represents only a portion of a larger mass lesion, the findings may not be hardware supplies sales representative. MICROSCOPIC DESCRIPTION Slides are reviewed. GROSS DESCRIPTION A. Received in fixative is one container labeled with the patient's name and designated Submucosal mass biopsy. The specimen consists of multiple irregular fragments of light moreira soft tissue that in aggregate measure 1.6 x 0.2 x 0.2 cm. The specimen is totally submitted in one cassette. 05/26/2024 CPT:61811
--- NOTE | 2024-05-25 14:14 | OP.CCLET_ITS ---
05/25/2024 Keisha Briscoe Re : Upper GI endoscopy procedure for Bogdan Cobb Dear Rachna This procedure was performed on Saturday, May 25, 2024. 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 Biopsied. - No gross lesions in the first portion of the duodenum. Recommendations : - Discharge patient to home. - Resume previous diet. - Continue present medications. - Await pathology results. My findings are described in the full procedure note, which is enclosed. If I can be of further assistance, please feel free to contact me at . Sincerely, Amarjit Arango, 05/25/2024 2:14:09 PM This report has been signed electronically.
--- NOTE | 2024-05-25 14:14 | OP.EGD_ITS ---
Patient Name: Bogdan Cobb Procedure Date: 05/25/2024 1:56 PM Date of : 1935 Age: 89 Procedure: Upper GI endoscopy Indications: Abnormal CT of the GI tract Providers: Amarjit Arango DO Referring MD: Keisha Briscoe Medicines: Monitored Anesthesia Care Patient Profile: This is an 89 year old male. Refer to note in patient chart for documentation of history and physical. Patient has symptoms. Previously obtained CT showed a mass in the stomach. Complications: No immediate complications. Procedure: Pre-Anesthesia Assessment: - Prior to the procedure, a History and Physical was performed, and patient medications and allergies were reviewed. The patient is competent. The risks and benefits of the procedure and the sedation options and risks were discussed with the patient. All questions were answered and informed consent was obtained. Patient identification and proposed procedure were verified by the physician in the pre-procedure area. Mental Status Examination: alert and oriented. Airway Examination: normal oropharyngeal airway and neck mobility. Respiratory Examination: clear to auscultation. CV Examination: normal. Prophylactic Antibiotics: The patient does not require prophylactic antibiotics. Prior Anticoagulants: The patient has taken no anticoagulant or antiplatelet agents except for NSAID medication. ASA Grade Assessment: II - A patient with mild systemic disease. After reviewing the risks and benefits, the patient was deemed in satisfactory condition to undergo the procedure. The anesthesia plan was to use monitored anesthesia care (MAC). Immediately prior to administration of medications, the patient was re-assessed for adequacy to receive sedatives. The heart rate, respiratory rate, oxygen saturations, blood pressure, adequacy of pulmonary ventilation, and response to care were monitored throughout the procedure. The physical status of the patient was re-assessed after the procedure. After obtaining informed consent, the endoscope was passed under direct vision. Throughout the procedure, the patient's blood pressure, pulse, and oxygen saturations were monitored continuously. The gastroscope was introduced through the mouth, and advanced to the second part of duodenum. The upper GI endoscopy was accomplished without difficulty. The patient tolerated the procedure well. Scope In: 2:04:03 PM Scope Out: 2:08:35 PM Total Procedure Duration Time 0 hours 4 minutes 32 seconds Findings: Mucosal changes including ringed esophagus, longitudinal furrows and small-caliber esophagus were found in the entire esophagus. A medium-sized, submucosal, non-circumferential mass with no bleeding and no stigmata of recent bleeding was found in the gastric body. Biopsies were taken with a cold forceps for histology. Verification of patient identification for the specimen was done. Estimated blood loss was minimal. Biopsies were taken with a cold forceps for Helicobacter pylori testing. Verification of patient identification for the specimen was done. Estimated blood loss was minimal. No gross lesions were noted in the first portion of the duodenum. 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 Biopsied. - No gross lesions in the first portion of the duodenum. Recommendation: - Discharge patient to home. - Resume previous diet. - Continue present medications. - Await pathology results. Procedure Code(s): --- Professional --- 14972, Esophagogastroduodenoscopy, flexible, transoral; with biopsy, single or multiple CPT copyright 2021 [employer]. All rights reserved. The codes documented in this report are preliminary and upon motor express clerk review may be revised to meet current compliance requirements. Amarjit Arango DO 05/25/2024 2:14:09 PM This report has been signed electronically. Number of Addenda: 0 Note Initiated On: 05/25/2024 1:56 PM
--- NOTE | 2024-05-25 14:24 | PCM.POST.ANE ---
Anesthesia: Postop Eval I Current Vital Signs Temperature: 97.7 F Pulse Rate: 68 Blood Pressure: 141/66 Respiratory Rate: 16 Pulse Ox: 96 Oxygen Delivery Method: Room Air Assessment Airway patent: Yes Spontaneous unlabored respirations: Yes Mental status: Awake nausea: No Vomiting: No Anesthesia Complication: No Fluid Hydration Crystalloid volume administer (ml): 10 Total IV fluid infused: 10 Progress Note Anesthesia document: Postop Eval 1 completed: Yes
--- NOTE | 2024-05-25 14:25 | PCM.POSTANE2 ---
Anesthesia Postop Eval I Sum Postop Eval Completion status Anesthesia document: Postop Eval 1 completed: Yes Anesthesia Postop Eval I Summary Anesthesia Postop Eval I Summary: Anesthesia Postop Eval I: Assessment Summary Airway patent Yes 05/25/24 14:25 Spontaneous unlabored Yes 05/25/24 14:25 respirations Mental status Awake 05/25/24 14:25 nausea No 05/25/24 14:25 Vomiting No 05/25/24 14:25 Anesthesia Postop Eval I: Fluid Summary Crystalloid volume administer 10 05/25/24 14:25 (ml) Colloids volume administered ( ml) Blood Product volume administered (ml) Total IV fluid infused 10 05/25/24 14:25 Anesthesia Postop Eval I: Summary Notes Anesthesia Complication No 05/25/24 14:25 Anesthesia Complication Comment: Post-operative progress note Anesthesia: Postop Eval II Evaluation Mental status: Awake Pain Level: 0 nausea: No Vomiting: No
--- NOTE | 2024-05-25 14:26 | PCM.POST.ANE ---
Anesthesia: Postop Eval I Current Vital Signs Temperature: 97.9 F Pulse Rate: 68 Blood Pressure: 100/54 Respiratory Rate: 16 Pulse Ox: 94 Oxygen Delivery Method: Nasal Cannula Oxygen Flow Rate (L/min): 2 Assessment Airway patent: Yes Spontaneous unlabored respirations: Yes Mental status: Awake and Calm nausea: No Vomiting: No Anesthesia Complication: No Fluid Hydration Crystalloid volume administer (ml): 30 Total IV fluid infused: 30 Progress Note Anesthesia document: Postop Eval 1 completed: Yes
== END 2024-05-25 15:08 | disposition home or self-care (01) ==
LOC: EN 12:49 → AC 12:50
PROVIDERS: PCP Internal Medicine; Referring Provider Internal Medicine; Visit Provider Internal Medicine Gastroenterology
PROC: 0DJ08ZZ Inspection of Upper Intestinal Tract, Via Natural or Artificial Opening Endoscopic (ICD-10-PCS; CPT 43235; principal; 2024-05-25 13:10)
DX: K22.89 Other specified disease of esophagus (principal); K20.0 Eosinophilic esophagitis; E78.00 Pure hypercholesterolemia, unspecified; I10 Essential (primary) hypertension; K21.9 Gastro-esophageal reflux disease without esophagitis; R91.8 Other nonspecific abnormal finding of lung field; Z79.899 Other long term (current) drug therapy
CPT/HCPCS: 43239; 88305; A4216; J2405

== ENCOUNTER → 2024-07-20 | Outpatient (CLI) | payer MEDICARE, SELFPAY ==
--- NOTE | 2024-07-20 16:13 | RAD_ITS ---
PROCEDURE: FEMUR MIN 2 VIEWS 07/20/2024 REASON FOR EXAM: LEG PAIN TECHNIQUE: Five views of the right femur COMPARISON: None RAD/Femur Min 2 Views IMPRESSION: No acute fracture or dislocation. [id number] degenerative changes of the right hip and moderate degenerative changes of the right knee. No acute soft tissue abnormalities. No radiographic foreign b noelle. Reading Location: [id number]
--- NOTE | 2024-07-20 16:13 | RAD_ITS ---
PROCEDURE: PELVIS 1 OR 2 VIEWS 07/20/2024 REASON FOR EXAM: RIGHT UPPER LEG PAIN TECHNIQUE: 1 view(s) of the pelvis. COMPARISON: None RAD/Pelvis 1 or 2 Views IMPRESSION: Cortical deformity of the superior right pubic rami likely artifact however non displaced fracture is not entirely excluded; if occult fracture is suspected, consider CT for further evaluation. No other acute fractures or dislocations. Moderate degenerative changes of the bilateral hips. No acute soft tissue abnormalities. No radiographic foreign body. Reading Location: [id number]
== END | disposition home or self-care (01) ==
LOC: MTRAD 16:12
PROVIDERS: PCP Internal Medicine; Referring Provider Internal Medicine; Visit Provider Internal Medicine
DX: M79.604 Pain in right leg (principal)
CPT/HCPCS: 72170; 73552

== ENCOUNTER → 2024-07-31 | Outpatient (CLI) | payer MEDICARE, SELFPAY ==
--- NOTE | 2024-07-31 14:31 | CT_ITS ---
PROCEDURE: EXTREMITY LOWER WITHOUT CONTRA 07/31/2024 REASON FOR EXAM: RIGHT HIP PAIN TECHNIQUE: Axial CT images of the right hip obtained without intravenous contrast. Coronal and Sagittal reconstruction series were provided. CONTRAST: None One or more dose reduction techniques were used (e.g., Automated exposure control, adjustment of the mA and/or kV according to patient size, use of iterative reconstruction technique). RADIATION DOSE SUMMARY: CTDlvol: 20.12 mGy DLP: 639.81 mGycm COMPARISON: Prior radiographs dated July 20, 2024. FINDINGS: Bones: No fracture. Joints: Osteoarthritis of the right hip joint as well as the symphysis pubis. Soft Tissues: Vascular calcification. CT/Extremity Lower without Contra IMPRESSION: No acute abnormality is seen. Reading Location: [id number]
== END | disposition home or self-care (01) ==
PROVIDERS: PCP Internal Medicine; Referring Provider Internal Medicine; Visit Provider Internal Medicine
DX: M79.604 Pain in right leg (principal); M25.551 Pain in right hip
CPT/HCPCS: 73700

== ENCOUNTER → 2024-08-12 | Outpatient (CLI) | payer MEDICARE, SELFPAY | END | disposition home or self-care (01) | LOC: LABSPEC 15:23 | PROVIDERS: PCP Internal Medicine; Referring Provider Otolaryngology Otolaryngology/Facial Plastic Surgery; Visit Provider Otolaryngology Otolaryngology/Facial Plastic Surgery | DX: H92.12 Otorrhea, left ear (principal) | CPT/HCPCS: 87070; 87075; 87205 ==

== ENCOUNTER 2024-09-22 10:00 | Outpatient (RCR) | payer MEDICARE, SELFPAY ==
--- NOTE | 2024-08-03 18:02 | HP.PTEVAL ---
Patient's Visit Information Visit Information Visit Information: MASOOD SIMON is a 89 year old M referred to Physical Therapy by Dr. Keisha Briscoe MD with a diagnosis of RIGHT LEG PAIN ,UNSTAEDY GAIT ,FALLS. Date of Evaluation: 08/03/24 Physical Therapist: Vincent Solis, PT, Cert MDT, OCS Visit Plan Frequency: 2x /Week Duration: 3 Weeks Plan: PT INTERVENTIONS ROM HIP ,STRENGTHENING RIGHT HIP FLEXORS/GLUT MEDIUS ,FUNCTIONAL STRENGTHENING ,FLEXABILITY ,AND HIGH LEVEL BALANCE Subjective Subjective: This 89 y/o male presents to physical therapy with unsteady gait and right leg pain. Patient fell tripped over cord against fire place 2 weeks ago,then 1 week ago against bed hit right leg. 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 Recommended PT . Patient is active and works in [employer] and golf. Pain located right hip.No dizziness/nausea. 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 Patient walks daily. Patient pain affects sleeping ,pain aches in leg . Exercises daily. Aggravating laying ,walking ,squatting ,kneeling. Alleviating nothing,sittingTeylonal. Patient symptoms affects QOL . SOCIAL: VOCATION: RETIRED Pain Right Lower Extremity: Pain Intensity (Out of 10): 5 Pain Intensity Range: 10 Comment: KAILA Objective Objective: POSTURE: mild forward posture PALAPTION:unremarkable NEURO: denies paresthesia/tingling,reflexes intact GAIT: reciprocal pattern FLEXABILITY: mod tight hamstrings MMT: quads/hams 4/5 ,( peak force) hip flexion 27.3,hip abduction 8.2 ,ankle DF LUMBAR ROM: flexion mod loss ( due to hamstring tightness) ,extension ,mod loss ,side glides PROM: flexion ~100 degrees pain ,IR 15 degrees ,hip abduction 35 degrees -QUADRANT TEST TO RIGHT Special Tests L/S Slump test left side: Negative L/S Slump test right side: Negative L/S Left Straight Leg Raise: Negative L/S Right Straight Leg Raise: Negative Balance/Special Test Scores Functional Gait Assessment Score: 29 % Disability: 3.3400 CATSIB Score (Max score 120 seconds): 105 Lower Extremity Functional Score: 26 Goals Goal 1:: Patient to be I with HEP strengthening Goal Time Frame: 4-6 Weeks Goal 2:: Patient to improve hip ROM flexion by 10 degrees to improve function and ADLS Goal Time Frame: 4-6 Weeks Goal 3:: Patient to improve LFES score by 5 - 8 points to improve OQL Goal Time Frame: 4-6 Weeks Goal 4:: Patient to improve peak force hip flexion /abduction by 5-10# to function and stairs Goal Time Frame: 4-6 Weeks Goal 5:: Patient to demonstrate 50% improvement function and gait Goal Time Frame: 4-6 Weeks Rehabilitation Potential Physical Therapy Diagnosis: This patient has has right hip and leg pain from deformity of the superior right pubic rami nondisplaced ,with weakness ,pain right hip with mild balance deficits and r/o lumbar involvement thus benefit from skilled PT Rehabilitation Potential: Good Anticipated Interventions Patient/Client Instruction: Educate patient on: Condition and Plan of Care For the Purpose of:: To decrease pain, To increase ROM, To improve muscle performance and motor function, To improve ability to perform ADL's, To increase tolerance to activity/condition/position, To improve ability of physical actions for home/community/work/leisure, To improve gait and locomotor functions, To improve health of tissue, To decrease soft tissue restriction, To increase flexibility/ROM and To improve balance Therapeutic Exercise to Include: Strength training, Endurance training, Balance training, Flexibilty training, Passive ROM and Active ROM Comment: QAUDS/HAMS/HIP For the Purpose of:: To decrease pain, To increase ROM, To improve muscle performance and motor function, To increase tolerance to activity/condition/position, To improve ability of physical actions for home/community/work/leisure, To improve gait and locomotor functions, To improve health of tissue, To decrease soft tissue restriction, To increase flexibility/ROM, To improve endurance and To improve balance Text: Thank you for the opportunity to evaluate your patient. For Medicare and Medicare HMO plans, please review the plan of care and approve it. It will need to be FAXED BACK to us at [phone] for Medicare purposes. For Medicare only, by signing this I certify the plan of care. Please let me know if there are questions or concerns regarding this plan of care. Physician Signature: Date:
--- NOTE | 2024-09-03 10:23 | HP.PTREVAL_ITS ---
Re-Evaluation Intro: Dr. Keisha Briscoe MD, It has been my pleasure to treat MASOOD SIMON over the last 7 visits for RIGHT LEG PAIN ,UNSTAEDY GAIT ,FALLS. Please see the progress note below for an update on the physical therapy plan of care! Subjective Subjective: Pain doing better with leg right Patient elbow is sore medial Objective Objective/Function: POSTURE: mild forward posture PALAPTION:unremarkable NEURO: denies paresthesia/tingling,reflexes intact GAIT: reciprocal pattern FLEXABILITY: mod tight hamstrings MMT: quads/hams 4/5 ,( peak force) hip flexion 40.3,hip abduction 29.2 ,ankle DF LUMBAR ROM: flexion mod loss ( due to hamstring tightness) ,extension ,mod loss ,side glides PROM: flexion ~105 degrees pain ,IR 25 degrees ,ER 35 degrees hip abduction 40 degrees Plan Plan Plan: PT INTERVENTIONS ROM HIP ,STRENGTHENING RIGHT HIP FLEXORS/GLUT MEDIUS ,FUNCTIONAL STRENGTHENING ,FLEXABILITY ,AND HIGH LEVEL BALANCE Balance/Gait/Functional tests Balance/Special Test Scores Functional Gait Assessment Score: 29 % Disability: 3.3400 CATSIB Score (Max score 120 seconds): 105 Lower Extremity Functional Score: 47 Goals Goals Goal 1:: Patient to be I with HEP strengthening Goal Time Frame: 4-6 Weeks Goal Progress: Progressing Goal 2:: Patient to improve hip ROM flexion by 10 degrees to improve function and ADLS Goal Time Frame: 4-6 Weeks Goal 3:: Patient to improve LFES score by 5 - 8 points to improve OQL( NEW GAOL) Goal Time Frame: 4-6 Weeks Goal 4:: Patient to improve peak force hip flexion /abduction by 5-10# to function and stairs( NEW GOAL) Goal Time Frame: 4-6 Weeks Goal 5:: Patient to demonstrate 80% improvement function and gait ( NEW GOAL) Goal Time Frame: 4-6 Weeks Anticipated Interventions Anticipated Interventions Patient/Client Instruction: Educate patient on: Condition and Plan of Care For the Purpose of:: To decrease pain, To increase ROM, To improve muscle performance and motor function, To improve ability to perform ADL's, To increase tolerance to activity/condition/position, To improve ability of physical actions for home/community/work/leisure, To improve gait and locomotor functions, To improve health of tissue, To decrease soft tissue restriction, To increase flexibility/ROM and To improve balance Therapeutic Exercise to Include: Strength training, Endurance training, Balance training, Flexibilty training, Passive ROM and Active ROM Comment: QAUDS/HAMS/HIP For the Purpose of:: To decrease pain, To increase ROM, To improve muscle p erformance and motor function, To increase tolerance to activity/condition/position, To improve ability of physical actions for home/community/work/leisure, To improve gait and locomotor functions, To improve health of tissue, To decrease soft tissue restriction, To increase flexibility/ROM, To improve endurance and To improve balance Re-Evaluation Ending Re-evaluation ending: Please do not hesitate to contact me at [phone] by phone or if you have questions or concerns regarding this new plan of care! Sincerely, Vincent Solis, PT, Cert MDT, OCS
== END 2024-09-22 19:00 | disposition home or self-care (01) ==
LOC: PT 10:00
PROVIDERS: PCP Internal Medicine; Referring Provider Internal Medicine; Visit Provider Internal Medicine
DX: R26.81 Unsteadiness on feet (principal); R29.6 Repeated falls; M79.604 Pain in right leg
CPT/HCPCS: 97110; 97162; 97530

== ENCOUNTER → 2024-10-15 | Outpatient (CLI) | payer MEDICARE, SELFPAY ==
[2024-10-15 12:56] LABS: Mucous, Urine 0 SEEN /hpf (<or=2+); Red Blood Cells-Urine 0 SEEN /hpf (0-5); Squamous Epithelial Cells - UA 0 SEEN /hpf (0-5)
[2024-10-15 13:00] LABS: Hematocrit 42.2 % (40-54); Hemoglobin 13.9 g/dL (13.0-16.5); Immature Granulocytes Count 0.010 X10^3/uL (0.0-0.0); Mean Corp Hgb Conc 32.9 g/dL (32-36); Mean Corpuscular Volume 93.0 fL (80-94); Mean Platelet Vol. 11.0 fl (6.2-12.0); NRBC Flagged by Analyzer 0 % (0-5); Platelet Count 181 K/mm3 (150-450); RBC Distribution Width CV 13.2 % (11.6-14.6); RBC Distribution Width SD 45.2 fl (35.1-43.9); Red Blood Count 4.54 M/mm3 (4.6-6.2); White Blood Count 4.7 K/mm3 (4.4-11.0)
[2024-10-15 13:10] LABS: Color, Urine Yellow (Yellow); Glucose, Dipstick Normal (Normal); Ketone-Dipstick Negative (Negative); Leukocyte Esterase-Dipstick Negative /ul (Negative); Nitrite-Dipstick Negative (Negative); Occult Blood-Urine Negative /ul (Negative); Protein-Dipstick 15 mg/dl (Negative); Specific Gravity, Urine 1.020 (1.002-1.030); Urine Bilirubin Dipstick Negative (Negative)
[2024-10-15 14:06] LABS: AST(SGOT) 18 U/L (<=37); Alanine Aminotransfer ALT/SGPT 16 U/L (<=46); Albumin, Serum 4.4 g/dL (3.4-4.8); Alkaline Phosphatase 68 U/L (40-129); Anion Gap 12 (5-15); BUN 19 mg/dL (4-19); BUN/Creat Ratio 16.6 RATIO (10-20); Calcium,Total 9.2 mg/dL (7.6-11.0); Carbon Dioxide 23.6 mmol/L (21.0-32.0); Chloride 106 mmol/L (98-108); Globulin 1.7 g/dL (2.2-4.2); Glucose 94 mg/dL (70-99); Potassium 4.4 mmol/L (3.3-5.1)
[2024-10-15 14:21] LABS: Creatinine, Urine (random) 125.00 mg/dL (39.00-259.00); Microalbumin,Random Urine < 12.0 mg/L (<20 mg/L)
[2024-10-21 17:08] LABS: PSA, Total 3.3 ng/mL (0.0-4.0)
== END | disposition home or self-care (01) ==
LOC: LABSPEC 12:35
PROVIDERS: PCP Internal Medicine; Referring Provider Internal Medicine; Visit Provider Internal Medicine
DX: Z12.5 Encounter for screening for malignant neoplasm of prostate (principal); I10 Essential (primary) hypertension; N40.0 Benign prostatic hyperplasia without lower urinary tract symptoms; R97.20 Elevated prostate specific antigen [PSA]
CPT/HCPCS: 80053; 81001; 82043; 82570; 84153; 85025

== ENCOUNTER → 2024-11-17 | Outpatient (CLI) | payer MEDICARE, SELFPAY ==
--- NOTE | 2024-11-17 07:43 | CT_ITS ---
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 DUE IN 04/2025 TECHNIQUE: Procedure Code: [id number] Modality: CT Procedure: CTA CHEST W/WO CONTRAST Multiplanar Sagittal and Coronal images were obtained. 3D post processing was performed CONTRAST: Isovue 370 VOLUME: 100 mL One or more dose reduction techniques were used (e.g., Automated exposure control, adjustment of the mA and/or kV according to patient size, use of iterative reconstruction technique). RADIATION DOSE SUMMARY: CTDlvol: 31 mGy DLP: 548 mGycm COMPARISON: May 18, 2024 # of known CTs in the past 12 months: 1 # of known Cardiac Nuclear Medicine Studies in the past 12 months: 0 FINDINGS: Thoracic Aorta: Mild atherosclerotic plaque is present. New mild aneurysmal dilation of the ascending thoracic aorta at the level the main pulmonary artery is 4.1 cm, while the descending thoracic aorta same level is 2.7 cm. Measurements (cm): Sinuses of Valsalva: 4.3 cm (limited by motion) Sinotubular junction: 3.9 cm Mid ascendin.1 cm Proximal aortic arch: 3.7 cm Mid aortic arch: 2.5 cm Proximal descendin.8 cm Mid descendin.7 cm Aorta at diaphragm: 2.7 cm Aorta at celiac axis: 2.6 cm Heart: Normal-size. No pericardial effusion. Mild coronary artery atherosclerosis of the LAD and proximal circumflex. Pulmonary Vessels: Normal-size. Timing not optimized for the evaluation of pulmonary embolus. Hardware: None Lymph nodes: None appear enlarged. Lungs and Airways: No consolidation, mass or worrisome nodule. Very mild mosaic attenuation. Pleura: No pleural effusion or pneumothorax. Upper Abdomen: Unremarkable Bones: Degenerative changes of the thoracic spine. CT/CTA Chest W/WO Contrast IMPRESSION: 1. No change in the appearance of the mild aneurysmal dilation of the ascendin g thoracic aorta. Maximal dimension mid ascending thoracic aorta 4.1 cm. Reading Location: [id number]
== END | disposition home or self-care (01) ==
LOC: CT 07:40
PROVIDERS: PCP Internal Medicine; Referring Provider Internal Medicine; Visit Provider Internal Medicine
DX: I71.21 Aneurysm of the ascending aorta, without rupture (principal)
CPT/HCPCS: 71275; Q9967